=== PATIENT | female | born 1965 | race Caucasian/White ===

== ENCOUNTER 2020-09-22 13:06 | Observation (INO) | payer OTHER, SELFPAY ==
[2020-09-22 13:07] VITALS: BP 122/77; PULSE 88; RESP 14; TEMP 36.8; O2SAT 100; BMI 36.6
[2020-09-22 13:09] VITALS: BP 122/77; PULSE 88; RESP 14; TEMP 36.8; O2SAT 100
--- NOTE | 2020-09-22 13:23 | EX.ED.DYSGE1 ---
HPI History of Present Illness Chief Complaint: Cellulitis Informant: patient and spouse/S.O. Onset/Context/Timing Onset: Days Context: Gradual Onset Current Severity: Mild Maximum Severity: Mild Narrative Narrative: 55-year-old female no segment past medical history currently on no medications other than vitamins. States that 2 days ago she started getting mild redness to her right lower extremity and it is gotten worse. Says she feels nauseated and dizzy. Denies fever. Denies any vomiting or diarrhea. She is never had this before. She denies any known trauma to her right lower extremity. Prior similar symptoms: No Recent Illness/Hospitalization: No PFSH PFSH no medical history Home Medications multivitamin 1 cap PO DAILY 09/22/20 [History Last Taken Unknown] Allergy/AdvReac Type Severity Reaction Status Date / Time codeine AdvReac Nausea Verified 09/22/20 13:09 Surgical History H/O hernia repair Tubal ligation status Social History Smoking Status: Never smoker ROS ROS ED ROS Narrative Nausea and dizziness. Review of Systems ROS Unobtainable: Denies due to encephalopathy Constitutional Constitutional ED: Denies chills or fever(s) Eyes Eyes: Denies blurry vision or change in vision ENT ENT ED: Denies ear pain or sore throat Cardiovascular Cardiovascular: Denies chest pain Respiratory/Chest Respiratory/Chest: Denies dyspnea Gastrointestinal Gastrointestinal: Reports nausea; Denies abdominal pain, diarrhea or vomiting Genitourinary Genitourinary ED: Denies dysuria or hematuria Musculoskeletal Musculoskeletal: Denies myalgias Integumentary Reports rash Neurologic Neurologic: Denies headache(s) Psychiatric Psychiatric: Denies depression Endocrine Endocrinology: Denies polyuria Allergic/Immunologic Allergic/Immunologic ED: Denies urticaria EXAM Physical Exam Narrative Exam Narrative: White female no acute distress. Initial blood pressure 122/77. Heart rate 88. She does not look septic or toxic. She has an obvious cellulitis on her right lower extremity between the knee and the ankle. Not involving the joints. Right foot is neurovascularly intact. Skin is intact. There is red and warm to the touch. Mildly tender. There is no inguinal lymphadenopathy. Lungs are clear. Heart regular rhythm. No murmur. Abdomen nontender. Const Vital Signs: 09/22/20 13:07 09/22/20 13:09 Temperature 98.2 F 98.2 F Temperature Source Oral Oral Pulse Rate 88 88 Respiratory Rate 14 14 Blood Pressure 122/77 H 122/77 H Blood Pressure Mean 92 92 Pulse Ox 100 100 Oxygen Delivery Method Room Air Room Air Positive well nourished and well developed; Negative for unkempt General Appearance ED: well developed and NAD; Negative for unkempt HEENT Reports moist mucous membranes Negative for trauma or tenderness Eyes PERRL and EOMs intact bilaterally Neck no lymphadenopathy, supple and no JVD General: Negative for tenderness Chest Wall inspection of chest normal Resp normal respiratory effort and clear to auscultation bilaterally Cardio regular rate, regular rhythm, S1 normal heart sound, S2 normal heart sound and no murmurs GI normal to inspection, nondistended, normoactive bowel sounds, non-tender and non-distended Palpation: soft Back/Spine no CVA tenderness Extremity Extremity Narrative: Right lower extremity cellulitis. General Extremety ED: Yes edema and tenderness General Extremity: edema Neuro oriented x3 and CN's II-XII intact bilaterally Sensorium / Orientation: alert; Negative for lethargic or stuporous Motor Exam: strength 5/5 throughout Psych mental status grossly normal Appearance: Negative for unkempt Skin no wounds Rashes: rashes noted MDM MDM MDM Narrative Medical decision making narrative: Middle-aged female with a cellulitis of right lower extremity. Will be started on IV Zosyn and vancomycin. Labs being obtained. She will be admitted to the hospital. Repeat exam unchanged at 2:10 PM. I discussed test results with patient. Awaiting hospitalist for admission. Lab Data Attestation: I reviewed the patient's lab results. Lab results narrative: CBC shows white count 10. Hemoglobin 13. No bands. Electrolytes show sodium 129. Gap at 9. Creatinine 0.8. Glucose elevated 358. Lactic acid normal at 1.9. The elevated glucose will need further evaluation because the patient tells me she is not diabetic. Labs: Laboratory Results - last 24 hr 09/22/20 09/22/20 09/22/20 13:25 13:25 13:25 WBC 10.3 RBC 4.54 Hgb 13.1 Hct 39.2 MCV 86.3 MCH 28.9 MCHC 33.4 RDW Std Deviation 39.8 RDW Coeff of Giuliano 12.5 Plt Count 331 MPV 9.3 Immature Gran % (Auto) 0.600 Neut % (Auto) 84.8 H Lymph % (Auto) 8.9 L [place] % (Auto) 5.4 Eos % (Auto) 0.1 Baso % (Auto) 0.2 Absolute Neuts (auto) 8.7 H Absolute Lymphs (auto) 0.92 Nucleated RBC % 0 Sodium 129 L Potassium 3.7 Chloride 93 L Carbon Dioxide 27.0 Anion Gap 9 BUN 23 H Creatinine 0.81 Estim Creat Clear Calc 76.31 Est GFR (MDRD) Af Amer 94 Est GFR (MDRD) Non-Af 78 BUN/Creatinine Ratio 28.4 H Glucose 358 H Lactic Acid 1.9 Calcium 9.2 Discharge Plan Dx/Rx/DC Orders Clinical Impression: Cellulitis of leg, right, Acute hyperglycemia, Diabetes mellitus, new onset, Acute hyponatremia Disposition Disposition: Acute Care [facility]
[2020-09-22 13:37] LABS: Absolute Lymphocyte Count 0.92 X10^3/uL (0.83-4.51); Absolute Neutrophil Count 8.7 X10^3/uL (2.0-7.7); Basophil# 0.02 X10^3/uL; Basophil% 0.2 % (0-1); Eosinophil# 0.01 X10^3/uL; Eosinophils% 0.1 % (0-5); Hematocrit 39.2 % (37-47); Hemoglobin 13.1 g/dL (12.0-15.0); Lymphocyte # 0.92 X10^3/ul (0.83-4.51); Lymphocyte % 8.9 % (19-41); Mean Corp Hgb Conc 33.4 g/dL (32-36); Mean Corpuscular Hgb 28.9 pg (27.0-32.0); Mean Corpuscular Volume 86.3 fL (81-99); Mean Platelet Vol. 9.3 fl (6.2-12.0); Monocyte# 0.55 X10^3/uL; Monocyte% 5.4 % (0-10); NRBC Flagged by Analyzer 0 % (0-5); Neutrophil # 8.72 X10^3/uL (2.7-7.7); Neutrophil % 84.8 % (47-70); Platelet Count 331 K/mm3 (150-450); RBC Distribution Width CV 12.5 % (11.6-14.6); RBC Distribution Width SD 39.8 fl (35.1-43.9); Red Blood Count 4.54 M/mm3 (4.2-5.4); White Blood Count 10.3 K/mm3 (4.4-11.0)
[2020-09-22] MEDS: 0.9% Normal Saline 1,000 ML 999 ML IV (13:38)
[2020-09-22] MEDS: Ondansetron 4 MG/2 ML Vial IV ×2 (13:38→22:46)
[2020-09-22 13:52] LABS: Anion Gap 9 (5-15); BUN 23 mg/dL (7-18); BUN/Creat Ratio 28.4 RATIO (10-20); Calcium,Total 9.2 mg/dL (8.5-10.1); Chloride 93 mmol/L (98-107); Creatinine, Serum 0.81 mg/dL (0.55-1.02); EST Glomerular Filtration Rate 78 mL/min (>60); Est Glom Filt Rate - Afr Amer 94 mL/min (>60); Estimated Creatinine Clearance 76.31 ml/min; Glucose 358 mg/dL (74-106); Potassium 3.7 mmol/L (3.5-5.1); Sodium Level 129 mmol/L (136-145)
[2020-09-22 13:59] LABS: Lactic Acid 1.9 mmol/L (0.4-1.9)
[2020-09-22 14:27] VITALS: BP 135/76; PULSE 88; RESP 16; TEMP 36.9; O2SAT 98
--- NOTE | 2020-09-22 15:03 | HP.PCM_ITS ---
Documented by User: JOVITA Lerma 09/22/20 15:17 HPI - General General Date of Admission: 09/22/20 Date of Service: 09/22/20 Chief Complaint: Right lower extremity cellulitis, new onset diabetes mellitus type 2 HPI Narrative SARAI MURILLO, is a 55 F who presents with complaints of right lower extremity redness and swelling. Patient states that started approximately 2 days ago and she is unsure if she has scratched herself. Patient also reports nausea and occasional lightheadedness. Patient reports that she does not currently have a PCP as she has been otherwise healthy in the past and does not currently have health insurance. Patient denies fever, chills, shortness of breath, chest pain, vomiting, diarrhea, constipation. [facility] Medical History (Updated 09/22/20 @ 15:05 by Shayna Tam NP-C) Diabetes mellitus, new onset Home Medications multivitamin 1 tab PO DAILY 09/22/20 [History Last Taken 09/22/20] Allergy/AdvReac Type Severity Reaction Status Date / Time codeine AdvReac Nausea Verified 09/22/20 13:09 Family History (Updated 09/22/20 @ 15:05 by JOVITA Lerma) Father Diabetes Surgical History H/O hernia repair Tubal ligation status Social History Smoking Status: Never smoker ROS Constitutional Constitutional: Denies anorexia, chills, fatigue or weakness Cardiovascular Cardiovascular: Reports edema; Denies chest pain or palpitations Respiratory/Chest Respiratory/Chest: Denies cough, shortness of breath at rest or shortness of breath with exertion Gastrointestinal Gastrointestinal: Reports nausea; Denies abdominal pain, constipation, diarrhea or vomiting Genitourinary Genitourinary: Denies dysuria or polyuria Musculoskeletal Musculoskeletal: Denies back pain, extremity pain, joint pain or joint stiffness Integumentary Integumentary: Reports rash; Denies dry skin Neurologic Neurologic: Denies abnormal gait, abnormal speech, confusion, dizziness or focal weakness Psychiatric Psychiatric: Denies anxiety or depression Endocrine Endocrinology: Denies change in body appearance Hematologic/Lymphatic Hematologic/Lymphatic: Denies easy bleeding or easy bruising Vital Signs Vital Signs Vital Signs: 09/22/20 13:07 09/22/20 13:09 09/22/20 14:27 Temperature 98.2 F 98.2 F 98.5 F Temperature Source Oral Oral Oral Pulse Rate 88 88 88 Respiratory Rate 14 14 16 Blood Pressure 122/77 H 122/77 H 135/76 H Blood Pressure Mean 92 92 95 Pulse Ox 100 100 98 Oxygen Delivery Method Room Air Room Air Room Air Weight Weight: 234 lb Body Mass Index (BMI) 36.6 Physical Exam Const alert and oriented x3 General Appearance: cooperative HEENT normocephalic and head/scalp atraumatic Eyes conjunctivae normal and no scleral icterus Neck supple and no JVD General: trachea midline Resp normal respiratory effort, normal air movement and clear to auscultation bilaterally Cardio regular rate, regular rhythm, S1 normal heart sound and S2 normal heart sound GI normal to inspection, nondistended, normoactive bowel sounds, soft to palpation and non-tender Extremity normal capillary refill General Extremity: edema right lower extremity moderate and no tenderness to palpation of joints or extremities Skin General Skin Exam: turgor normal Rashes: rashes noted Right lower extremity patch symmetrical erythematous dry, shiny and warm nontender cellulitis Neuro no focal motor deficits and no sensory deficits noted Speech: speech normal Motor Exam: strength 5/5 throughout; Negative for general weakness Psych thought process normal, cooperative and affect normal Appearance: appropriate Results Lab / Micro Data Result Diagrams: 09/22/20 13:25 09/22/20 13:25 Labs: Laboratory Results - last 24 hr 09/22/20 13:25: WBC 10.3, RBC 4.54, Hgb 13.1, Hct 39.2, MCV 86.3, MCH 28.9, MCHC 33.4, RDW Std Deviation 39.8, RDW Coeff of Giuliano 12.5, Plt Count 331, MPV 9.3, Immature Gran % (Auto) 0.600, Neut % (Auto) 84.8 H, Lymph % (Auto) 8.9 L, [place] % (Auto) 5.4, Eos % (Auto) 0.1, Baso % (Auto) 0.2, Absolute Neuts (auto) 8.7 H, Absolute Lymphs (auto) 0.92, Nucleated RBC % 0 09/22/20 13:25: Sodium 129 L, Potassium 3.7, Chloride 93 L, Carbon Dioxide 27.0, Anion Gap 9, BUN 23 H, Creatinine 0.81, Estim Creat Clear Calc 76.31, Est GFR (MDRD) Af Amer 94, Est GFR (MDRD) Non-Af 78, BUN/Creatinine Ratio 28.4 H, Glucose 358 H, Calcium 9.2 09/22/20 13:25: Lactic Acid 1.9 Assessment & Plan Assessment/Plan (1) Cellulitis of leg, right: (2) Diabetes mellitus, new onset: (3) Acute hyponatremia: PLAN: 1. Cellulitis of right lower leg -admit to [facility] for observation -Will DC Vanco and Zosyn, initiate Ancef -Errol wrap to right lower leg -CBC and BMP ordered daily -Elevate extremity when in bed or in chair -Cover blistered area to posterior right lower extremity with gauze prior to applying Errol wrap 2. New onset diabetes mellitus type 2 -Will initiate patient on Amaryl 4 mg p.o. daily and Metformin 500 mg p.o. twice daily -AC at bedtime blood sugars with sliding scale insulin ordered -Would recommend follow-up with Dr. Kendall Knapp after discharge -Patient currently has no PCP, discussed with patient and will finish list of available providers in area as patient will need extensive follow-up to monitor progress of cellulitis. 3. Acute hyponatremia -Likely secondary to dehydration as patient states she has not ate or drink anything in the past 2 to 3 days if she has felt unwell -Will obtain daily BMP, kidney function currently stable -Patient received 1 L normal saline bolus in ER, will hold off on IV fluids at this time however encourage patient to increase p.o. intake and utilize antiemetics as needed. DVT prophylaxis-not indicated, encourage ambulation This patient was seen by Shayna Tam, JAZMYN-C under the supervision of Dr. Morales. Documented by User: Dr. Nicanor Morales DO 09/22/20 17:32 HPI - General General Date of Admission: 09/22/20 [facility] Medical History (Updated 09/22/20 @ 15:05 by YESICA LermaC) Diabetes mellitus, new onset Home Medications multivitamin 1 tab PO DAILY 09/22/20 [History Last Taken 09/22/20] Allergy/AdvReac Type Severity Reaction Status Date / Time codeine AdvReac Nausea Verified 09/22/20 13:09 Family History (Updated 09/22/20 @ 15:05 by YESICA LermaC) Father Diabetes Surgical History H/O hernia repair Tubal ligation status Social History Smoking Status: Never smoker Results Lab / Micro Data Result Diagrams: 09/22/20 13:25 09/22/20 13:25 Charges/Coding Addendum Addendum: Patient was seen and examined in the emergency room today independently of Mindi Tam, she came to the ER today for evaluation of extreme right lower leg redness and swelling over the last 2 days. Patient denies any trauma to the leg. She does not take any medications at home and has no history of any medical problems according to the patient. On examination she appeared in good health and spirits, she does not appear to be in any distress. Vital signs as documented. Skin warm and dry and without overt rashes. Neck without JVD, thyroid appears normal, trachea is midline, neck is supple. Lungs clear, normal air movement was noted. Heart exam notable for regular rhythm, normal sounds and absence of murmurs, rubs or gallops. Abdomen unremarkable and without evidence of organomegaly, masses, or abdominal aortic enlargement, bowel sounds are present in all 4 quadrants, no abdominal tenderness was noted. Extremities-severe edema of the right lower leg was noted to be present, there was a reddened rash over the majority of the right lower leg along with bullous skin areas behind the right lower leg, no cyanosis was noted, no clubbing was noted. Neuro: Cranial nerves II through XII are grossly intact, no focal motor deficits were noted, sensation to light touch and pinprick is intact, motor exam 5/5 throughout. Psych: Patient is alert and oriented x3, she does not appear anxious or depressed, she does not appear agitated.\ Patient's labs revealed normal white blood cell count, patient's blood sugar was elevated at 358. Patient will be placed in observation status for right lower leg cellulitis, she was given Zosyn and vancomycin in the emergency room, I will maintain her on IV Ancef and wrap her right lower leg. Patient will be placed on oral diabetic medications and blood sugars will be monitored and she will be given sliding scale insulin. Patient will need follow-up with a PCP at the time of discharge from the hospital, she does not have a primary care doctor at this time. I have reviewed Mindi Anel's history and physical including her medical assessment and plan of care and endorse it. Visit Charges OBSV E&M: 90221 Initial observation care L3
[2020-09-22 15:23] VITALS: BP 135/76; PULSE 88; RESP 16; TEMP 36.9; O2SAT 100
[2020-09-22 16:00] VITALS: BMI 36.6
--- NOTE | 2020-09-22 16:14 | NURSING ---
wound photo: right great toe
--- NOTE | 2020-09-22 16:14 | NURSING ---
skin photo: right lower leg
[2020-09-22 16:50] LABS: Bedside Glucose 282 mg/dL (70-110)
[2020-09-22] MEDS: Insulin Lispro 100 UNIT/ML INSULN.PEN SC ×2 (16:58→23:02)
[2020-09-22] MEDS: metFORMIN HCl 500 MG Tablet PO (16:59)
[2020-09-22 18:27] LABS: M R Staph aureus DNA By PCR Negative (Negative); Probe Check PASS; Specimen Processing Control PASS; Staph aureus DNA By PCR NEGATIVE (Negative)
--- NOTE | 2020-09-22 20:18 | RAD_ITS ---
STUDY: X-RAY - RIGHT FOOT CLINICAL: Female, 55 years old. Right great toe ulcer TECHNIQUE: 3 view(s) of the foot. COMPARISON: None. FINDINGS: Normal talus, calcaneus, and tarsal bones. Plantar calcaneal spurring. Normal visualized subtalar, talonavicular, calcaneocuboid, tarsal and tarsometatarsal articulations. Normal metatarsi. Normal metatarsophalangeal joint of the great toe. Normal tibial and fibular sesamoid bones. Normal interphalangeal joint of the great toe. Normal phalanges of the great toe. Normal second through fifth metatarsophalangeal joints. Normal interphalangeal joints and phalanges of the lesser toes. Soft tissue swelling of the foot and the first toe. RAD/Foot min 3 Views IMPRESSION: Soft tissue swelling of the foot and first toe. No definite radiographic evidence of osteomyelitis. Electronically Signed: Clint Hanson DO at 22:57 EDT Tel [phone], Service support ,
--- NOTE | 2020-09-22 20:18 | RAD_ITS ---
STUDY: X-RAY - RIGHT TIBIA AND FIBULA REASON FOR EXAM: Female, 55 years old. Cellulitis right leg TECHNIQUE: 2 view(s) of the tibia and fibula were obtained. COMPARISON: None. FINDINGS: Normal visualized tibia. Normal visualized fibula. There is soft tissue edema. RAD/Tibia & Fibula 2 Views IMPRESSION: No acute pathology of the tibia and fibula. Soft tissue edema of the lower leg. Electronically Signed: Clint Hanson DO at 22:54 EDT Tel [phone], Service support ,
[2020-09-22 20:25] VITALS: O2SAT 95
--- NOTE | 2020-09-22 22:20 | PCM.CONS.GEN ---
Assessment & Plan Assessment/Plan (1) Cellulitis of leg, right: PLAN: Evaluation performed. Right foot and tib/fib xrays here obtained, no evidence of gas or acute osteomyelitis, radiology read pending. clinically there is no cellulitis or evidence of infection directly to the ulceration on the right 1st toe or foot, however ulceration could have been portal of entry for bacteria to cause right leg cellulitis. A culture of the right 1st toe ulcer has been obtained and results pending. The right leg has a blister which is superficial - after consent was obtained and blister was gently drained and cultured - this was sent to microbiology. Patient has normal WBC and is afebrile. She was diagnosed with diabetes today. After consent was obtained right 1st toe ulceration was debrided in excisional fashion using a 15 blade. Excised all nonviable tissue down to healthy viable base and margins - there is no probe to bone. It was debrided down to subcutaneous tissue layer. No anesthesia was needed due to patient's neuropathy. Hemostasis was achieved with pressure and gauze. Post debridement the ulcer measured 2.5cm x 1.3cm and 0.2cm in depth down to the subcutaneous tissue. A dressing was applied which consisted of betadine soln and gauze, kerlix and nirav dressing. Change daily using Aquacel Ag and gauze, kerlix and nirav. No weightbearing on right forefoot ulceration site- reviewed importance of this with patient. Reviewed proper wound care, and the importance of proper blood sugar control to help optimize wound healing. Patient with chronic wound - noninvasive vascular studies will be ordered. Podiatry will continue to follow - thank you from consult. (2) Diabetes mellitus with diabetic polyneuropathy: (3) Non-pressure chronic ulcer of other part of right foot with fat layer exposed: (4) Type 2 diabetes mellitus with foot ulcer: (5) Diabetes mellitus, new onset: HPI Consult Data Date of Consult: 09/22/20 HPI Narrative HPI Narrative: SARAI MURILLO, is a 55 F who presents with right leg cellulitis and right 1st toe ulceration. Patient was found to have hyperglycemia today, she did not know she had diabetes. She relates she had had a wound to the right 1st toe for about 1 year, she has not gone to a physician for many years. She has been trying to maintain the wound herself but it has not healed. She presented to the ER today due to right leg redness - diagnosed with cellulitis and was admitted for further evaluation and management. Patient denies any pain to the wound right 1st toe. She has no fever, vomiting, or chills but relates to some nausea. No other complaints. [facility] Medical History (Updated 09/22/20 @ 22:[address] Chaz Chance, DPM) Diabetes mellitus, new onset Home Medications multivitamin 1 tab PO DAILY 09/22/20 [History Last Taken 09/22/20] Allergy/AdvReac Type Severity Reaction Status Date / Time codeine AdvReac Nausea Verified 09/22/20 13:09 Family History (Updated 09/22/20 @ 15:05 by Shayna Tam, JAZMYN-C) Father Diabetes Surgical History H/O hernia repair Tubal ligation status Social History Smoking Status: Never smoker Physical Exam Const alert, oriented x3 and no apparent distress Extremity Extremity Narrative: There is erythema to the right leg with edema, there is a blister to the posterior medial aspect of the right leg - it was drained and there is yellow serous fluid drainage, there is ulceration to th eplantar 1st toe down to subcutaneous tissue - it measured 1.0cm x 2.2cm and 0.2cm in depth prior to debridement - there is noted to be nonviable tissue to the margins and parts of the base, there is no probe to bone or deep tissue, there are no other open lesions, there is no evidence of infection to the right 1st toe or foot, there is no maloder, no visible abscess, no crepitus, no fluctuance, no streaking noted. Hammer toes noted, pes planus noted, limited 1st MTPJ dorsiflexion noted right foot - all chronic in nature. There is decreased sensation to the foot consistent with peripheral neuropathy. No POP or pain on ROM to the foot or ankle. Lab / Micro Data Result Diagrams: 09/22/20 13:25 09/22/20 13:25 Labs: Laboratory Results - last 24 hr 09/22/20 13:25: WBC 10.3, RBC 4.54, Hgb 13.1, Hct 39.2, MCV 86.3, MCH 28.9, MCHC 33.4, RDW Std Deviation 39.8, RDW Coeff of Giuliano 12.5, Plt Count 331, MPV 9.3, Immature Gran % (Auto) 0.600, Neut % (Auto) 84.8 H, Lymph % (Auto) 8.9 L, [place] % (Auto) 5.4, Eos % (Auto) 0.1, Baso % (Auto) 0.2, Absolute Neuts (auto) 8.7 H, Absolute Lymphs (auto) 0.92, Nucleated RBC % 0 09/22/20 13:25: Sodium 129 L, Potassium 3.7, Chloride 93 L, Carbon Dioxide 27.0, Anion Gap 9, BUN 23 H, Creatinine 0.81, Estim Creat Clear Calc 76.31, Est GFR (MDRD) Af Amer 94, Est GFR (MDRD) Non-Af 78, BUN/Creatinine Ratio 28.4 H, Glucose 358 H, Calcium 9.2 09/22/20 13:25: Lactic Acid 1.9 09/22/20 15:50: S.aureus Protein A PCR NEGATIVE, MRSA (PCR) Negative 09/22/20 16:46: POC Glucose 282 H
--- NOTE | 2020-09-22 22:33 | VDLE_ITS ---
Reason For Study: Swelling RIGHT GSV is normal. CFV is compressible, spontaneous, phasic, competent and demonstrates normal augmentation. FV is compressible, spontaneous, phasic, competent and demonstrates normal augmentation. POP V is compressible, spontaneous, phasic, competent and demonstrates normal augmentation. T/P Trunk is compressible. PTV is compressible. RT PerV is compressible. Relied on color doppler in Rt CFV and junction, patient unable to tolerate compressions Difficult to visualize Rt PeroV. Procedure This is a venous duplex using B-mode, color flow and spectral Doppler. Exam performed portable in patient room. A preliminary report was called and/or faxed to Patients RN. VL/Venous Duplex US, Unilateral Interpretation Summary Deep veins of the right lower extremity are patent and compressible segmentally . There is no evidence of right lower extremity deep vein thrombosis. Valvular competence vern ears intact within the proximal deep venous system on the right . The right great saphenous vein a ppears patent and compressible segmentally. The right peroneal vein was not well visualized. Ordering Physician: Chaz Chance Performed By: Opal Whittington, LORI, RVT
--- NOTE | 2020-09-22 22:33 | ART_ITS ---
Reason For Study: Ulcer Procedure A bilateral lower extremity continuous wave Doppler with analog waveform analysis,segmental pressures,and ankle brachial indexes without exercise. Left Segmental Pressures Left brachial= 162mmHg. Left posterior tibial artery = 207mmHg. Left dorsalis pedis artery = 178mmHg. Left digit = 162 mmHg. The left dorsalis pedis waveforms are triphasic. The left posterior tibial artery waveforms are triphasic. Right Segmental Pressures Right brachial= 161mmHg. Right posterior tibial artery = 183mmHg. Right dorsalis pedis artery = 173mmHg. The right dorsalis pedis waveforms are triphasic. The right posterior tibial artery waveforms are triphasic. Indices The right ankle brachial index by the dorsalis pedis is 1.07. The right ankle brachial index by the posterior tibial artery is 1.13. The left ankle brachial index by the dorsalis pedis is 1.10. The left ankle brachial index by the posterior tibial artery is 1.28. The left digital-brachial index is 1.00. VL/Lower Ext Art Exam w/o Exercis Interpretation Summary Triphasic Doppler waveforms are noted at ankle level bilaterally. Pulse-volume recordings appear satisfactory at all levels bilaterally. Resting ankle-brachial indices are norm al bilaerally. The right digital-brachial index was not determined due to bandaging. The left digi jeremiah-brachial index is normal. There is no evidence of significant arterial occlusive disease in the lower ext remities bilaterally. Ordering Physician: Chaz Chance Performed By: Terrie Perez RVT
[2020-09-22 22:43] VITALS: BP 128/72; PULSE 85; RESP 18; TEMP 37; O2SAT 100
[2020-09-22] MEDS: Cefazolin 2 GM in 0.9% Normal Saline 100 ML IV (22:46)
[2020-09-22] MEDS: MELATONIN 3 MG TABLET PO (22:46)
[2020-09-22] MEDS: Acetaminophen 325 MG Tablet 650 MG PO (22:46)
[2020-09-23 04:44] VITALS: BP 145/84; PULSE 86; RESP 18; TEMP 37.1; O2SAT 98
[2020-09-23 06:11] LABS: Absolute Lymphocyte Count 1.22 X10^3/uL (0.83-4.51); Absolute Neutrophil Count 3.9 X10^3/uL (2.0-7.7); Basophil# 0.02 X10^3/uL; Basophil% 0.4 % (0-1); Eosinophil# 0.03 X10^3/uL; Eosinophils% 0.5 % (0-5); Hemoglobin 11.1 g/dL (12.0-15.0); Lymphocyte # 1.22 X10^3/ul (0.83-4.51); Lymphocyte % 21.8 % (19-41); Mean Corp Hgb Conc 32.6 g/dL (32-36); Mean Corpuscular Hgb 28.7 pg (27.0-32.0); Mean Corpuscular Volume 87.9 fL (81-99); Mean Platelet Vol. 9.2 fl (6.2-12.0); Monocyte# 0.43 X10^3/uL; Monocyte% 7.7 % (0-10); NRBC Flagged by Analyzer 0 % (0-5); Neutrophil # 3.86 X10^3/uL (2.7-7.7); Neutrophil % 68.9 % (47-70); Platelet Count 279 K/mm3 (150-450); RBC Distribution Width CV 12.8 % (11.6-14.6); RBC Distribution Width SD 41.5 fl (35.1-43.9); Red Blood Count 3.87 M/mm3 (4.2-5.4); White Blood Count 5.6 K/mm3 (4.4-11.0)
[2020-09-23] MEDS: Cefazolin 2 GM in 0.9% Normal Saline 100 ML IV (06:25)
[2020-09-23] MEDS: Insulin Lispro 100 UNIT/ML INSULN.PEN SC ×2 (06:31→12:40)
[2020-09-23 06:35] LABS: Bedside Glucose 275 mg/dL (70-110)
[2020-09-23 06:38] LABS: Anion Gap 5 (5-15); BUN 18 mg/dL (7-18); BUN/Creat Ratio 34.3 RATIO (10-20); Calcium,Total 8.5 mg/dL (8.5-10.1); Chloride 102 mmol/L (98-107); Creatinine, Serum 0.52 mg/dL (0.55-1.02); EST Glomerular Filtration Rate 129 mL/min (>60); Est Glom Filt Rate - Afr Amer 156 mL/min (>60); Estimated Creatinine Clearance 118.87 ml/min; Glucose 256 mg/dL (74-106); Potassium 3.8 mmol/L (3.5-5.1); Sodium Level 135 mmol/L (136-145)
[2020-09-23 07:26] LABS: Bedside Glucose 263 mg/dL (70-110)
[2020-09-23 07:59] LABS: M R Staph aureus DNA By PCR Negative (Negative); Probe Check PASS; Specimen Processing Control PASS; Staph aureus DNA By PCR NEGATIVE (Negative)
[2020-09-23] MEDS: metFORMIN HCl 500 MG Tablet PO (09:07)
--- NOTE | 2020-09-23 09:07 | NURSING ---
wound photo: right great toe
[2020-09-23] MEDS: Glimepiride 4 MG Tablet PO (09:08)
--- NOTE | 2020-09-23 09:08 | NURSING ---
skin photo: right lower leg
--- NOTE | 2020-09-23 09:08 | NURSING ---
wound photo: right posterior lower leg
[2020-09-23 09:16] VITALS: BP 139/56; PULSE 86; RESP 18; TEMP 36.7; O2SAT 100
--- NOTE | 2020-09-23 11:08 | CASEMGMT ---
Addendum entered by Maddy Guerra 09/23/20 12:52: SW assisted pt in completing Medicaid application and faxed it into [facility] for pt. SW also offered pt support as she lost her mother recently. SW offered resources for bereavement counseling, pt declined. No further needs anticipated at this time. FARRAH Ham Original Note: SW met w/pt in regard to self pay status. SW inquired if pt has ever applied for Medicaid, she states she has not but would like to do so. SW gave pt Medicaid application, and resources including information on [employer], [place], [facility] assist, prescription assistance programs, Dental clinics, and food chua. Pt would like to fill out the Medicaid application, SW explained can fax it to [facility] for her if she would like. Pt would like SW to do this. SW will go back shortly to get the completed application and fax it in for pt. FARRAH Ham
[2020-09-23 11:40] LABS: Bedside Glucose 251 mg/dL (70-110)
--- NOTE | 2020-09-23 11:45 | CASEMGMT ---
SIDDHARTH KRUEGER Assessment: Face to Face with pt for initial transition planning/care coordination assessment. RN EVANS introduced self and role at [facility], pt voices understanding and consents to assessment. Pt is A/O x4 and answers all questions appropriately at this time. Care providers, pharmacy, and demographics verified/updated. Admitting Dx: cellulitis, new onset DM PCP:Pt does not have PCP. Provided pamphlet of local PCP's. Specialists:Pt denies having any specialists. [facility]erred [facility]: [facility] Insurance: Self pay Prescription Benefit: No LW/HPOA: Pt states she does have LW/DPOA but states she is unsure who she designated as DPOA. Pt is aware that she can bring in to have scanned in to her chart at any time. LNOK: [facility], sig other Living Arrangements: Pt lives with dtr and sig other in a single story house with 3 steps to enter. Pt reports being I in ADL's and denies concerns at home. Transportation: Pt drives self and denies issues with transportation. DME/HHC: Pt has a walker at home but does not use. Denies hx of previous HHC. Discussed HHC options but due to patient not having insurance she denies the need for. She states she has had a wound vac in the past and her sig other was taught how to change it. He is planning on providing the wound care to pt. Discussed the CCN for pt and services provided and it is no charge. Pt is overwhelmed and states she has done blood sugar testing before and denies the need for nursing to check on her. Pt is aware how often to check her blood sugar and to keep a log. Discussed with pt that [facility] has a glucometer named Reli-On with lancets, strips and the meter for approx $20. Pt states she is getting her meds at [facility] so she will get her meter there as well. Pt states no concerns with going home at time of dc. Pt states no further concerns/needs. CM to follow. Advised pt to ask CM if any further question/concerns/needs arise, voices understanding. Pt Goal: Home Plan: Home with sig other support
[2020-09-23 13:49] VITALS: O2SAT 95
--- NOTE | 2020-09-23 14:18 | PN_ITS ---
Subjective Subjective Patient was seen today for follow up on right 1st toe and leg - sites improving. She has no new complaints. No fevers, no new complaints at this time. Objective Data Objective Data Vital Signs: Vital Signs Temp Pulse Resp BP Pulse Ox 98.0 F 86 18 139/56 H 95 09/23/20 09:16 09/23/20 09:16 09/23/20 09:16 09/23/20 09:16 09/23/20 13:49 Oxygen Delivery Method Room Air Weight: 106.277 kg Body Mass Index (BMI) 36.6 Intake & Output: Intake and Output for Last 24 Hours 09/21/20 09/22/20 09/23/20 23:59 23:59 23:59 Intake Total 1741.25 / 2041.25 671.00 / 671.00 Balance 1741.25 / 2041.25 671.00 / 671.00 Lab / Micro Data Result Diagrams: 09/23/20 05:40 09/23/20 05:40 Labs: Laboratory Results - last 24 hr 09/22/20 15:50: S.aureus Protein A PCR NEGATIVE, MRSA (PCR) Negative 09/22/20 16:46: POC Glucose 282 H 09/22/20 22:00: S.aureus Protein A PCR NEGATIVE, MRSA (PCR) Negative 09/22/20 23:01: POC Glucose 263 H 09/23/20 05:40: WBC 5.6, RBC 3.87 L, Hgb 11.1 L, Hct 34.0 L, MCV 87.9, MCH 28.7, MCHC 32.6, RDW Std Deviation 41.5, RDW Coeff of Giuliano 12.8, Plt Count 279, MPV 9.2, Immature Gran % (Auto) 0.700, Neut % (Auto) 68.9, Lymph % (Auto) 21.8, [place] % (Auto) 7.7, Eos % (Auto) 0.5, Baso % (Auto) 0.4, Absolute Neuts (auto) 3.9, Absolute Lymphs (auto) 1.22, Nucleated RBC % 0 09/23/20 05:40: Sodium 135 L, Potassium 3.8, Chloride 102, Carbon Dioxide 28.0, Anion Gap 5, BUN 18, Creatinine 0.52 L, Estim Creat Clear Calc 118.87, Est GFR (MDRD) Af Amer 156, Est GFR (MDRD) Non-Af 129, BUN/Creatinine Ratio 34.3 H, Glu cose 256 H, Calcium 8.5 09/23/20 06:30: POC Glucose 275 H 09/23/20 11:29: POC Glucose 251 H Micro: Microbiology 09/22/20 22:00 Wound - Leg, Right Gram Stain - Final 09/22/20 22:00 Wound - Leg, Right Wound Culture - Preliminary No growth-Final to follow 09/22/20 15:50 Wound - Toe Gram Stain - Final 09/22/20 15:50 Wound - Toe Wound Culture - Preliminary Proteus sp. Radiography Diagnostic Testing: Radiology Impression Foot X-Ray 09/22/20 20:18 IMPRESSION: Soft tissue swelling of the foot and first toe. No definite radiographic evidence of osteomyelitis. Electronically Signed: Clint Hanson DO at 22:57 EDT Tel [phone], Service support , Tibia/Fibula X-Ray 09/22/20 20:18 IMPRESSION: No acute pathology of the tibia and fibula. Soft tissue edema of the lower leg. Electronically Signed: Clint Hanson DO at 22:54 EDT Tel [phone], Service support , Physical Exam Const alert, oriented x3 and no apparent distress Extremity Extremity Narrative: There is resolving erythema to the right leg with edema, there is a healing blister to the posterior medial aspect of the right leg - there is no evidence of infection to the right 1st toe or foot, there is no maloder, no visible abscess, no crepitus, no fluctuance, no streaking noted. Hammer toes noted, pes planus noted, limited 1st MTPJ dorsiflexion noted right foot - all chronic in nature. There is decreased sensation to the foot consistent with peripheral neuropathy. No POP or pain on ROM to the foot or ankle. Assessment & Plan Assessment/Plan (1) Cellulitis of leg, right: PLAN: Evaluation performed. Right foot and tib/fib xrays here obtained, no evidence of gas or acute osteomyelitis, clinically there is no cellulitis or evidence of infection directly to the ulceration on the right 1st toe or foot, however ulceration could have been portal of entry for bacteria to cause right leg cellulitis. The ulcer has been debrided and stable at this time. A culture of the right 1st toe ulcer and right leg blister has been obtained. Patient has normal WBC and is afebrile. She was diagnosed with diabetes yesterday. No weightbearing on right forefoot ulceration site- reviewed importance of this with patient. Reviewed proper wound care, and the importance of proper blood sugar control to help optimize wound healing. Wound care right 1st toe and right leg blister - cleanse both sites with normal saline solution - apply aquacel Ag with overlying gauze to the right 1st toe, apply dry gauze to blister site - after applying gauze dressing apply overlying nirav bandage - change daily. Patient with chronic wound - noninvasive vascular studies have been ordered. Podiatry will continue to follow - discussed with Dr. Morales and patient to be discharged home today - patient to follow up at our office next week - Saturday or Saturday, sooner if needed. (2) Diabetes mellitus with diabetic polyneuropathy: (3) Non-pressure chronic ulcer of other part of right foot with fat layer exposed: (4) Type 2 diabetes mellitus with foot ulcer: (5) Diabetes mellitus, new onset:
--- NOTE | 2020-09-23 14:23 | PCM.DC ---
Discharge Instructions Activity Weight Bearing Status: No weight bearing (No weightbearing on right 1st toe) Keep extremity elevated above heart level: Right Leg (Keep right foot elevated as much as possible.) Dressing / Incision Call your doctor if your incision/area has: Continuous Slow Oozing, Increased Pain/ Swelling, Increased Redness and Foul Smelling Discharge Additional Dressing/Incision Instructions:: Wound care right 1st toe and blister right leg: Cleanse both sites daily with normal saline solution. Apply Aquacel Ag or providone-iodine solution, cover both sites with dry gauze and apply overlying nirav bandage - change daily. Follow Up Care Please Follow Up With: Chaz Chance DPM When: [facility] early next week on Saturday or Saturday - we will call you will appointment. Our office number is [phone]. Our office address is [address] [place] [address], [facility], [place], [place] Page us over weekend if needed by calling the [facility] at [phone] Test Results: Test results from this visit will be discussed in further detail at your follow-up appointment, if applicable. Discharge Plan Admission Admit Date/Time: 09/22/20 15:03 Attending Provider: Nicanor Morales Primary Care Provider: Care Physician,No Primary Consulting Providers: Chaz Chance Discharge Orders/Prescriptions Prescriptions: No Action multivitamin Tablet 1 tab PO DAILY RF: 0
--- NOTE | 2020-09-23 14:23 | PCM.DC ---
Discharge Instructions Diet Discharge Diet: 1800 Calorie Control Diet Activity Discharge Activity: Return to Normal Activity Follow Up Care Test Results: Test results from this visit will be discussed in further detail at your follow-up appointment, if applicable. Discharge Plan Admission Admit Date/Time: 09/22/20 15:03 Attending Provider: Nicanor Morales Primary Care Provider: Care Physician,No Primary Consulting Providers: Chaz Chance Discharge Orders/Prescriptions Prescriptions: No Action multivitamin Tablet 1 tab PO DAILY RF: 0
--- NOTE | 2020-09-23 14:43 | PCM.DC ---
Discharge Instructions Diet Discharge Diet: Carb Control Diet Activity Discharge Activity: Return to Normal Activity Weight Bearing Status: No weight bearing (No weightbearing on right 1st toe) Keep extremity elevated above heart level: Right Leg (Keep right foot elevated as much as possible.) Dressing / Incision Call your doctor if your incision/area has: Continuous Slow Oozing, Increased Pain/ Swelling, Increased Redness and Foul Smelling Discharge Call your doctor if you observe: Fever of 101 or Higher and Calf discomfort Additional Dressing/Incision Instructions:: Wound care right 1st toe and blister right leg: Cleanse both sites daily with normal saline solution. Apply Aquacel Ag or providone-iodine solution, cover both sites with dry gauze and apply overlying nirav bandage - change daily. Follow Up Care Please Follow Up With: Chaz Chance DPM When: as scheduled with office Test Results: Test results from this visit will be discussed in further detail at your follow-up appointment, if applicable. Discharge Plan Admission Admit Date/Time: 09/22/20 15:03 Primary Reason for Your Visit: cellulitis Attending Provider: Nicanor Morales Primary Care Provider: Care Physician,No Primary Consulting Providers: Chaz Chance Instructions Patient Instructions: Diabetes: Inspecting Your Feet, Diabetes Learn Serve Portion Size, Diabetes Carbs Fats Protein, Getting Support When You Have ..., Glucose Check Steps Discharge Orders/Prescriptions Prescriptions: New metformin 500 mg Tablet 500 mg PO BIDCM 30 Days Qty: 120 RF: 0 glimepiride 4 mg Tablet 4 mg PO BREAKFAST 30 Days Qty: 30 RF: 2 cephalexin 500 mg capsule 500 mg PO .QID Qty: 40 RF: 0 fluconazole 150 mg tablet 150 mg PO Q3D Qty: 2 RF: 0 Continued multivitamin Tablet 1 tab PO DAILY RF: 0 Referrals / Follow Up: Care Physician,No Primary [Primary Care Provider] - Disposition Disposition (needs filled in before D/C Order can be placed): Home, Self Care
--- NOTE | 2020-09-23 14:55 | PCM.DC.SUM ---
Documented by User: JOVITA Lerma 09/23/20 15:03 Providers Date of Admission: 09/22/20 Primary Care Physician: No Primary Care Phys Consultations 09/22/20 16:23 Consult: Onc/Wound/expense clerk Routine Comment: Reason for Consult:: right great toe wound 09/22/20 19:42 Consult: Podiatry Routine Consulting Provider: Chaz Chance Reason for Consult: right great toe wound EMERGENT Consult: No MD Notified: Yes Date Notified: 09/22/20 Time Notified: 19:43 Method of Notification: Verbal Reason For Visit: CELLULITIS, NEW ONSET DM Diagnosis Discharge Diagnosis (1) Cellulitis of leg, right: Status: Acute Code(s): L03.115 - Cellulitis of right lower limb (2) Diabetes mellitus with diabetic polyneuropathy: Status: Acute Code(s): E11.42 - Type 2 diabetes mellitus with diabetic polyneuropathy (3) Non-pressure chronic ulcer of other part of right foot with fat layer exposed: Status: Chronic Code(s): L97.512 - Non-pressure chronic ulcer of other part of right foot with fat layer exposed (4) Type 2 diabetes mellitus with foot ulcer: Status: Acute Code(s): E11.621 - Type 2 diabetes mellitus with foot ulcer; L97.509 - Non-pressure chronic ulcer of other part of unspecified foot with unspecified severity (5) Diabetes mellitus, new onset: Status: Acute Code(s): E11.9 - Type 2 diabetes mellitus without complications Plan: 1. Cellulitis of right lower leg with first toe wound -Will DC on keflex for 10 days -Errol wrap to right lower leg with kerlix underneath. Wound care instructions per Dr. Chance. -Elevate extremity when in bed or in chair 2. New onset diabetes mellitus type 2 -Continue Amaryl 4 mg p.o. daily and Metformin 500 mg p.o. twice daily -Would recommend follow-up with Dr. Kendall Knapp after discharge -Patient currently has no PCP, discussed with patient and will finish list of available providers in area as patient will need extensive follow-up to monitor progress of cellulitis and diabetes -Blood sugars are improved currently sustaining within 200's blood sugar 358 upon admission 3. Acute hyponatremia -Improved, sodium 135 DVT prophylaxis-not indicated, encourage ambulation This patient was seen by JOVITA Lerma under the supervision of Dr. Morales. Medications at Discharge Home Medications multivitamin 1 tab PO DAILY 09/22/20 cephalexin 500 mg PO .QID #40 cap 09/23/20 fluconazole 150 mg PO Q3D #2 tab 09/23/20 glimepiride 4 mg PO BREAKFAST 30 Days #30 tab 09/23/20 metformin 500 mg PO BIDCM 30 Days #120 tab 09/23/20 Hospital Course Operations None Procedures None Summary of Care Provided Minutes Spent on Discharge: 35 Physical Exam Const alert and oriented x3 General Appearance: cooperative HEENT normocephalic and head/scalp atraumatic Eyes conjunctivae normal and no scleral icterus Neck supple and no JVD General: trachea midline Resp normal respiratory effort, normal air movement and clear to auscultation bilaterally Cardio regular rate, regular rhythm, S1 normal heart sound and S2 normal heart sound GI normal to inspection, nondistended, normoactive bowel sounds, soft to palpation and non-tender Extremity normal capillary refill General Extremity: edema right lower extremity moderate and no tenderness to palpation of joints or extremities Skin General Skin Exam: turgor normal Rashes: rashes noted Right lower extremity patch symmetrical erythematous dry, shiny and warm nontender cellulitis Neuro no focal motor deficits and no sensory deficits noted Speech: speech normal Motor Exam: strength 5/5 throughout; Negative for general weakness Psych thought process normal, cooperative and affect normal Appearance: appropriate Weight / BMI Weight Weight: 234 lb 4.811 oz Body Mass Index (BMI) 36.6 ABG / Lab / Microbiology Data Result Diagrams: 09/23/20 05:40 09/23/20 05:40 Laboratory: Laboratory Results - last 24 hr 09/22/20 15:50: S.aureus Protein A PCR NEGATIVE, MRSA (PCR) Negative 09/22/20 16:46: POC Glucose 282 H 09/22/20 22:00: S.aureus Protein A PCR NEGATIVE, MRSA (PCR) Negative 09/22/20 23:01: POC Glucose 263 H 09/23/20 05:40: WBC 5.6, RBC 3.87 L, Hgb 11.1 L, Hct 34.0 L, MCV 87.9, MCH 28.7, MCHC 32.6, RDW Std Deviation 41.5, RDW Coeff of Giuliano 12.8, Plt Count 279, MPV 9.2, Immature Gran % (Auto) 0.700, Neut % (Auto) 68.9, Lymph % (Auto) 21.8, [place] % (Auto) 7.7, Eos % (Auto) 0.5, Baso % (Auto) 0.4, Absolute Neuts (auto) 3.9, Absolute Lymphs (auto) 1.22, Nucleated RBC % 0 09/23/20 05:40: Sodium 135 L, Potassium 3.8, Chloride 102, Carbon Dioxide 28.0, Anion Gap 5, BUN 18, Creatinine 0.52 L, Estim Creat Clear Calc 118.87, Est GFR (MDRD) Af Amer 156, Est GFR (MDRD) Non-Af 129, BUN/Creatinine Ratio 34.3 H, Glucose 256 H, Calcium 8.5 09/23/20 06:30: POC Glucose 275 H 09/23/20 11:29: POC Glucose 251 H Microbiology: Microbiology 09/22/20 22:00 Wound - Leg, Right Gram Stain - Final 09/22/20 22:00 Wound - Leg, Right Wound Culture - Preliminary No growth-Final to follow 09/22/20 15:50 Wound - Toe Gram Stain - Final 09/22/20 15:50 Wound - Toe Wound Culture - Preliminary Proteus sp. Radiography Diagnostic Testing: Radiology Impression Foot X-Ray 09/22/20 20:18 IMPRESSION: Soft tissue swelling of the foot and first toe. No definite radiographic evidence of osteomyelitis. Electronically Signed: Clint Hanson DO at 22:57 EDT Tel [phone], Service support , Tibia/Fibula X-Ray 09/22/20 20:18 IMPRESSION: No acute pathology of the tibia and fibula. Soft tissue edema of the lower leg. Electronically Signed: Clint Hanson DO at 22:54 EDT Tel [phone], Service support , D/C Instructions Discharge Diet: Carb Control Diet Weight Bearing Status: No weight bearing (No weightbearing on right 1st toe) Keep extremity elevated above heart level: Right Leg (Keep right foot elevated as much as possible.) Call your doctor if your incision/area has: Continuous Slow Oozing, Increased Pain/ Swelling, Increased Redness and Foul Smelling Discharge Call your doctor if you observe: Fever of 101 or Higher and Calf discomfort Additional Dressing/Incision Instructions: Wound care right 1st toe and blister right leg: Cleanse both sites daily with normal saline solution. Apply Aquacel Ag or providone-iodine solution, cover both sites with dry gauze and apply overlying errol bandage - change daily. Please Follow Up With: Chaz Chance DPM When: as scheduled with office Meaningful Use Info Meaningful Use Diagnoses (Choose all that apply): None applicable Discharge Plan Admission Admit Date/Time: 09/22/20 15:03 Primary Reason for Your Visit: cellulitis Attending Provider: Nicanor Morales Primary Care Provider: Care Physician,No Primary Consulting Providers: Chaz Chance Instructions Patient Instructions: Diabetes: Inspecting Your Feet, Diabetes Learn Serve Portion Size, Diabetes Carbs Fats Protein, Getting Support When You Have ..., Glucose Check Steps Discharge Orders/Prescriptions Prescriptions: New metformin 500 mg Tablet 500 mg PO BIDCM 30 Days Qty: 120 RF: 0 glimepiride 4 mg Tablet 4 mg PO BREAKFAST 30 Days Qty: 30 RF: 2 cephalexin 500 mg capsule 500 mg PO .QID Qty: 40 RF: 0 fluconazole 150 mg tablet 150 mg PO Q3D Qty: 2 RF: 0 Continued multivitamin Tablet 1 tab PO DAILY RF: 0 Referrals / Follow Up: Chaz Chance DPM [STAFF PHYSICIAN] - See Referral Note (Per his office electrostatic powder coating technician) Kendall Knapp MD [STAFF PHYSICIAN] - Within 1 Week (Patient arranging appointment ) Care Physician,No Primary [Primary Care Provider] - Disposition Disposition (needs filled in before D/C Order can be placed): Home, Self Care Documented by User: Dr. Nicanor Morales DO 09/23/20 16:03 Providers Date of Admission: 09/22/20 Reason For Visit: CELLULITIS, NEW ONSET DM Medications at Discharge Home Medications multivitamin 1 tab PO DAILY 09/22/20 cephalexin 500 mg PO .QID #40 cap 09/23/20 fluconazole 150 mg PO Q3D #2 tab 09/23/20 glimepiride 4 mg PO BREAKFAST 30 Days #30 tab 09/23/20 metformin 500 mg PO BIDCM 30 Days #120 tab 09/23/20 ABG / Lab / Microbiology Data Result Diagrams: 09/23/20 05:40 09/23/20 05:40 Discharge Plan Admission Admit Date/Time: 09/22/20 15:03 Primary Reason for Your Visit: cellulitis Attending Provider: Nicanor Morales Primary Care Provider: Care Physician,No Primary Consulting Providers: Chaz Chance Instructions Patient Instructions: Diabetes: Inspecting Your Feet, Diabetes Learn Serve Portion Size, Diabetes Carbs Fats Protein, Getting Support When You Have ..., Glucose Check Steps Discharge Orders/Prescriptions Prescriptions: New metformin 500 mg Tablet 500 mg PO BIDCM 30 Days Qty: 120 RF: 0 glimepiride 4 mg Tablet 4 mg PO BREAKFAST 30 Days Qty: 30 RF: 2 cephalexin 500 mg capsule 500 mg PO .QID Qty: 40 RF: 0 fluconazole 150 mg tablet 150 mg PO Q3D Qty: 2 RF: 0 Continued multivitamin Tablet 1 tab PO DAILY RF: 0 Referrals / Follow Up: Chaz Chance DPM [STAFF PHYSICIAN] - See Referral Note (Per his office electrostatic powder coating technician) Kendall Knapp MD [STAFF PHYSICIAN] - Within 1 Week (Patient arranging appointment ) Care Physician,No Primary [Primary Care Provider] - Disposition Disposition (needs filled in before D/C Order can be placed): Home, Self Care Charges/Coding Addendum Addendum: Patient was seen and examined today independently of Shayna Tam, the redness over her right lower leg appear to be improved today and I talked with podiatry about her right great toe wound, podiatry stated that she could follow-up with them in the office concerning this. I feel the patient stable for discharge at this time, she will need follow-up due to her type 2 diabetes also. On examination she appeared in good health and spirits, she does not appear to be in any distress. Vital signs as documented. Skin warm and dry and without overt rashes. Neck without JVD, thyroid appears normal, trachea is midline, neck is supple. Lungs clear, normal air movement was noted. Heart exam notable for regular rhythm, normal sounds and absence of murmurs, rubs or gallops. Abdomen unremarkable and without evidence of organomegaly, masses, or abdominal aortic enlargement, bowel sounds are present in all 4 quadrants, no abdominal tenderness was noted. Extremities-severe edema of the right lower leg was noted to be present, there was a reddened rash over the majority of the right lower leg, no cyanosis was noted, no clubbing was noted. Patient's right great toe was wrapped with surgical dressing this was not removed for examination of the area Neuro: Cranial nerves II through XII are grossly intact, no focal motor deficits were noted, sensation to light touch and pinprick is intact, motor exam 5/5 throughout. Psych: Patient is alert and oriented x3, she does not appear anxious or depressed, she does not appear agitated. Patient appears stable for discharge at this time, I have reviewed Mindi Tam's discharge summary including her medical assessment and plan of care and endorse it. Visit Charges OBSV E&M: [id number] Observation care discharge
[2020-09-23 15:45] LABS: Bedside Glucose 140 mg/dL (70-110)
[2020-09-23 16:41] VITALS: BP 146/70; PULSE 86; RESP 18; TEMP 37.2; O2SAT 100
== END 2020-09-23 16:48 | disposition home or self-care (01) ==
LOC: ED 14:30 → MS3 15:22
PROVIDERS: Nurse Practitioner Family; Podiatrist; Admitting Provider Internal Medicine; Emergency Provider Emergency Medicine; Visit Provider Internal Medicine
DX: L03.115 Cellulitis of right lower limb (principal); E11.42 Type 2 diabetes mellitus with diabetic polyneuropathy; E11.621 Type 2 diabetes mellitus with foot ulcer; L97.512 Non-pressure chronic ulcer of other part of right foot with fat layer exposed; E11.65 Type 2 diabetes mellitus with hyperglycemia; E87.1 Hypo-osmolality and hyponatremia
CPT/HCPCS: 36415; 73590; 73630; 80048; 82962; 83605; 85025; 87070; 87075; 87077; 87186; 87205; 87640; 93923; 93971; 96365; 96366; 96367; 96375; 96376; 97802; 99218; 99282; J7030; J7040; J7050; A4216; G0378; J2405

== ENCOUNTER → 2020-10-06 12:20 | Outpatient (CLI) | payer MEDICAID, SELFPAY ==
[2020-10-06 15:25] LABS: Absolute Lymphocyte Count 2.21 X10^3/uL (0.83-4.51); Absolute Neutrophil Count 2.8 X10^3/uL (2.0-7.7); Basophil# 0.02 X10^3/uL; Basophil% 0.4 % (0-1); Eosinophil# 0.04 X10^3/uL; Eosinophils% 0.7 % (0-5); Hematocrit 38.2 % (37-47); Hemoglobin 11.8 g/dL (12.0-15.0); Lymphocyte # 2.21 X10^3/ul (0.83-4.51); Lymphocyte % 40.3 % (19-41); Mean Corp Hgb Conc 30.9 g/dL (32-36); Mean Corpuscular Hgb 28.3 pg (27.0-32.0); Mean Corpuscular Volume 91.6 fL (81-99); Mean Platelet Vol. 8.7 fl (6.2-12.0); Monocyte# 0.42 X10^3/uL; Monocyte% 7.7 % (0-10); NRBC Flagged by Analyzer 0 % (0-5); Neutrophil # 2.79 X10^3/uL (2.7-7.7); Neutrophil % 50.7 % (47-70); Platelet Count 487 K/mm3 (150-450); RBC Distribution Width CV 13.4 % (11.6-14.6); RBC Distribution Width SD 45.5 fl (35.1-43.9); Red Blood Count 4.17 M/mm3 (4.2-5.4); White Blood Count 5.5 K/mm3 (4.4-11.0)
[2020-10-06 15:52] LABS: ALB/GLOB Ratio 0.8 RATIO (0.9-2.4); AST(SGOT) 12 U/L (15-37); Alanine Aminotransfer ALT/SGPT 20 U/L (13-56); Albumin, Serum 3.3 g/dL (3.2-5.0); Alkaline Phosphatase 72 U/L (45-117); Anion Gap 3 (5-15); BUN 19 mg/dL (7-18); BUN/Creat Ratio 38.2 RATIO (10-20); Calcium,Total 9.3 mg/dL (8.5-10.1); Chloride 105 mmol/L (98-107); EST Glomerular Filtration Rate 137 mL/min (>60); Est Glom Filt Rate - Afr Amer 166 mL/min (>60); Globulin 4.4 g/dL (2.2-4.2); Glucose 83 mg/dL (74-106); Protein, Total 7.7 g/dL (6.4-8.2); Sodium Level 137 mmol/L (136-145)
== END ==
LOC: LAB 12:22 → MTLAB 12:23
PROVIDERS: Referring Provider Podiatrist; Visit Provider Podiatrist
DX: L03.115 Cellulitis of right lower limb (principal)
CPT/HCPCS: 36415; 80053; 85025

== ENCOUNTER → 2020-12-19 10:52 | Outpatient (CLI) | payer MEDICAID, SELFPAY ==
[2020-12-19 12:11] LABS: Vitamin D,25 Hydroxy 27.8 ng/mL
[2020-12-19 12:12] LABS: Cholesterol 159 mg/dL (200); High Density Lipoprotein 58 mg/dL; Triglycerides 59 mg/dL; Very Low Density Lipoprotein 12 mg/dL (5-40)
[2020-12-19 12:34] LABS: Microalbumin,Random Urine 19.8 mg/L (NO RANGE EST.); Microalbumin:Creatinine Ratio 10.6 mg/g CRE (<30 mg/g CRE)
== END ==
PROVIDERS: Referring Provider Nurse Practitioner Family; Visit Provider Nurse Practitioner Family
DX: E11.9 Type 2 diabetes mellitus without complications (principal)
CPT/HCPCS: 36415; 80061; 82043; 82306; 82570

== ENCOUNTER 2021-04-12 14:45 | Outpatient (RCR) | payer MEDICAID, SELFPAY ==
[2021-04-05 10:34] VITALS: BP 149/70; PULSE 100; RESP 18; TEMP 36.6; BMI 36.8
--- NOTE | 2021-04-05 13:46 | PN.PCM_ITS ---
History of Present Illness Date of Service: 04/05/21 Chief Complaint: Ulcer right great toe History of Wound: This 55-year-old female that has diabetes presents for evaluation of right great toe ulcer that has an onset about 1 year ago. She was previously admitted to the hospital for cellulitis and the ulcer was identified which she was not particularly aware of at that time. Her hemoglobin A1c level was over 10 and is now 5.1%. 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 She is also trying to lose weight and focuses on protein intake in her diet. [facility] and was giving thought to application of total contact cast or surgical intervention. He change the dressing with Natacha. She denies current redness, swelling or odor. She wears a surgical shoe with offloading felt liners to take pressure off of the ulcer site. She is with her spouse. Progress of Wound: Stable Objective Data Objective Data Vital Signs: Vital Signs Temp Pulse Resp BP 97.9 F 100 18 149/70 H 04/05/21 10:34 04/05/21 10:34 04/05/21 10:34 04/05/21 10:34 Weight: 106.594 kg Body Mass Index (BMI) 36.8 Physical Exam Const alert and oriented x3 General Appearance: cooperative HEENT normocephalic Extremity Extremity Narrative: No calf tenderness Diminished pulses Muscle wasting noted Flatfoot structure noted. Reduced loaded first metatarsophalangeal joint range of motion No bogginess or fluctuance on palpation General Extremity: edema and no tenderness to palpation of joints or extremities; Negative for cyanosis Skin Skin Narrative: no purulence, no streaking, no odor, no infection Skin discontinuity to plantar hallux with granular base and no deep tissue exposure noted. There is peripheral callus. General Skin Exam: Negative for erythema Neuro Neuro Narrative: lack of normal epicritic sensation via light touch is consistent with neuropathy status Psych cooperative and affect normal Debridement Note Debridement Note Wound debrided: Plantar right hallux Wound Grade/Stage: 1 Type of Debridement: Excisional debridement Anesthesia Used: 4% Lidocaine Solution Depth: in the subcutaneous layer Percentage of wound debrided: 100 Instrument Used: #15 blade Tissue Removed: fibrous, devitalized subcutaneous, biofilm, slough Severity: Fat Layer Exposed Amount of bleeding with debridement: Mild Bleeding Controlled with: Pressure Patient tolerated procedure: Patient tolerated procedure well Post-Debridement Measurements and Additional Note: Post-Debridement Measurements/Treatment WC - Nurse 1 - General Ulcer Assessment Start: 04/05/21 10:28 Freq: Status: Active Protocol: MANN Activity Type Activity Date Activity User E-Sign Co-Sign Detail Recorded Client Recorded Date Recorded By Document 04/05/21 10:34 ROSA [id number] 04/05/21 10:43 RB 04/05/21 10:34 HARRISON - Today's Visit Information Type of service Initial Visit Arrival Mode Ambulatory Transfer Assistance None Patient Identification Verified (Name & Yes ) Patient Requires Transmission-Based No Precautions Finger Stick Blood Sugar(mg/dl) (if 95 indicated): Blood Sugar Stated by Patient Height and Weight Height 5 ft 7 in Weight 106.594 kg Weight in Pounds 235.0 lbs Body Mass Index (BMI) 36.8 BMI Classification Obese BSA - Anisa 2.17 Vital Signs Temperature (97.8 F-99.1 F) 97.9 F Temperature Source Temporal Pulse Rate (60-100) 100 Pulse Location Monitor Respiratory Rate (12-18) 18 Respiratory rate source Observation Blood Pressure (90/60-120/80) 149/70 H Blood Pressure Mean (mm Hg) 96 Source Monitor Position Semi-Fowlers Blood Pressure Location Left Arm History Since Last Visit- (Skip if this is Patient's initial visit) Have you changed medications since your No last visit? Any new allergies or adverse reactions No Had a fall/change in ADL's that may No increase risk of falls Signs or symptoms of abuse and/or No neglect since last visit Have you been in the hospital since your No last visit? Has dressing in place as prescribed Yes Has compression in place as prescribed No Has offloadiing in place as prescribed No Experienced any changes in pain level or No management Pain Scale: 0-10 Numeric Is Patient Pain Free? Yes Culture/Mu-Ism/[place] Cultural/Mu-Ism Needs that may affect No Treatment Plan Would you allow our hospital industrial refrigeration mechanic to No meet you for the purpose of spiritual/ emotional support? Filleter to contact place of amish No HARRISON - Nurse 1 - General Ulcer Measurement Start: 04/05/21 10:28 Freq: Status: Active Protocol: Activity Type Activity Date Activity User E-Sign Co-Sign Detail Recorded Client Recorded Date Recorded By Document 04/05/21 10:34 RB [id number] 04/05/21 10:43 RB 04/05/21 10:34 Wound Center Nurse 1 1. R Hallux -Combined with other wound No -Current Size (cm) - Length 0.8 -Current Size (cm) - Width 0.5 -Current Size (cm) - Depth 0.2 -Total Square Cm 0.40 -Photo Taken Yes -Tunneling No -Undermining/Tunneling No -Circular Undermining No -Exudate Amt Medium -Exudate Type Serosanguineous -Wound Margin Thickened -Granulation Amt Medium (34-66%) -Granulation Quality [place],Red -Slough/Fibrin Yes -Necrosis Amt Small (1-33%) -Necrotic Tissue Type Adherent Slough -Structure Exposed N/A -Texture (Isela-wound Skin Appearance) Callus -Moisture (Isela-wound Skin Appearance) Assessed -Color (Isela-wound Skin Appearance) Assessed -Temperature (Isela-wound Skin No Abnormality Appearance) (Pt Warm) -Tenderness on Palpation (Isela-wound No Skin Appearance) -Ulcer Cleansing Wound Cleanser -Foul Odor after Cleansing No -Anesthetic Used 5% Lidocaine Gel Lower Limb Edema Present Yes Right Calf (cm) 44.5 Right Ankle (cm) 28.5 Left Calf (cm) 43 Left Ankle (cm) 28 WC - Nurse 2 - General Ulcer CM Notes Start: 04/05/21 10:28 Freq: Status: Active Protocol: Activity Type Activity Date Activity User E-Sign Co-Sign Detail Recorded Client Recorded Date Recorded By Document 04/05/21 10:55 [id number] 04/05/21 11:11 04/05/21 10:55 Wound Center Nurse 2 1. R Hallux -Time 10:56 -Correct Patient Yes -Correct Side, Site, Position Yes -Correct Procedure Yes -Procedure Performed Yes -Type of Procedure Debridement -Clinical Debridement Subcutaneous -Tissue Removed Subcutaneous -Post Debridement (cm) - Length 0.8 -Post Debridement (cm) - Width 0.6 -Post Debridement (cm) - Depth 0.2 -Total Square (Post) (cm) 0.48 -Area of Debridement (cm) - Length 0.8 -Area of Debridement (cm) - Width 0.6 -Total Square (Area) (cm) 0.48 -Tunneling No -Undermining/Tunneling No -Circular Undermining No -Wound/Ulcer Outcome Not Healed -Ulcer Cleansing Rinsed/ Irrigated with Saline -Foul Odor after Cleansing No -Bioengineered Tissue No -Bleeding Controlled with Pressure -Offloading Yes -Type of Offloading Surgical Shoe -Treatment Response Procedure Tolerated Well -Debridement - Subq, 1st 20sq cm Yes Pain Scale: 0-10 Numeric Is Patient Pain Free? Yes Assessment/Plan Assessment/Plan (1) Diabetes mellitus with diabetic polyneuropathy: CODE(S): E11.42 - Type 2 diabetes mellitus with diabetic polyneuropathy (2) Non-pressure chronic ulcer of other part of right foot with fat layer exposed: CODE(S): L97.512 - Non-pressure chronic ulcer of other part of right foot with fat layer exposed (3) Hallux limitus of right foot: CODE(S): M20.5X1 - Other deformities of toe(s) (acquired), right foot PLAN: I reviewed and discussed her case today. Debridement was performed today as noted in the clinical panel to the ulcer site. The following work up and care recommendations were made: Dressing: Change daily with Natacha Wash: Antibacterial soap and water Offload: Recommend application of a total contact cast. She would like to proceed forward with this next week. Additional offloading Plastizote liner was added to her surgical shoe. To walk on her heel. Vascular: Recent noninvasive vascular studies were reviewed with triphasic waveforms and adequate perfusion Edema: Venous Doppler was reviewed and she does not have incompetent veins. To wear Tubigrip. To perform hourly muscular contraction and elevation to help reduce edema. Infection: She is reassured no local signs of infection are noted. Pain: She is not in pain at this time. Host factors: She has diabetes and this may be contributing to some of the delayed healing. To continue to work with fashion artist and primary care physician to continue control hemoglobin A1c which is now reduced to 5.1%. I recommend nutritional supplementation. Ke samples were provided. I advised her on adequate protein intake and she will complete a food log to see if she is within the recommended range. We also discussed other offloading options such as surgical offloading with curative procedure Miles arthroplasty. She would like to try other conservative treatment options prior to proceeding forward with this. I answered all the patient's questions. To return to the wound healing center in 1 week or call sooner if the patient has any questions or concerns. Note: Caravan speech recognition hardwood floor installer software was used to create portions of this document. Sound-alike and misspelled words, as well as other hardwood floor installer errors may be contained in the documentation. The medical decision making level is moderate. There is noted moderate risk of morbidity after considering this treatment plan and diagnostic data. Considerations were given to prescription management, decisions regarding surgical options, or social determinants of health. The problems addressed require a moderate decision making level which includes one or more chronic illnesses (w/ exacerbation, progression, or side effects), two or more stable chronic illnesses, one undiagnosed new problem w/ uncertain prognosis, one acute illness with systemic symptoms, or one acute complicated injury.
[2021-04-12 14:51] VITALS: BP 163/58; PULSE 98; RESP 16; TEMP 36.2; BMI 36.8
--- NOTE | 2021-04-12 15:48 | PCM.WC.PN ---
History of Present Illness Date of Service: 04/12/21 Chief Complaint: Ulcer right great toe History of Wound: This 55-year-old female that has diabetes presents for evaluation of right great toe ulcer that has an onset about 1 year ago. Her hemoglobin A1c level was over 10 and is now 5.1%. She is working with an human services case manager and her primary care physician and no longer requires insulin for diabetes management. She changed the dressing with Natacha. She denies current redness, swelling or odor. She is with her spouse. She is ready for total contact cast application today. Progress of Wound: Stable Objective Data Objective Data Vital Signs: Vital Signs Temp Pulse Resp BP 97.2 F L 98 16 163/58 H 04/12/21 14:51 04/12/21 14:51 04/12/21 14:51 04/12/21 14:51 Weight: 106.594 kg Body Mass Index (BMI) 36.8 Physical Exam Const alert and oriented x3 General Appearance: cooperative HEENT normocephalic Extremity Extremity Narrative: No calf tenderness Diminished pulses Muscle wasting noted Flatfoot structure noted. Reduced loaded first metatarsophalangeal joint range of motion No bogginess or fluctuance on palpation General Extremity: edema and no tenderness to palpation of joints or extremities; Negative for cyanosis Skin Skin Narrative: no purulence, no streaking, no odor, no infection Skin discontinuity to plantar hallux with granular base and no deep tissue exposure noted. There is peripheral callus. General Skin Exam: Negative for erythema Neuro Neuro Narrative: lack of normal epicritic sensation via light touch is consistent with neuropathy status Psych cooperative and affect normal Debridement Note Debridement Note Wound debrided: plantar right hallux Wound Grade/Stage: 1 Type of Debridement: Excisional debridement Anesthesia Used: 4% Lidocaine Solution Depth: in the subcutaneous layer Percentage of wound debrided: 100 Instrument Used: #15 blade Tissue Removed: fibrous, devitalized subcutaneous, biofilm, slough Severity: Fat Layer Exposed Amount of bleeding with debridement: Mild Bleeding Controlled with: Pressure Patient tolerated procedure: Patient tolerated procedure well Post-Debridement Measurements and Additional Note: Post-Debridement Measurements/Treatment WC - Nurse 1 - General Ulcer Assessment Start: 04/05/21 10:28 Freq: Status: Active Protocol: MANN Activity Type Activity Date Activity User E-Sign Co-Sign Detail Recorded Client Recorded Date Recorded By Document 04/05/21 10:34 RB [id number] 04/05/21 10:43 RB Document 04/12/21 14:51 [id number] 04/12/21 14:56 JF 04/05/21 04/12/21 10:34 14:51 WC - Today's Visit Information Type of service Initial Visit Follow-up Visit (Physician/WAX [employer]ALL MOLDER ) Arrival Mode Ambulatory Ambulatory Transfer Assistance None Patient Identification Verified (Name & Yes Yes ) Patient Requires Transmission-Based No No Precautions Finger Stick Blood Sugar(mg/dl) (if 95 109 indicated): Blood Sugar Stated by Stated by Patient Patient Height and Weight Height 5 ft 7 in Weight 106.594 kg Weight in Pounds 235.0 lbs Body Mass Index (BMI) 36.8 36.8 BMI Classification Obese Obese BSA - Anisa 2.17 Vital Signs Temperature (97.8 F-99.1 F) 97.9 F 97.2 F L Temperature Source Temporal Temporal Pulse Rate (60-100) 100 98 Pulse Location Monitor Monitor Respiratory Rate (12-18) 18 16 Respiratory rate source Observation Observation Blood Pressure (90/60-120/80) 149/70 H 163/58 H Blood Pressure Mean (mm Hg) 96 93 Source Monitor Monitor Position Semi-Fowlers Sitting Blood Pressure Location Left Arm Left Forearm History Since Last Visit- (Skip if this is Patient's initial visit) Have you changed medications since your No No last visit? Any new allergies or adverse reactions No No Had a fall/change in ADL's that may No No increase risk of falls Signs or symptoms of abuse and/or No No neglect since last visit Have you been in the hospital since your No No last visit? Has dressing in place as prescribed Yes Yes Has compression in place as prescribed No Yes Has offloadiing in place as prescribed No Yes Experienced any changes in pain level or No No management Left Footwear Regular Shoe Right Footwear Surgical Shoe with pressure relief insole Pain Scale: 0-10 Numeric Is Patient Pain Free? Yes Yes Culture/Mormon/University Relations Recruiter Cultural/Mormon Needs that may affect No Treatment Plan Would you allow our hospital wire basket maker to No meet you for the purpose of spiritual/ emotional support? University Relations Recruiter to contact place of lutheran No WC - Nurse 1 - General Ulcer Measurement Start: 04/05/21 10:28 Freq: Status: Active Protocol: Activity Type Activity Date Activity User E-Sign Co-Sign Detail Recorded Client Recorded Date Recorded By Document 04/05/21 10:34 RB [id number] 04/05/21 10:43 RB Document 04/12/21 14:51 [id number] 04/12/21 14:56 04/05/21 04/12/21 10:34 14:51 Wound Center Nurse 1 1. R Hallux -Combined with other wound No No -Current Size (cm) - Length 0.8 0.9 -Current Size (cm) - Width 0.5 0.5 -Current Size (cm) - Depth 0.2 0.3 -Total Square Cm 0.40 0.45 -Photo Taken Yes No -Epithelialization Small 1-33% -Tunneling No No -Undermining/Tunneling No No -Circular Undermining No No -Exudate Amt Medium Small -Exudate Type Serosanguineous Serosanguineous -Wound Margin Thickened Flat & Intact -Granulation Amt Medium (34-66%) Medium (34-66%) -Granulation Quality [place],Red Red -Slough/Fibrin Yes Yes -Necrosis Amt Small (1-33%) Small (1-33%) -Necrotic Tissue Type Adherent Slough Adherent Slough -Structure Exposed N/A N/A -Texture (Isela-wound Skin Appearance) Callus Assessed -Moisture (Isela-wound Skin Appearance) Assessed No Abnormality, Assessed -Color (Isela-wound Skin Appearance) Assessed Assessed -Temperature (Isela-wound Skin No Abnormality No Abnormality Appearance) (Pt Warm) (Pt Warm) -Tenderness on Palpation (Isela-wound No Yes Skin Appearance) -Ulcer Cleansing Wound Cleanser Rinsed/ Irrigated with Saline -Foul Odor after Cleansing No No -Anesthetic Used 5% Lidocaine 5% Lidocaine Gel Gel Lower Limb Edema Present Yes NA Right Calf (cm) 44.5 Right Ankle (cm) 28.5 Left Calf (cm) 43 Left Ankle (cm) 28 WC - Nurse 2 - General Ulcer CM Notes Start: 04/05/21 10:28 Freq: Status: Active Protocol: Activity Type Activity Date Activity User E-Sign Co-Sign Detail Recorded Client Recorded Date Recorded By Document 04/05/21 10:55 [id number] 04/05/21 11:11 Document 04/12/21 15:12 [id number] 04/12/21 15:13 04/05/21 04/12/21 10:55 15:12 Wound Center Nurse 2 1. R Hallux -Time 10:56 15:13 -Correct Patient Yes Yes -Correct Side, Site, Position Yes Yes -Correct Procedure Yes Yes -Procedure Performed Yes Yes -Type of Procedure Debridement Debridement -Clinical Debridement Subcutaneous Subcutaneous -Tissue Removed Subcutaneous Subcutaneous -Post Debridement (cm) - Length 0.8 1.0 -Post Debridement (cm) - Width 0.6 0.5 -Post Debridement (cm) - Depth 0.2 0.3 -Total Square (Post) (cm) 0.48 0.50 -Area of Debridement (cm) - Length 0.8 1.0 -Area of Debridement (cm) - Width 0.6 0.5 -Total Square (Area) (cm) 0.48 0.50 -Tunneling No No -Undermining/Tunneling No No -Circular Undermining No No -Wound/Ulcer Outcome Not Healed Not Healed -Ulcer Cleansing Rinsed/ Rinsed/ Irrigated with Irrigated with Saline Saline -Foul Odor after Cleansing No No -Bioengineered Tissue No No -Bleeding Controlled with Pressure Pressure -Offloading Yes Yes -Type of Offloading Surgical Shoe Total Contact Cast (TCC) - Right ($) -Treatment Response Procedure Procedure Tolerated Well Tolerated Well -Debridement - Subq, 1st 20sq cm Yes Yes Pain Scale: 0-10 Numeric Is Patient Pain Free? Yes Yes - Nurse 3 - General Ulcer D/C NN Start: 04/05/21 10:28 Freq: Status: Active Protocol: Activity Type Activity Date Activity User E-Sign Co-Sign Detail Recorded Client Recorded Date Recorded By Document 04/12/21 15:15 [id number] 04/12/21 15:16 04/12/21 15:15 Wound Care Nurse 3 1. R Hallux -Ulcer Cleansing Rinsed/ Irrigated with Saline -Foul Odor after Cleansing No -Primary Dressing Applied Promogran Natacha Matter -Promogran Natacha Matter 1 Pain Scale: 0-10 Numeric Is Patient Pain Free? Yes - Visit Discharge Discharge Condition Stable Ambulatory Status Ambulatory Transportation Private Auto Medication Reconcilliation completed & Yes provided to patient/care provider Clinical Summary of Care Provided Yes Assessment/Plan Assessment/Plan (1) Diabetes mellitus with diabetic polyneuropathy: CODE(S): E11.42 - Type 2 diabetes mellitus with diabetic polyneuropathy (2) Non-pressure chronic ulcer of other part of right foot with fat layer exposed: CODE(S): L97.512 - Non-pressure chronic ulcer of other part of right foot with fat layer exposed (3) Hallux limitus of right foot: CODE(S): M20.5X1 - Other deformities of toe(s) (acquired), right foot PLAN: I reviewed and discussed her case today. Debridement was performed today as noted in the clinical panel to the ulcer site. The following work up and care recommendations were made: Dressing: Natacha was applied prior to application of total contact cast Wash: Antibacterial soap and water Offload: Recommend application of a total contact cast. Verbal consent was obtained and this was applied according standard protocol in a well-padded rectus manner. She was advised to keep this clean, dry, and intact until follow-up next week. She tolerated this well. Vascular: Recent noninvasive vascular studies were reviewed with triphasic waveforms and adequate perfusion Edema: Venous Doppler was reviewed and she does not have incompetent veins. To wear Tubigrip. To perform hourly muscular contraction and elevation to help reduce edema. Infection: She is reassured no local signs of infection are noted. Pain: She is not in pain at this time. Host factors: She has diabetes and this may be contributing to some of the delayed healing. To continue to work with human services case manager and primary care physician to continue control hemoglobin A1c which is now reduced to 5.1%. I recommend nutritional supplementation. Ke samples were provided. I advised her on adequate protein intake and she will complete a food log to see if she is within the recommended range. We also discussed other offloading options such as surgical offloading with curative procedure Miles arthroplasty. She would like to try other conservative treatment options prior to proceeding forward with this. I answered all the patient's questions. To return to the wound healing center in 1 week or call sooner if the patient has any questions or concerns.
== END 2021-04-17 23:59 ==
LOC: WC 14:45
PROVIDERS: Visit Provider Podiatrist
DX: E11.621 Type 2 diabetes mellitus with foot ulcer (principal); L97.512 Non-pressure chronic ulcer of other part of right foot with fat layer exposed; E11.42 Type 2 diabetes mellitus with diabetic polyneuropathy; M20.5X1 Other deformities of toe(s) (acquired), right foot
CPT/HCPCS: 11042; 29445; 99213; G0463

== ENCOUNTER 2021-05-03 15:30 | Outpatient (RCR) | payer MEDICAID, SELFPAY ==
[2021-04-18 00:40] VITALS: BP 163/58; PULSE 98; RESP 16; TEMP 36.2; BMI 36.8
[2021-04-19 15:05] VITALS: BP 158/88; PULSE 97; RESP 16; TEMP 36.2; BMI 36.8
--- NOTE | 2021-04-19 16:05 | PCM.WC.PN ---
History of Present Illness Date of Service: 04/19/21 Chief Complaint: Ulcer right great toe History of Wound: This 55-year-old female that has diabetes presents for evaluation of right great toe ulcer that has an onset about 1 year ago. Her hemoglobin A1c level was over 10 and is now 5.1%. She is working with an cvicu rn and her primary care physician and no longer requires insulin for diabetes management. She denies current redness, swelling or odor. She is with her spouse. She kept her total contact cast clean, dry, and intact this past week. Progress of Wound: Improving Objective Data Objective Data Vital Signs: Vital Signs Temp Pulse Resp BP 97.1 F L 97 16 158/88 H 04/19/21 15:05 04/19/21 15:05 04/19/21 15:05 04/19/21 15:05 Weight: 106.594 kg Body Mass Index (BMI) 36.8 Physical Exam Const alert and oriented x3 General Appearance: cooperative HEENT normocephalic Extremity Extremity Narrative: No calf tenderness Diminished pulses Muscle wasting noted Flatfoot structure noted. Reduced loaded first metatarsophalangeal joint range of motion No bogginess or fluctuance on palpation General Extremity: edema and no tenderness to palpation of joints or extremities; Negative for cyanosis Skin Skin Narrative: no purulence, no streaking, no odor, no infection Skin discontinuity to plantar hallux with granular base and no deep tissue exposure noted. There is peripheral callus. General Skin Exam: Negative for erythema Neuro Neuro Narrative: lack of normal epicritic sensation via light touch is consistent with neuropathy status Psych cooperative and affect normal Debridement Note Debridement Note Wound debrided: Plantar right hallux Wound Grade/Stage: 1 Type of Debridement: Excisional debridement Anesthesia Used: 4% Lidocaine Solution Depth: in the subcutaneous layer Percentage of wound debrided: 100 Instrument Used: #15 blade Tissue Removed: fibrous, devitalized subcutaneous, biofilm, slough Severity: Fat Layer Exposed Amount of bleeding with debridement: Mild Bleeding Controlled with: Pressure Patient tolerated procedure: Patient tolerated procedure well Post-Debridement Measurements and Additional Note: Post-Debridement Measurements/Treatment HARRISON - Nurse 1 - General Ulcer Assessment Start: 04/19/21 15:04 Freq: Status: Active Protocol: MANN Activity Type Activity Date Activity User E-Sign Co-Sign Detail Recorded Client Recorded Date Recorded By Document 04/19/21 15:05 NONA [id number] 04/19/21 15:07 04/19/21 15:05 - Today's Visit Information Type of service Follow-up Visit (Physician/[employer] OPERATOR ) Arrival Mode Ambulatory, Wheelchair Patient Identification Verified (Name & Yes ) Patient Requires Transmission-Based No Precautions Finger Stick Blood Sugar(mg/dl) (if 124 indicated): Blood Sugar Stated by Patient Height and Weight Body Mass Index (BMI) 36.8 BMI Classification Obese Vital Signs Temperature (97.8 F-99.1 F) 97.1 F L Temperature Source Temporal Pulse Rate (60-100) 97 Pulse Location Monitor Respiratory Rate (12-18) 16 Respiratory rate source Observation Blood Pressure (90/60-120/80) 158/88 H Blood Pressure Mean (mm Hg) 111 Source Monitor Position Semi-Fowlers Blood Pressure Location Right Arm History Since Last Visit- (Skip if this is Patient's initial visit) Have you changed medications since your No last visit? Any new allergies or adverse reactions No Had a fall/change in ADL's that may No increase risk of falls Signs or symptoms of abuse and/or No neglect since last visit Have you been in the hospital since your No last visit? Has dressing in place as prescribed Yes Has compression in place as prescribed Yes Has offloadiing in place as prescribed Yes Experienced any changes in pain level or No management Left Footwear Regular Shoe Right Footwear Total Contact Cast Pain Scale: 0-10 Numeric Is Patient Pain Free? Yes - Nurse 1 - General Ulcer Measurement Start: 04/19/21 15:04 Freq: Status: Active Protocol: Activity Type Activity Date Activity User E-Sign Co-Sign Detail Recorded Client Recorded Date Recorded By Document 04/19/21 15:05 [id number] 04/19/21 15:07 NONA 04/19/21 15:05 Wound Center Nurse 1 1. R Hallux -Combined with other wound No -Current Size (cm) - Length 0.6 -Current Size (cm) - Width 0.4 -Current Size (cm) - Depth 0.1 -Total Square Cm 0.24 -Photo Taken No -Epithelialization Medium 34-66% -Tunneling No -Undermining/Tunneling No -Circular Undermining No -Exudate Amt Small -Exudate Type Serosanguineous -Wound Margin Flat & Intact -Granulation Amt Large (67-100%) -Granulation Quality Red -Slough/Fibrin Yes -Necrosis Amt Small (1-33%) -Necrotic Tissue Type Adherent Slough -Structure Exposed N/A -Texture (Isela-wound Skin Appearance) Assessed,Callus -Moisture (Isela-wound Skin Appearance) Assessed,Dry/ Scaly -Color (Isela-wound Skin Appearance) Assessed -Temperature (Isela-wound Skin No Abnormality Appearance) (Pt Warm) -Tenderness on Palpation (Isela-wound No Skin Appearance) -Ulcer Cleansing Wound Cleanser -Foul Odor after Cleansing No -Anesthetic Used 5% Lidocaine Gel Lower Limb Edema Present Yes Right Calf (cm) 44.9 Right Ankle (cm) 27 WC - Nurse 2 - General Ulcer CM Notes Start: 04/19/21 15:04 Freq: Status: Active Protocol: Activity Type Activity Date Activity User E-Sign Co-Sign Detail Recorded Client Recorded Date Recorded By Document 04/19/21 15:12 NONA [id number] 04/19/21 15:13 NONA 04/19/21 15:12 Wound Center Nurse 2 1. R Hallux -Time 15:12 -Correct Patient Yes -Correct Side, Site, Position Yes -Correct Procedure Yes -Procedure Performed Yes -Type of Procedure Debridement -Clinical Debridement Subcutaneous -Tissue Removed Subcutaneous -Post Debridement (cm) - Length 0.6 -Post Debridement (cm) - Width 0.5 -Post Debridement (cm) - Depth 0.1 -Total Square (Post) (cm) 0.30 -Area of Debridement (cm) - Length 0.6 -Area of Debridement (cm) - Width 0.5 -Total Square (Area) (cm) 0.30 -Tunneling No -Undermining/Tunneling No -Circular Undermining No -Wound/Ulcer Outcome Not Healed -Ulcer Cleansing Rinsed/ Irrigated with Saline -Foul Odor after Cleansing No -Bioengineered Tissue No -Bleeding Controlled with Pressure -Offloading Yes -Type of Offloading Total Contact Cast (TCC) - Right ($) -Treatment Response Procedure Tolerated Well -Debridement - Subq, 1st 20sq cm Yes Pain Scale: 0-10 Numeric Is Patient Pain Free? Yes - Nurse 3 - General Ulcer D/C NN Start: 04/19/21 15:04 Freq: Status: Active Protocol: Activity Type Activity Date Activity User E-Sign Co-Sign Detail Recorded Client Recorded Date Recorded By Document 04/19/21 15:18 [id number] 04/19/21 15:20 RB 04/19/21 15:18 Wound Care Nurse 3 1. R Hallux -Primary Dressing Applied Mepilex Border, Promogran Natacha Matter -Other Dressing primary layer of TCC applied -Mepilex Border 1 -Promogran Natacha Matter 1 Treatment Response Procedure Tolerated Well Pain Scale: 0-10 Numeric Is Patient Pain Free? Yes WC - Visit Discharge Discharge Condition Stable Ambulatory Status Wheelchair Transportation Private Auto Medication Reconcilliation completed & No provided to patient/care provider Clinical Summary of Care Provided Yes Assessment/Plan Assessment/Plan (1) Diabetes mellitus with diabetic polyneuropathy: CODE(S): E11.42 - Type 2 diabetes mellitus with diabetic polyneuropathy (2) Non-pressure chronic ulcer of other part of right foot with fat layer exposed: CODE(S): L97.512 - Non-pressure chronic ulcer of other part of right foot with fat layer exposed (3) Hallux limitus of right foot: CODE(S): M20.5X1 - Other deformities of toe(s) (acquired), right foot PLAN: I reviewed and discussed her case today. Debridement was performed today as noted in the clinical panel to the ulcer site. The following work up and care recommendations were made: Dressing: Natacha was applied prior to application of total contact cast Wash: Antibacterial soap and water Offload: Recommend application of a total contact cast. Verbal consent was obtained and this was applied according standard protocol in a well-padded rectus manner. She was advised to keep this clean, dry, and intact until follow-up next week. She tolerated this well. Vascular: Recent noninvasive vascular studies were reviewed with triphasic waveforms and adequate perfusion Edema: Venous Doppler was reviewed and she does not have incompetent veins. To wear Tubigrip. To perform hourly muscular contraction and elevation to help reduce edema. Infection: She is reassured no local signs of infection are noted. Pain: She is not in pain at this time. Host factors: She has diabetes and this may be contributing to some of the delayed healing. To continue to work with cvicu rn and primary care physician to continue control hemoglobin A1c which is now reduced to 5.1%. I recommend nutritional supplementation. Ke samples were provided. I advised her on adequate protein intake and she will complete a food log to see if she is within the recommended range. We also discussed other offloading options such as surgical offloading with curative procedure Miles arthroplasty. She would like to try other conservative treatment options prior to proceeding forward with this. I answered all the patient's questions. To return to the wound healing center in 1 week or call sooner if the patient has any questions or concerns. Note: [employer] speech recognition tag machine operator software was used to create portions of this document. Sound-alike and misspelled words, as well as other tag machine operator errors may be contained in the documentation.
[2021-04-26 13:47] VITALS: BP 162/59; PULSE 72; TEMP 36.4; BMI 36.8
--- NOTE | 2021-04-26 16:02 | PN.PCM_ITS ---
History of Present Illness Date of Service: 04/26/21 Chief Complaint: Ulcer right great toe History of Wound: This 55-year-old female that has diabetes presents for evaluation of right great toe ulcer that has an onset about 1 year ago. Her hemoglobin A1c level was over 10 and is now 4.9 %. 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 She denies current redness, swelling or odor. She is with her spouse. She kept her total contact cast clean, dry, and intact this past week. Progress of Wound: Improving Objective Data Objective Data Vital Signs: Vital Signs Temp Pulse Resp BP 97.6 F L 72 16 162/59 H 04/26/21 13:47 04/26/21 13:47 04/19/21 15:05 04/26/21 13:47 Oxygen Delivery Method Room Air Weight: 106.594 kg Body Mass Index (BMI) 36.8 Physical Exam Const alert and oriented x3 General Appearance: cooperative HEENT normocephalic Extremity Extremity Narrative: No calf tenderness Diminished pulses Muscle wasting noted Flatfoot structure noted. Reduced loaded first metatarsophalangeal joint range of motion No bogginess or fluctuance on palpation General Extremity: edema and no tenderness to palpation of joints or extremities; Negative for cyanosis Skin Skin Narrative: no purulence, no streaking, no odor, no infection Skin discontinuity to plantar hallux is no longer noted and there is full epithelialization; the site is atrophic and thin General Skin Exam: Negative for erythema Neuro Neuro Narrative: lack of normal epicritic sensation via light touch is consistent with neuropathy status Psych cooperative and affect normal Debridement Note Debridement Note Post-Debridement Measurements and Additional Note: Post-Debridement Measurements/Treatment - Nurse 1 - General Ulcer Assessment Start: 04/19/21 15:04 Freq: Status: Active Protocol: [email or web address].LOWNAHUM Activity Type Activity Date Activity User E-Sign Co-Sign Detail Recorded Client Recorded Date Recorded By Document 04/19/21 15:05 [id number] 04/19/21 15:07 Document 04/26/21 13:47 [facility] [id number] 04/26/21 14:04 BMF 04/19/21 04/26/21 15:05 13:47 - Today's Visit Information Type of service Follow-up Visit Follow-up Visit (Physician/[employer] SEWING MACHINE OPERATOR (Physician/[employer] SEWING MACHINE OPERATOR ) ) Arrival Mode Ambulatory, Wheelchair Wheelchair Transfer Assistance None Accompanied by Patient Identification Verified (Name & Yes Yes ) Patient Requires Transmission-Based No Precautions Finger Stick Blood Sugar(mg/dl) (if 124 117 indicated): Blood Sugar Stated by Stated by Patient Patient Height and Weight Body Mass Index (BMI) 36.8 36.8 BMI Classification Obese Obese Vital Signs Temperature (97.8 F-99.1 F) 97.1 F L 97.6 F L Temperature Source Temporal Temporal Pulse Rate (60-100) 97 72 Pulse Location Monitor Monitor Respiratory Rate (12-18) 16 Respiratory rate source Observation Observation Oxygen Delivery Method Room Air Blood Pressure (90/60-120/80) 158/88 H 162/59 H Blood Pressure Mean (mm Hg) 111 93 Source Monitor Monitor Position Semi-Fowlers Sitting Blood Pressure Location Right Arm Left Arm History Since Last Visit- (Skip if this is Patient's initial visit) Have you changed medications since your No No last visit? Any new allergies or adverse reactions No No Had a fall/change in ADL's that may No No increase risk of falls Signs or symptoms of abuse and/or No No neglect since last visit Have you been in the hospital since your No No last visit? Has dressing in place as prescribed Yes Yes Has compression in place as prescribed Yes N/A Has offloadiing in place as prescribed Yes Yes Experienced any changes in pain level or No No management Left Footwear Regular Shoe Regular Shoe Right Footwear Total Contact Total Contact Cast Cast Pain Scale: 0-10 Numeric Is Patient Pain Free? Yes Yes - Nurse 1 - General Ulcer Measurement Start: 04/19/21 15:04 Freq: Status: Active Protocol: Activity Type Activity Date Activity User E-Sign Co-Sign Detail Recorded Client Recorded Date Recorded By Document 04/19/21 15:05 [id number] 04/19/21 15:07 Document 04/26/21 13:47 [facility] [id number] 04/26/21 14:04 [facility] 04/19/21 04/26/21 15:05 13:47 Wound Center Nurse 1 1. R Hallux -Combined with other wound No No -Current Size (cm) - Length 0.6 0.1 -Current Size (cm) - Width 0.4 0.1 -Current Size (cm) - Depth 0.1 0.1 -Total Square Cm 0.24 0.01 -Photo Taken No -Epithelialization Medium 34-66% Large 67-100% -Tunneling No No -Undermining/Tunneling No No -Circular Undermining No No -Exudate Amt Small Small -Exudate Type Serosanguineous Serous -Wound Margin Flat & Intact Distinct, Outline Attached -Granulation Amt Large (67-100%) -Granulation Quality Red -Slough/Fibrin Yes -Necrosis Amt Small (1-33%) -Necrotic Tissue Type Adherent Slough -Structure Exposed N/A -Texture (Isela-wound Skin Appearance) Assessed,Callus Assessed,Callus ,Scarring -Moisture (Isela-wound Skin Appearance) Assessed,Dry/ Assessed,Dry/ Scaly Scaly -Color (Isela-wound Skin Appearance) Assessed Assessed -Temperature (Isela-wound Skin No Abnormality No Abnormality Appearance) (Pt Warm) (Pt Warm) -Tenderness on Palpation (Isela-wound No No Skin Appearance) -Ulcer Cleansing Wound Cleanser Soap and Water -Foul Odor after Cleansing No No -Anesthetic Used 5% Lidocaine 5% Lidocaine Gel Gel Lower Limb Edema Present Yes Right Calf (cm) 44.9 Right Ankle (cm) 27 - Nurse 2 - General Ulcer CM Notes Start: 04/19/21 15:04 Freq: Status: Active Protocol: Activity Type Activity Date Activity User E-Sign Co-Sign Detail Recorded Client Recorded Date Recorded By Document 04/19/21 15:12 [id number] 04/19/21 15:13 Document 04/26/21 14:25 [id number] 04/26/21 14:59 04/19/21 04/26/21 15:12 14:25 Wound Center Nurse 2 1. R Hallux -Time 15:12 -Correct Patient Yes No -Correct Side, Site, Position Yes No -Correct Procedure Yes No -Procedure Performed Yes No -Type of Procedure Debridement -Clinical Debridement Subcutaneous -Tissue Removed Subcutaneous -Post Debridement (cm) - Length 0.6 0 -Post Debridement (cm) - Width 0.5 0 -Post Debridement (cm) - Depth 0.1 0 -Total Square (Post) (cm) 0.30 0 -Area of Debridement (cm) - Length 0.6 0 -Area of Debridement (cm) - Width 0.5 0 -Total Square (Area) (cm) 0.30 0 -Tunneling No -Undermining/Tunneling No -Circular Undermining No -Wound/Ulcer Outcome Not Healed Healed- Epithelialized -Ulcer Cleansing Rinsed/ Irrigated with Saline -Foul Odor after Cleansing No -Bioengineered Tissue No -Bleeding Controlled with Pressure -Offloading Yes -Type of Offloading Total Contact Total Contact Cast (TCC) - Cast (TCC) - Right ($) Right ($) -Treatment Response Procedure Procedure Tolerated Well Tolerated Well -Debridement - Subq, 1st 20sq cm Yes No Pain Scale: 0-10 Numeric Is Patient Pain Free? Yes Yes - Nurse 3 - General Ulcer D/C NN Start: 04/19/21 15:04 Freq: Status: Active Protocol: Activity Type Activity Date Activity User E-Sign Co-Sign Detail Recorded Client Recorded Date Recorded By Document 04/19/21 15:18 [id number] 04/19/21 15:20 RB Document 04/26/21 14:59 [id number] 04/26/21 15:00 04/19/21 04/26/21 15:18 14:59 Wound Care Nurse 3 1. R Hallux -Primary Dressing Applied Mepilex Border, Promogran Natacha Matter -Other Dressing primary layer of TCC applied -Mepilex Border 1 -Promogran Natacha Matter 1 Treatment Response Procedure Tolerated Well Pain Scale: 0-10 Numeric Is Patient Pain Free? Yes Yes - Visit Discharge Discharge Condition Stable Stable Ambulatory Status Wheelchair Ambulatory Transportation Private Auto Private Auto Medication Reconcilliation completed & No Yes provided to patient/care provider Clinical Summary of Care Provided Yes Yes Assessment/Plan Assessment/Plan (1) Diabetes mellitus with diabetic polyneuropathy: CODE(S): E11.42 - Type 2 diabetes mellitus with diabetic polyneuropathy QUALIFIERS: Diabetes mellitus fdc insulin use: without fdc use Diabetes mellitus type: type 2 Qualified Code(s): E11.42 - Type 2 diabetes mellitus with diabetic polyneuropathy (2) Non-pressure chronic ulcer of other part of right foot with fat layer exposed: CODE(S): L97.512 - Non-pressure chronic ulcer of other part of right foot with fat layer exposed (3) Hallux limitus of right foot: CODE(S): M20.5X1 - Other deformities of toe(s) (acquired), right foot (4) Localized edema: CODE(S): R60.0 - Localized edema PLAN: I reviewed and discussed her case today. The ulcer is healed and therefore debridement was not performed. Dressing: Not applied Offload: Recommend application of a total contact cast for an additional week to allow continued skin remodeling even though the ulcer site is recently healed. Verbal consent was obtained and this was applied according standard protocol in a well-padded rectus manner. She was advised to keep this clean, dry, and intact until follow-up next week. She tolerated this well. Vascular: Recent noninvasive vascular studies were reviewed with triphasic waveforms and adequate perfusion Edema: Venous Doppler was reviewed and she does not have incompetent veins. To wear Tubigrip. To perform hourly muscular contraction and elevation to help reduce edema. Infection: She is reassured no local signs of infection are noted. Pain: She is not in pain at this time. Host factors: She has diabetes and this may be contributing to some of the delayed healing. To continue to work with electrician substation and primary care physician to continue control hemoglobin A1c which is now reduced to 5.1%. I recommend nutritional supplementation. Ke samples were provided. I advised her on adequate protein intake and she will complete a food log to see if she is within the recommended range. We also discussed other offloading options such as surgical offloading with curative procedure Miles arthroplasty. She would like to try other conservative treatment options prior to proceeding forward with this. I answered all the patient's questions. To return to the wound healing center in 1 week or call sooner if the patient has any questions or concerns. Note: [employer] speech recognition snuff blender software was used to create portions of this document. Sound-alike and misspelled words, as well as other snuff blender errors may be contained in the documentation. The medical decision making level is limited based on data including the review of prior external notes, review of a prior test, or ordering a test. The medical decision making level is low. There is noted low risk of morbidity after considering this treatment plan and diagnostic data.
[2021-05-03 15:46] VITALS: BP 134/78; PULSE 98; RESP 18; TEMP 36.1; BMI 36.8
--- NOTE | 2021-05-03 16:11 | PCM.WC.PN ---
History of Present Illness Date of Service: 05/03/21 Chief Complaint: Ulcer right great toe History of Wound: This 55-year-old female that has diabetes presents for evaluation of right great toe ulcer that has an onset about 1 year ago. Her hemoglobin A1c level was over 10 and is now 4.9 %. She is working with an information security consultant and her primary care physician and no longer requires insulin for diabetes management. She denies current redness, swelling or odor. She is with her spouse. She kept her total contact cast clean, dry, and intact this past week. Progress of Wound: Healed Objective Data Objective Data Vital Signs: Vital Signs Temp Pulse Resp BP 97 F L 98 18 134/78 H 05/03/21 15:46 05/03/21 15:46 05/03/21 15:46 05/03/21 15:46 Oxygen Delivery Method Room Air Weight: 106.594 kg Body Mass Index (BMI) 36.8 Physical Exam Extremity Extremity Narrative: No calf tenderness Diminished pulses Muscle wasting noted Flatfoot structure noted. Reduced loaded first metatarsophalangeal joint range of motion No bogginess or fluctuance on palpation Skin Skin Narrative: no purulence, no streaking, no odor, no infection Skin discontinuity to plantar hallux is no longer noted and there is full epithelialization; the site is atrophic and thin Neuro Neuro Narrative: lack of normal epicritic sensation via light touch is consistent with neuropathy status Debridement Note Debridement Note Post-Debridement Measurements and Additional Note: Post-Debridement Measurements/Treatment - Nurse 1 - General Ulcer Assessment Start: 04/19/21 15:04 Freq: Status: Active Protocol: MANN Activity Type Activity Date Activity User E-Sign Co-Sign Detail Recorded Client Recorded Date Recorded By Document 04/19/21 15:05 [id number] 04/19/21 15:07 Document 04/26/21 13:47 [facility] [id number] 04/26/21 14:04 BM Document 05/03/21 15:46 ID [id number] 05/03/21 15:56 MT 04/19/21 04/26/21 05/03/21 15:05 13:47 15:46 - Today's Visit Information Type of service Follow-up Visit Follow-up Visit Follow-up Visit (Physician/QUANTITATIVE MANAGER (Physician/QUANTITATIVE MANAGER (Physician/QUANTITATIVE MANAGER ) ) ) Arrival Mode Ambulatory, Wheelchair Wheelchair Wheelchair Transfer Assistance None Accompanied by Patient Identification Verified (Name & Yes Yes Yes ) Patient Requires Transmission-Based No Precautions Finger Stick Blood Sugar(mg/dl) (if 124 117 indicated): Blood Sugar Stated by Stated by Patient Patient Height and Weight Body Mass Index (BMI) 36.8 36.8 36.8 BMI Classification Obese Obese Obese Vital Signs Temperature (97.8 F-99.1 F) 97.1 F L 97.6 F L 97 F L Temperature Source Temporal Temporal Temporal Pulse Rate (60-100) 97 72 98 Pulse Location Monitor Monitor Monitor Respiratory Rate (12-18) 16 18 Respiratory rate source Observation Observation Observation Oxygen Delivery Method Room Air Room Air Blood Pressure (90/60-120/80) 158/88 H 162/59 H 134/78 H Blood Pressure Mean (mm Hg) 111 93 96 Source Monitor Monitor Monitor Position Semi-Fowlers Sitting Sitting Blood Pressure Location Right Arm Left Arm Left Arm History Since Last Visit- (Skip if this is Patient's initial visit) Have you changed medications since your No No last visit? Any new allergies or adverse reactions No No Had a fall/change in ADL's that may No No increase risk of falls Signs or symptoms of abuse and/or No No neglect since last visit Have you been in the hospital since your No No last visit? Has dressing in place as prescribed Yes Yes Yes Has compression in place as prescribed Yes N/A Yes Has offloadiing in place as prescribed Yes Yes Yes Experienced any changes in pain level or No No Yes management Left Footwear Regular Shoe Regular Shoe Regular Shoe Right Footwear Total Contact Total Contact Regular Shoe Cast Cast Pain Scale: 0-10 Numeric Is Patient Pain Free? Yes Yes Yes - Nurse 1 - General Ulcer Measurement Start: 04/19/21 15:04 Freq: Status: Active Protocol: Activity Type Activity Date Activity User E-Sign Co-Sign Detail Recorded Client Recorded Date Recorded By Document 04/19/21 15:05 [id number] 04/19/21 15:07 Document 04/26/21 13:47 [facility] [id number] 04/26/21 14:04 BMF 04/19/21 04/26/21 15:05 13:47 Wound Center Nurse 1 1. R Hallux -Combined with other wound No No -Current Size (cm) - Length 0.6 0.1 -Current Size (cm) - Width 0.4 0.1 -Current Size (cm) - Depth 0.1 0.1 -Total Square Cm 0.24 0.01 -Photo Taken No -Epithelialization Medium 34-66% Large 67-100% -Tunneling No No -Undermining/Tunneling No No -Circular Undermining No No -Exudate Amt Small Small -Exudate Type Serosanguineous Serous -Wound Margin Flat & Intact Distinct, Outline Attached -Granulation Amt Large (67-100%) -Granulation Quality Red -Slough/Fibrin Yes -Necrosis Amt Small (1-33%) -Necrotic Tissue Type Adherent Slough -Structure Exposed N/A -Texture (Isela-wound Skin Appearance) Assessed,Callus Assessed,Callus ,Scarring -Moisture (Isela-wound Skin Appearance) Assessed,Dry/ Assessed,Dry/ Scaly Scaly -Color (Isela-wound Skin Appearance) Assessed Assessed -Temperature (Isela-wound Skin No Abnormality No Abnormality Appearance) (Pt Warm) (Pt Warm) -Tenderness on Palpation (Isela-wound No No Skin Appearance) -Ulcer Cleansing Wound Cleanser Soap and Water -Foul Odor after Cleansing No No -Anesthetic Used 5% Lidocaine 5% Lidocaine Gel Gel Lower Limb Edema Present Yes Right Calf (cm) 44.9 Right Ankle (cm) 27 - Nurse 2 - General Ulcer CM Notes Start: 04/19/21 15:04 Freq: Status: Active Protocol: Activity Type Activity Date Activity User E-Sign Co-Sign Detail Recorded Client Recorded Date Recorded By Document 04/19/21 15:12 [id number] 04/19/21 15:13 Document 04/26/21 14:25 [id number] 04/26/21 14:59 Document 05/03/21 16:06 [id number] 05/03/21 16:06 04/19/21 04/26/21 05/03/21 15:12 14:25 16:06 Wound Center Nurse 2 1. R Hallux -Time 15:12 -Correct Patient Yes No -Correct Side, Site, Position Yes No -Correct Procedure Yes No -Procedure Performed Yes No -Type of Procedure Debridement -Clinical Debridement Subcutaneous -Tissue Removed Subcutaneous -Post Debridement (cm) - Length 0.6 0 -Post Debridement (cm) - Width 0.5 0 -Post Debridement (cm) - Depth 0.1 0 -Total Square (Post) (cm) 0.30 0 -Area of Debridement (cm) - Length 0.6 0 -Area of Debridement (cm) - Width 0.5 0 -Total Square (Area) (cm) 0.30 0 -Tunneling No -Undermining/Tunneling No -Circular Undermining No -Wound/Ulcer Outcome Not Healed Healed- Epithelialized -Ulcer Cleansing Rinsed/ Irrigated with Saline -Foul Odor after Cleansing No -Bioengineered Tissue No -Bleeding Controlled with Pressure -Offloading Yes -Type of Offloading Total Contact Total Contact Cast (TCC) - Cast (TCC) - Right ($) Right ($) -Treatment Response Procedure Procedure Tolerated Well Tolerated Well -Debridement - Subq, 1st 20sq cm Yes No Pain Scale: 0-10 Numeric Is Patient Pain Free? Yes Yes Yes - Nurse 3 - General Ulcer D/C NN Start: 04/19/21 15:04 Freq: Status: Active Protocol: Activity Type Activity Date Activity User E-Sign Co-Sign Detail Recorded Client Recorded Date Recorded By Document 04/19/21 15:18 [id number] 04/19/21 15:20 RB Document 04/26/21 14:59 [id number] 04/26/21 15:00 Document 05/03/21 16:06 [id number] 05/03/21 16:07 04/19/21 04/26/21 05/03/21 15:18 14:59 16:06 Wound Care Nurse 3 1. R Hallux -Primary Dressing Applied Mepilex Border, Promogran Natacha Matter -Other Dressing primary layer of TCC applied -Mepilex Border 1 -Promogran Natacha Matter 1 Treatment Response Procedure Tolerated Well Pain Scale: 0-10 Numeric Is Patient Pain Free? Yes Yes Yes - Visit Discharge Discharge Condition Stable Stable Stable Ambulatory Status Wheelchair Ambulatory Ambulatory Transportation Private Auto Private Auto Private Auto Medication Reconcilliation completed & No Yes Yes provided to patient/care provider Clinical Summary of Care Provided Yes Yes Yes Assessment/Plan Assessment/Plan (1) Diabetes mellitus with diabetic polyneuropathy: CODE(S): E11.42 - Type 2 diabetes mellitus with diabetic polyneuropathy QUALIFIERS: Diabetes mellitus type: type 2 Diabetes mellitus shelter insulin use: without director long term care use Qualified Code(s): E11.42 - Type 2 diabetes mellitus with diabetic polyneuropathy (2) Non-pressure chronic ulcer of other part of right foot with fat layer exposed: CODE(S): L97.512 - Non-pressure chronic ulcer of other part of right foot with fat layer exposed (3) Hallux limitus of right foot: CODE(S): M20.5X1 - Other deformities of toe(s) (acquired), right foot (4) Localized edema: CODE(S): R60.0 - Localized edema PLAN: I reviewed and discussed her case today. The ulcer is healed and therefore debridement was not performed. Dressing: Not applied Offload: She completed a course of total contact cast and has done well. The ulcer is healed. I advised her on how to progress back into an athletic sneaker. She checked foot multiple times daily for new skin breakdown. I recommend she return to the foot and ankle Center to order extra-depth diabetic shoes with offloading Plastizote liners. She will call to schedule. Vascular: Recent noninvasive vascular studies were reviewed with triphasic waveforms and adequate perfusion Edema: Venous Doppler was reviewed and she does not have incompetent veins. To wear Tubigrip. To perform hourly muscular contraction and elevation to help reduce edema. Infection: She is reassured no local signs of infection are noted. Pain: She is not in pain at this time. Host factors: She has diabetes and this may be contributing to some of the delayed healing. To continue to work with information security consultant and primary care physician to continue control hemoglobin A1c which is now reduced to 5.1%. We also discussed other offloading options such as surgical offloading with curative procedure Miles arthroplasty. She would like to try other conservative treatment options prior to proceeding forward with this. This will be considered if the ulcer returns. I answered all the patient's questions. To return to the wound healing center in 1 week or call sooner if the patient has any questions or concerns. Note: [employer] speech recognition control cabinet assembler software was used to create portions of this document. Sound-alike and misspelled words, as well as other control cabinet assembler errors may be contained in the documentation. The medical decision making level is low. There is noted low risk of morbidity after considering this treatment plan and diagnostic data. The problems addressed require a low medical decision making level which includes two or more minor problems, a stable chronic illness, or an acute uncomplicated illness or injury.
== END 2021-05-03 16:28 | disposition home or self-care (01) ==
LOC: WC 15:30
PROVIDERS: Visit Provider Podiatrist
DX: E11.621 Type 2 diabetes mellitus with foot ulcer (principal); L97.512 Non-pressure chronic ulcer of other part of right foot with fat layer exposed; E11.42 Type 2 diabetes mellitus with diabetic polyneuropathy; R60.0 Localized edema; M20.5X1 Other deformities of toe(s) (acquired), right foot
CPT/HCPCS: 11042; 29445; 99212; G0463

== ENCOUNTER → 2022-02-07 | Outpatient (CLI) | payer MEDICAID, SELFPAY ==
[2022-02-07 17:22] LABS: ALB/GLOB Ratio 0.9 RATIO (0.9-2.4); AST(SGOT) 13 U/L (15-37); Alanine Aminotransfer ALT/SGPT 20 U/L (13-56); Albumin, Serum 3.6 g/dL (3.2-5.0); Alkaline Phosphatase 69 U/L (45-117); Anion Gap 8 (5-15); BUN 17 mg/dL (7-18); BUN/Creat Ratio 26.1 RATIO (10-20); Calcium,Total 9.2 mg/dL (8.5-10.1); Chloride 104 mmol/L (98-107); Cholesterol 170 mg/dL (200); Creatinine, Serum 0.65 mg/dL (0.55-1.02); EST Glomerular Filtration Rate 100 mL/min (>60); Est Glom Filt Rate - Afr Amer 121 mL/min (>60); Globulin 4.1 g/dL (2.2-4.2); Glucose 112 mg/dL (74-106); High Density Lipoprotein 59 mg/dL; Potassium 4.5 mmol/L (3.5-5.1); Protein, Total 7.7 g/dL (6.4-8.2); Sodium Level 137 mmol/L (136-145); Thyroid Stim Hormone (TSH) 1.21 uIU/mL (0.358-3.74); Triglycerides 103 mg/dL; Very Low Density Lipoprotein 21 mg/dL (5-40)
[2022-02-07 18:27] LABS: Vitamin D,25 Hydroxy 43.1 ng/mL
== END | disposition home or self-care (01) ==
LOC: BIMLAB 14:51
PROVIDERS: Referring Provider Nurse Practitioner Family; Visit Provider Nurse Practitioner Family
DX: E11.42 Type 2 diabetes mellitus with diabetic polyneuropathy (principal)
CPT/HCPCS: 36415; 80053; 80061; 82306; 84443

== ENCOUNTER → 2022-02-08 | Outpatient (CLI) | payer MEDICAID, SELFPAY ==
[2022-02-08 15:31] LABS: Microalbumin,Random Urine 73.2 mg/L (NO RANGE EST.); Microalbumin:Creatinine Ratio 42.3 mg/g CRE (<30 mg/g CRE)
== END | disposition home or self-care (01) ==
LOC: LABSPEC 13:31
PROVIDERS: Referring Provider Nurse Practitioner Family; Visit Provider Nurse Practitioner Family
DX: E11.42 Type 2 diabetes mellitus with diabetic polyneuropathy (principal)
CPT/HCPCS: 82043; 82570

== ENCOUNTER 2022-11-17 18:41 | Inpatient (IN) | payer MEDICAID, SELFPAY ==
[2022-11-17 18:42] VITALS: BP 160/81; PULSE 67; RESP 14; TEMP 36.9; O2SAT 99; BMI 45.4
--- NOTE | 2022-11-17 19:12 | RAD_ITS ---
STUDY: X-RAY - RIGHT ANKLE REASON FOR EXAM: Female, 57 years old. pain TECHNIQUE: 3 view(s) of the ankle. COMPARISON: None. FINDINGS: There is diffuse osteopenia. Comminuted fractures the distal fibular shaft with at least 9.7 mm displacement of the major distal fragment. Comminuted fracture involving the distal tibial metaphysis with intra-articular component along with associated displacement and angulation. Possible subtle fracture of the medial malleolus, area partially obscured. Suboptimally seen ankle mortise due to superimposition artifact. Question deformity of the talus, cannot exclude a fracture. Degenerative arthrosis of the visualized subtalar, talonavicular, calcaneocuboid and tarsal articulations . Soft tissue swelling of the distal calf and ankle. Plantar calcaneal spur. RAD/Ankle min 3 Views IMPRESSION: Distal tibial and fibular fractures as described with comminution and associated displacement. Deformity of the talus which may be due to prior trauma, severe degenerative disease, cannot exclude a fracture. Underlying degenerative arthrosis of the foot bones. Electronically Signed: Dana Desai MD at 19:42 EDT ,
--- NOTE | 2022-11-17 19:12 | RAD_ITS ---
STUDY: X-RAY - RIGHT FOOT CLINICAL: Female, 57 years old. injury TECHNIQUE: 3 view(s) of the foot. COMPARISON: None. FINDINGS: There is diffuse osteopenia. Comminuted fractures the distal fibular shaft with at least 9.7 mm displacement of the major distal fragment. Comminuted fracture involving the distal tibial metaphysis with intra-articular component along with associated displacement and angulation. Possible subtle fracture of the medial malleolus, area partially obscured. Suboptimally seen ankle mortise due to superimposition artifact. Question deformity of the talus, cannot exclude a fracture. Degenerative arthrosis of the visualized subtalar, talonavicular, calcaneocuboid and tarsal articulations . Soft tissue swelling of the distal calf and ankle. Plantar calcaneal spur. Mild enthesophyte at the Achilles tendon insertion site. There is degenerative arthrosis of the metatarsophalangeal joint of the hallux . Normal tibial and fibular sesamoid bones. Degenerative arthrosis of the interphalangeal joint of the great toe. Normal phalanges of the great toe. Normal second through fifth metatarsophalangeal joints. Normal interphalangeal joints and phalanges of the lesser toes. Focal severe soft tissue swelling through the first toe. Significant soft tissue swelling of the dorsum of the foot. Nonspecific soft tissue swelling at the ankle. Questionable pes planus. RAD/Foot min 3 Views IMPRESSION: Fractures involving the distal tibia and fibula as described. Deformity at the level of the talus with superimposition artifact, otherwise talus suboptimally seen, difficult to exclude a fracture although findings are likely related to severe degenerative disease. Plantar calcaneal spur with mild enthesophyte at the Achilles tendon insertion site. Otherwise unremarkable calcaneus. Possible pes planus. Electronically Signed: Dana Desai MD at 19:45 EDT ,
--- NOTE | 2022-11-17 19:23 | EDS_ITS ---
HPI <ARIN Hamilton - Last Filed: 11/17/22 20:39> History of Present Illness Chief Complaint: Lower Extremity Injury Narrative Narrative: Patient presenting today with pain to her right foot and ankle after an injury that occurred this afternoon. She reports that she was in a walking boot due to a wound that is on her first big toe that she has had chronically that is being followed by the wound care center when she got up from a chair and her foot slipped inside of the boot causing her to turn sideways and causing her to fall. She did not hit her head and denies any other injury. She reports she does have history of neuropathy in her feet bilaterally and has very little sensation but is worried that there could be a fracture. PFSH <ARIN Hamilton - Last Filed: 11/17/22 20:39> [facility] Medical History Cataract Diabetes mellitus, new onset Hypertension Home Medications multivitamin 1 tab PO DAILY SUPPLEMENT 09/22/20 [History Last Taken 09/22/20] apple cider vinegar 600 mg capsule mg PO 09/27/20 [History Last Taken Unknown] ibuprofen 125 mg-acetaminophen 250 mg tablet (Advil Dual Action) 1 tab PO Q8H PRN Pain 09/27/20 [History Last Taken Unknown] vitamin B complex (B Complex-Vitamin B12 tablet) 1 tab PO DAILY 09/27/20 [History Last Taken Unknown] cholecalciferol (vitamin D3) 1,250 mcg (50,000 unit) capsule 1,250 mcg PO QWEEK #12 caps 12/19/20 [Rx Last Taken Unknown] melatonin 3 mg tablet 3 mg PO HS PRN 04/24/21 [History Last Taken Unknown] metoprolol succinate 50 mg tablet,extended release 24 hr 50 mg PO DAILY #30 tabs 07/30/22 [Rx Last Taken Unknown] glimepiride 4 mg tablet 6 mg (1.5 x 4 mg) PO DAILY #135 tabs 08/14/22 [Rx Last Taken Unknown] metformin 500 mg tablet 1,000 mg (2 x 500 mg) PO BIDCM #120 tabs 10/08/22 [Rx Last Taken Unknown] dapagliflozin propanediol 10 mg tablet (Farxiga) 10 mg PO DAILY #30 tabs 10/29/22 [Rx Last Taken Unknown] cranberry 400 mg capsule 400 mg PO DAILY 11/15/22 [History Last Taken Unknown] doxycycline hyclate 100 mg tablet 100 mg PO BID #20 tabs 11/15/22 [Rx Last Taken Unknown] Allergy/AdvReac Type Severity Reaction Status Date / Time codeine AdvReac Nausea Verified 11/17/22 18:42 Family History Father Diabetes Surgical History H/O hernia repair Tubal ligation status Social History Smoking Status: Never smoker ROS <ARIN Hamilton - Last Filed: 11/17/22 20:39> ROS ED Constitutional Constitutional ED: Denies chills or fever(s) Cardiovascular Cardiovascular: Denies chest pain Respiratory/Chest Respiratory/Chest: Denies cough or dyspnea Musculoskeletal Musculoskeletal: Reports arthralgias Integumentary Denies Abrasions Neurologic Neurologic: Denies weakness EXAM <ARIN aHmilton - Last Filed: 11/17/22 20:39> Physical Exam Const Vital Signs: 11/17/22 18:42 11/17/22 19:33 Temperature 98.4 F Temperature Source Temporal Pulse Rate 67 Respiratory Rate 14 Respiratory Effort Normal Respiratory Pattern Normal Blood Pressure 160/81 H Blood Pressure Mean 107 Pulse Ox 99 Oxygen Delivery Method Room Air Positive well nourished, well developed and no apparent distress General Appearance ED: well developed HEENT Reports normocephalic and head/scalp atraumatic Mouth ED: Yes moist mucous membranes normal Eyes PERRL and EOMs intact bilaterally Neck full ROM and supple Chest Wall inspection of chest normal Resp normal respiratory effort and clear to auscultation bilaterally Cardio regular rate and regular rhythm GI soft to palpation, non-tender, non-distended and no masses Back/Spine normal ROM and normal to inspection Extremity normal to inspection and full ROM Extremity Narrative: 1+ pitting edema to the bilateral lower extremities, no pain to palpation to the right foot or ankle, DP pulse 2+ on the right side, good capillary refill, chronic wound to the plantar aspect of the right first toe. Neuro oriented x3, CN's II-XII intact bilaterally, moves all extremities, no focal motor deficits and no sensory deficits noted Sensorium / Orientation: awake and alert Psych mental status grossly normal and thought process normal Skin no rashes or lesions noted and no wounds <Dr. Nii Bowie MD - Last Filed: 11/17/22 21:25> Physical Exam Const Vital Signs: 11/17/22 18:42 11/17/22 19:33 Temperature 98.4 F Temperature Source Temporal Pulse Rate 67 Respiratory Rate 14 Respiratory Effort Normal Respiratory Pattern Normal Blood Pressure 160/81 H Blood Pressure Mean 107 Pulse Ox 99 Oxygen Delivery Method Room Air MDM <ARIN Hamitlon - Last Filed: 11/17/22 20:39> [facility] MDM Narrative Medical decision making narrative: Patient presenting today with pain to her right foot and ankle after injuring herself when she fell out of a chair while wearing a walking boot, her foot went sideways inside of the walking boot causing her to fall. She does have chronic diabetic neuropathy in her feet bilaterally and has very little sensation at baseline but feels that she could possibly have a fracture and wanted to have x- rays of her foot and ankle obtained. These will be obtained, she denied analgesia here. She does have a distal tibia and fibular fracture with comminution and associated displacement. Attending did speak with Dr. Kingston who will be performing surgery on her in the morning. Preop labs will be obtained as well as an EKG and chest x-ray. Lab Data Labs: Laboratory Results - last 24 hr 11/17/22 20:43 WBC 9.7 RBC 4.37 Hgb 13.2 Hct 41.0 MCV 93.8 MCH 30.2 MCHC 32.2 RDW Std Deviation 46.2 H RDW Coeff of Giuliano 13.4 Plt Count 387 MPV 8.6 Immature Gran % (Auto) 0.300 Neut % (Auto) 79.9 H Lymph % (Auto) 11.9 L Callahan % (Auto) 6.5 Eos % (Auto) 1.1 Baso % (Auto) 0.3 Absolute Neuts (auto) 7.7 Absolute Lymphs (auto) 1.15 Nucleated RBC % 0 Radiography Diagnostic Testing: Clinical Impression(s) from Imaging Studies Ankle X-Ray 11/17/22 19:12 IMPRESSION: Distal tibial and fibular fractures as described with comminution and associated displacement. Deformity of the talus which may be due to prior trauma, severe degenerative disease, cannot exclude a fracture. Underlying degenerative arthrosis of the foot bones. Electronically Signed: Dana Desai MD at 19:42 EDT Reading Location ID and State: [facility] / [place] , Service support , Foot X-Ray 11/17/22 19:12 IMPRESSION: Fractures involving the distal tibia and fibula as described. Deformity at the level of the talus with superimposition artifact, otherwise talus suboptimally seen, difficult to exclude a fracture although findings are likely related to severe degenerative disease. Plantar calcaneal spur with mild enthesophyte at the Achilles tendon insertion site. Otherwise unremarkable calcaneus. Possible pes planus. Electronically Signed: Dana Desai MD at 19:45 EDT Reading Location ID and State: [facility] / [place] , Service support , <Dr. Nii Bowie MD - Last Filed: 11/17/22 21:25> [facility] Lab Data Attestation: I reviewed the patient's lab results. Labs: Laboratory Results - last 24 hr 11/17/22 20:43 WBC 9.7 RBC 4.37 Hgb 13.2 Hct 41.0 MCV 93.8 MCH 30.2 MCHC 32.2 RDW Std Deviation 46.2 H RDW Coeff of Giuliano 13.4 Plt Count 387 MPV 8.6 Immature Gran % (Auto) 0.300 Neut % (Auto) 79.9 H Lymph % (Auto) 11.9 L Callahan % (Auto) 6.5 Eos % (Auto) 1.1 Baso % (Auto) 0.3 Absolute Neuts (auto) 7.7 Absolute Lymphs (auto) 1.15 Nucleated RBC % 0 Radiography Chest X-Ray - ED: 1 View, Read by ED Physician, No Acute Disease and No Infiltrates Diagnostic Testing: Clinical Impression(s) from Imaging Studies Ankle X-Ray 11/17/22 19:12 IMPRESSION: Distal tibial and fibular fractures as described with comminution and associated displacement. Deformity of the talus which may be due to prior trauma, severe degenerative disease, cannot exclude a fracture. Underlying degenerative arthrosis of the foot bones. Electronically Signed: Dana Desai MD at 19:42 EDT , Foot X-Ray 11/17/22 19:12 IMPRESSION: Fractures involving the distal tibia and fibula as described. Deformity at the level of the talus with superimposition artifact, otherwise talus suboptimally seen, difficult to exclude a fracture although findings are likely related to severe degenerative disease. Plantar calcaneal spur with mild enthesophyte at the Achilles tendon insertion site. Otherwise unremarkable calcaneus. Possible pes planus. Electronically Signed: Dana Desai MD at 19:45 EDT , Rhythm Strip Rhythm Strip: Sinus Rhythm Rate: 90 Ectopy: None EKG Initial EKG: Attestation: I personally reviewed and interpreted this EKG as follows: Interpretation: Sinus Rhythm, No Acute Injury Pattern and Non-Specific ST Changes (LVH/strain) Management Discussion w/another healthcare provider: Hospitalist and Maintenance Shop Welder (Thee, podiatry) Treatment and Re-Evaluation Narrative: I have personally performed a face to face assessment of the patient and have reviewed the KENDAL Note. I performed a substantive portion of the visit including all aspects of the following. My crouch findings include: History is patient was getting out of car and her ankle turned/twisted, with acute pain that is mild because she has neuropathy, but unable to put weight on her right lower extremity because of discomfort at the ankle/foot. Exam is morbid obesity, erythema lower leg, swelling at the right ankle with crepitance with movement. Limited range of motion. Neurovascularly intact distally except for sensation which is out at the toes. Medical Decison Making x-rays 3 views of my interpretation right ankle show displaced fractures of the medial and lateral malleolus, the fibula fracture is higher, three-view x-ray series of the right foot shows degenerative changes no definitive fractures, radiology interpretations reviewed discussed with podiatry with whom the patient is already established, they advised admitting the patient to medicine and prepping with n.p.o. status after midnight for likely operating room management in the morning. Other additions or changes: [None] Discharge Plan Dx/Rx/DC Orders Clinical Impression: Closed displaced bimalleolar fracture of right ankle Disposition Disposition: Acute Care Hospital [facility]
--- NOTE | 2022-11-17 20:37 | RAD_ITS ---
STUDY: X-RAY CHEST REASON FOR EXAM: Female, 57 years old. preop clearance TECHNIQUE: Single AP portable view of the chest. COMPARISON: None. FINDINGS: The lungs are clear and expanded. There is no demonstrated pleural abnormality. Normal size heart. Normal mediastinum and danni. Normal visualized pulmonary arteries. Normal visualized aortic arch and descending thoracic aorta. There are diffuse degenerative changes of the visualized thoracic spine. There is degenerative osteoarthritis of the bilateral shoulders. There is no demonstrated abnormality of the visualized soft tissue structures of the upper abdomen. RAD/Chest 1 View (Portable) IMPRESSION: No acute cardiopulmonary disease. Electronically Signed: Dana Desai MD at 21:22 EDT ,
--- NOTE | 2022-11-17 20:46 | HP.PCM.HOS_ITS ---
HPI - General General Date of Admission: 11/17/22 Date of Service: 11/17/22 Chief Complaint: Right ankle instability HPI Narrative SARAI MURILLO, is a 57 F with a significant history of hypertension; diabetes mellitus with polyneuropathy; chronic wound of the plantar side of her right great toe and chronic foot boot who presents to the emergency department with instability of her right ankle. Reportedly outpatient patient twisted her right ankle while in the boot after which her right ankle became unstable. She was about to fall but she caught herself and did not fall. Patient complains of heaviness in her right foot. She denies any mehul pain in her foot because at baseline has neuropathy in both feet. [facility] Medical History Cataract Diabetes mellitus, new onset Hypertension Home Medications multivitamin 1 tab PO DAILY SUPPLEMENT 09/22/20 [History Last Taken 11/17/22] apple cider vinegar 600 mg capsule mg PO DAILY VITAMIN 09/27/20 [History Last Taken 11/17/22] ibuprofen 125 mg-acetaminophen 250 mg tablet (Advil Dual Action) 1 tab PO Q8H PRN Pain 09/27/20 [History Last Taken Unknown] vitamin B complex (B Complex-Vitamin B12 tablet) 1 tab PO DAILY VITAMIN 09/27/20 [History Last Taken 11/17/22] cholecalciferol (vitamin D3) 1,250 mcg (50,000 unit) capsule 1,250 mcg PO QWEEK VITAMIN #12 caps 12/19/20 [Rx Last Taken 11/17/22] melatonin 3 mg tablet 10 mg PO HS PRN sleep 04/24/21 [History Last Taken 11/16/22] metoprolol succinate 50 mg tablet,extended release 24 hr 50 mg PO DAILY BP #30 tabs 07/30/22 [Rx Last Taken 11/17/22] metformin 500 mg tablet 1,000 mg (2 x 500 mg) PO BIDCM DM #120 tabs 10/08/22 [Rx Last Taken 11/17/22] dapagliflozin propanediol 10 mg tablet (Farxiga) 10 mg PO DAILY DM #30 tabs 10/29/22 [Rx Last Taken 11/17/22] cranberry 400 mg capsule 400 mg PO DAILY VITAMIN 11/15/22 [History Last Taken 11/17/22] doxycycline hyclate 100 mg tablet 100 mg PO BID INFECTION #20 tabs 11/15/22 [Rx Last Taken 11/17/22] Lactobacillus rhamnosus GG 10 billion cell capsule (Culturelle) 1 cap PO DAILY PROBIOTIC 11/17/22 [History Last Taken 11/16/22] glimepiride 4 mg tablet 4 mg PO DAILY DM 11/17/22 [History Last Taken 11/17/22] Allergy/AdvReac Type Severity Reaction Status Date / Time codeine AdvReac Nausea Verified 11/17/22 18:42 Family History Father Diabetes Surgical History H/O hernia repair Tubal ligation status Social History Smoking Status: Never smoker ROS ROS Narrative Pertinent positives and pertinent negatives as noted in HPI. All other systems were reviewed and are negative Vital Signs Vital Signs Vital Signs: 11/17/22 18:42 11/17/22 19:33 Temperature 98.4 F Temperature Source Temporal Pulse Rate 67 Respiratory Rate 14 Respiratory Effort Normal Respiratory Pattern Normal Blood Pressure 160/81 H Blood Pressure Mean 107 Pulse Ox 99 Oxygen Delivery Method Room Air Weight Weight: 131.678 kg Body Mass Index (BMI) 45.4 Physical Exam Narrative Physical exam: General: Morbidly obese middle aged female. Head: Normocephalic, atraumatic, no tenderness Eyes: Vision is grossly intact. EOMI ENT, no trauma, moist mucous membranes, no rhinorrhea Neck: Nontender, No thyromegaly. CVS: Regular rate and rhythm. S1-S2 present. No murmur, gallop or rub. Respiratory : clear to auscultation bilaterally, chest wall nontender Abdomen: Soft, nontender, nondistended, normal bowel sounds, no masses : Deferred Back: Nontender, no CVA tenderness, no midline spinal tenderness, deformities, step-offs Extremities: Erythema and increased tenderness of right hernández. Left hernández known erythematous. Ulcer with some drainage at the plantar side of right big toe. Left big toe with no ulcer Skin: Normal color, no trauma, abrasions Neuro: Alert, oriented, cranial nerves II through XII grossly intact. Psychiatry: Normal mood. Normal affect. Not depressed. Not anxious. Results Lab / Micro Data 11/17/22 20:43 11/17/22 20:43 Radiology Impression Ankle X-Ray 11/17/22 19:12 IMPRESSION: Distal tibial and fibular fractures as described with comminution and associated displacement. Deformity of the talus which may be due to prior trauma, severe degenerative disease, cannot exclude a fracture. Underlying degenerative arthrosis of the foot bones. Electronically Signed: Dana Desai MD at 19:42 EDT Reading Location ID and State: [employer] / [employer] , Service support , Foot X-Ray 11/17/22 19:12 IMPRESSION: Fractures involving the distal tibia and fibula as described. Deformity at the level of the talus with superimposition artifact, otherwise talus suboptimally seen, difficult to exclude a fracture although findings are likely related to severe degenerative disease. Plantar calcaneal spur with mild enthesophyte at the Achilles tendon insertion site. Otherwise unremarkable calcaneus. Possible pes planus. Electronically Signed: Dana Desai MD at 19:45 EDT Reading Location ID and State: [employer] / [employer] , Service support , Assessment & Plan Assessment/Plan (1) Closed displaced bimalleolar fracture of right ankle: QUALIFIERS: Encounter type: initial encounter Qualified Code(s): S82.841A - Displaced bimalleolar fracture of right lower leg, initial encounter for closed fracture (2) Hypertension: QUALIFIERS: Hypertension type: unspecified Qualified Code(s): I10 - Essential (primary) hypertension (3) Cellulitis: QUALIFIERS: Laterality: right Site of cellulitis: extremity Site of cellulitis of extremity: lower extremity Qualified Code(s): L03.115 - Cellulitis of right lower limb (4) Type 2 diabetes mellitus with foot ulcer: QUALIFIERS: Diabetes mellitus custodial insulin use: without custodial use Qualified Code(s): E11.621 - Type 2 diabetes mellitus with foot ulcer; L97.509 - Non-pressure chronic ulcer of other part of unspecified foot with unspecified severity PLAN: Plan Comminuted displaced fractures of tibia and fibula of the right. Radiologist impression of ankle x-ray with tibial and fibula comminuted fractures with displacement. Deformity of the talus, cannot exclude a fracture. Underlying degenerative arthrosis of the foot bone. Ankle x-ray was independently interpreted, agrees to radiology interpretation Emergent department doctor discussed the case with podiatry, Dr. Kingston. Plan is for possible surgery on November 18, 2022. Inpatient consult to podiatry. Foot x-ray: Is consistent with ankle x-ray. Chest x-ray reviewed showed no acute cardiopulmonary process and I agree with radiology interpretation. Morphine IV and oxycodone as needed ordered. Tylenol as needed ordered. Bowel protocol and antiemetics IV ordered. Keep n.p.o. While n.p.o. normal saline infusion ordered. Check vitamin D level. Preoperative EKG with evidence of left ventricular hypertrophy ACS NSQIP surgical risk calculator with above surgical risk for serious complications, any complications, average risk for cardiac complications. Above average risk for surgical site infection, UTI, renal failure, readmission, and sepsis. Also above average risk of .. High surgical risk secondary to a history of diabetes, hypertension and morbid Obesity. [facility] admit to [facility] on telemetry. IMAN Return of labs showed that her creatinine was 1.18. Labs showed that her creatinine on 02/07/2022 was 0.65 and on 10/06/2020 it was 0.50. Gentle IV hydration ordered. Avoid nephrotoxins. Hypertension Blood pressure is not within goal. Home blood pressure medication continued. As needed hydralazine ordered. Trend blood pressure and adjust blood pressure medications. Type II diabetes mellitus foot ulcer, and a polyneuropathy Focus on presentation stable. A1c on 11/15/2022 was 5.7. Of note her A1c on 09/27/2020 was 10.5. Hold metformin. Home dapagliflozin continued Monitor Accu-Cheks Correction scale insulin ordered. Right leg Cellulitis Home doxycycline continued DVT prophylaxis SCDs ordered. Time spent in the patient's overall evaluation,decision-making process, review of diagnostic data, adjustment of management, discussion with other providers, nursing nursing and ancillary staff involved in patient's care documentation, 75 minutes. Charges/Coding Visit Charges Inpatient E&M: 76052 Init Hosp L3
[2022-11-17 20:58] LABS: Absolute Lymphocyte Count 1.15 X10^3/uL (0.83-4.51); Absolute Neutrophil Count 7.7 X10^3/uL (2.0-7.7); Basophil# 0.03 X10^3/uL; Basophil% 0.3 % (0-1); Eosinophil# 0.11 X10^3/uL; Eosinophils% 1.1 % (0-5); Hemoglobin 13.2 g/dL (12.0-15.0); Lymphocyte # 1.15 X10^3/ul (0.83-4.51); Lymphocyte % 11.9 % (19-41); Mean Corp Hgb Conc 32.2 g/dL (32-36); Mean Corpuscular Hgb 30.2 pg (27.0-32.0); Mean Corpuscular Volume 93.8 fL (81-99); Mean Platelet Vol. 8.6 fl (6.2-12.0); Monocyte# 0.63 X10^3/uL; Monocyte% 6.5 % (0-10); NRBC Flagged by Analyzer 0 % (0-5); Neutrophil # 7.73 X10^3/uL (2.7-7.7); Neutrophil % 79.9 % (47-70); Platelet Count 387 K/mm3 (150-450); RBC Distribution Width CV 13.4 % (11.6-14.6); RBC Distribution Width SD 46.2 fl (35.1-43.9); Red Blood Count 4.37 M/mm3 (4.2-5.4); White Blood Count 9.7 K/mm3 (4.4-11.0)
[2022-11-17 21:16] LABS: Anion Gap 5 (5-15); BUN 37 mg/dL (7-18); BUN/Creat Ratio 31.4 RATIO (10-20); Calcium,Total 9.7 mg/dL (8.5-10.1); Chloride 104 mmol/L (98-107); Creatinine, Serum 1.18 mg/dL (0.55-1.02); EST Glomerular Filtration Rate 50 mL/min (>60); Est Glom Filt Rate - Afr Amer 61 mL/min (>60); Estimated Creatinine Clearance 51.15 ml/min; Glucose 140 mg/dL (74-106); Potassium 4.8 mmol/L (3.5-5.1); Sodium Level 136 mmol/L (136-145)
[2022-11-17 21:43] VITALS: BP 139/75; PULSE 84; RESP 16; TEMP 36.4; O2SAT 97
[2022-11-17 22:23] VITALS: BMI 46.3
[2022-11-17 22:25] VITALS: BP 162/78; PULSE 95; RESP 18; TEMP 36.6; O2SAT 100
[2022-11-17] MEDS: 0.9% Normal Saline (1000mL) 1,000 ML 75 ML IV (22:59)
[2022-11-17] MEDS: 0.9% Saline Lock 10 ML Syringe IV (23:00)
[2022-11-17] MEDS: oxyCODONE 5 MG Tablet PO (23:01)
[2022-11-17] MEDS: MELATONIN 10 MG TABLET PO (23:02)
[2022-11-17 23:24] LABS: Bedside Glucose 148 mg/dL (74-106)
[2022-11-18] VITALS (11 sets, daily range): BP systolic 124–167; BP diastolic 63–78; PULSE 81–91; RESP 16–18; TEMP 36.6–37.4; O2SAT 96–98; BMI 46.3
[2022-11-18 06:20] LABS: Bedside Glucose 113 mg/dL (74-106)
[2022-11-18 07:05] LABS: Absolute Lymphocyte Count 0.98 X10^3/uL (0.83-4.51); Absolute Neutrophil Count 4.6 X10^3/uL (2.0-7.7); Basophil# 0.03 X10^3/uL; Basophil% 0.5 % (0-1); Eosinophil# 0.12 X10^3/uL; Eosinophils% 1.9 % (0-5); Hematocrit 35.7 % (37-47); Hemoglobin 11.2 g/dL (12.0-15.0); Lymphocyte # 0.98 X10^3/ul (0.83-4.51); Lymphocyte % 15.4 % (19-41); Mean Corp Hgb Conc 31.4 g/dL (32-36); Mean Corpuscular Hgb 29.7 pg (27.0-32.0); Mean Corpuscular Volume 94.7 fL (81-99); Monocyte# 0.69 X10^3/uL; Monocyte% 10.8 % (0-10); NRBC Flagged by Analyzer 0 % (0-5); Neutrophil # 4.55 X10^3/uL (2.7-7.7); Neutrophil % 71.2 % (47-70); Platelet Count 340 K/mm3 (150-450); RBC Distribution Width CV 13.5 % (11.6-14.6); RBC Distribution Width SD 47.4 fl (35.1-43.9); Red Blood Count 3.77 M/mm3 (4.2-5.4); White Blood Count 6.4 K/mm3 (4.4-11.0)
--- NOTE | 2022-11-18 07:19 | PN.HOSP_ITS ---
Reason for Visit Reason for Visit: Diagnoses Type 2 diabetes mellitus with foot ulcer (11/17/22) Essential (primary) hypertension (11/17/22) Cellulitis of right lower limb (11/17/22) Non-pressure chronic ulcer of other part of unspecified foot with unspecified severity (11/17/22) Displaced bimalleolar fracture of right lower leg, initial encounter for closed fracture (11/17/22) Subjective Subjective Seen and after she returned to her room postsurgery, reports she does not feel her legs very well anyway but knows something is on her foot, feels her mouth is little dry but denies any other complaints at this time Objective Data Objective Data Vital Signs: Vital Signs Temp Pulse Resp BP Pulse Ox O2 Del Method 97.8 F 82 16 140/74 H 96 Room Air 11/18/22 03:00 11/18/22 03:00 11/18/22 03:00 11/18/22 03:00 11/18/22 03:00 11/18/22 03:00 Oxygen Delivery Method Room Air Weight: 134 kg Body Mass Index (BMI) 46.3 Intake & Output: Intake and Output for Last 24 Hours 11/16/22 11/17/22 11/18/22 23:59 23:59 23:59 Output Total 400 / 400 Balance -400 / -400 Lab / Micro Data 11/18/22 06:12 11/18/22 06:12 Labs: Laboratory Results - last 24 hr 11/17/22 20:43: WBC 9.7, RBC 4.37, Hgb 13.2, Hct 41.0, MCV 93.8, MCH 30.2, MCHC 32.2, RDW Std Deviation 46.2 H, RDW Coeff of Giuliano 13.4, Plt Count 387, MPV 8.6, Immature Gran % (Auto) 0.300, Neut % (Auto) 79.9 H, Lymph % (Auto) 11.9 L, [place] % (Auto) 6.5, Eos % (Auto) 1.1, Baso % (Auto) 0.3, Absolute Neuts (auto) 7.7, Absolute Lymphs (auto) 1.15, Nucleated RBC % 0, Sodium 136, Potassium 4.8, Chloride 104, Carbon Dioxide 27.0, Anion Gap 5, BUN 37 H, Creatinine 1.18 H, Estim Creat Clear Calc 51.15, Est GFR (MDRD) Af Amer 61, Est GFR (MDRD) Non-Af 50 L, BUN/Creatinine Ratio 31.4 H, Glucose 140 H, Calcium 9.7 11/17/22 22:55: POC Glucose 148 H 11/18/22 06:00: POC Glucose 113 H 11/18/22 06:12: WBC 6.4, RBC 3.77 L, Hgb 11.2 L, Hct 35.7 L, MCV 94.7, MCH 29.7, MCHC 31.4 L, RDW Std Deviation 47.4 H, RDW Coeff of Giuliano 13.5, Plt Count 340, MPV 9.0, Immature Gran % (Auto) 0.200, Neut % (Auto) 71.2 H, Lymph % (Auto) 15.4 L, [place] % (Auto) 10.8 H, Eos % (Auto) 1.9, Baso % (Auto) 0.5, Absolute Neuts (auto) 4.6, Absolute Lymphs (auto) 0.98, Nucleated RBC % 0 Radiography Diagnostic Testing: Radiology Impression Ankle X-Ray 11/17/22 19:12 IMPRESSION: Distal tibial and fibular fractures as described with comminution and associated displacement. Deformity of the talus which may be due to prior trauma, severe degenerative disease, cannot exclude a fracture. Underlying degenerative arthrosis of the foot bones. Electronically Signed: Dana Desai MD at 19:42 EDT Reading Location ID and State: [employer] / [employer] , Service support , Foot X-Ray 11/17/22 19:12 IMPRESSION: Fractures involving the distal tibia and fibula as described. Deformity at the level of the talus with superimposition artifact, otherwise talus suboptimally seen, difficult to exclude a fracture although findings are likely related to severe degenerative disease. Plantar calcaneal spur with mild enthesophyte at the Achilles tendon insertion site. Otherwise unremarkable calcaneus. Possible pes planus. Electronically Signed: Dana Desai MD at 19:45 EDT Reading Location ID and State: [employer] / [employer] , Service support , Chest X-Ray 11/17/22 20:37 IMPRESSION: No acute cardiopulmonary disease. Electronically Signed: Dana Desai MD at 21:22 EDT , Rhythm Strip Rhythm Strip: Sinus Rhythm Rate: 90 Ectopy: None Physical Exam Narrative General: Alert, oriented, no apparent distress HEENT: Atraumatic, normocephalic Eyes: Anicteric, normal conjunctiva, extraocular movements grossly intact Neck: Supple Respiratory: Clear to auscultation bilaterally, normal respiratory effort Cardiovascular: Regular rate and rhythm GI: Soft, nontender, nondistended Extremities: No edema Musculoskeletal: Right ankle postop Neuro: No overt focal neurological deficits Skin: No rashes appreciated Psych: Cooperative Assessment & Plan Assessment/Plan (1) Closed displaced bimalleolar fracture of right ankle: QUALIFIERS: Encounter type: initial encounter Qualified Code(s): S82.841A - Displaced bimalleolar fracture of right lower leg, initial encounter for closed fracture (2) Hypertension: QUALIFIERS: Hypertension type: unspecified Qualified Code(s): I10 - Essential (primary) hypertension (3) Cellulitis: QUALIFIERS: Laterality: right Site of cellulitis: extremity Site of cellulitis of extremity: lower extremity Qualified Code(s): L03.115 - C ellulitis of right lower limb (4) Type 2 diabetes mellitus with foot ulcer: QUALIFIERS: Diabetes mellitus intermediate insulin 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 Radiologist impression of ankle x-ray with tibial and fibula comminuted frac tures with displacement. Deformity of the talus, cannot exclude a fracture. Underlying degenerative arthrosis of the foot bone. Ankle x-ray was independently interpreted, agrees to radiology interpretation Emergent department doctor discussed the case with podiatry, Dr. Kingston. Plan is for possible surgery on November 18, 2022. Inpatient consult to podiatry. Foot x-ray: Is consistent with ankle x-ray. Chest x-ray reviewed showed no acute cardiopulmonary process and I agree with radiology interpretation. Morphine IV and oxycodone as needed ordered. Tylenol as needed ordered. Bowel protocol and antiemetics IV ordered. Keep n.p.o. While n.p.o. normal saline infusion ordered. Check vitamin D level. Preoperative EKG with evidence of left ventricular hypertrophy ACS NSQIP surgical risk calculator with above surgical risk for serious complications, any complications, average risk for cardiac complications. Above average risk for surgical site infection, UTI, renal failure, readmission, and sepsis. Also above average risk of .. High surgical risk secondary to a history of diabetes, hypertension and morbid Obesity. Will admit to [facility] [place] [place] on telemetry. -11/18: Status post surgery with Dr. Kingston today, continue pain control and supportive care #IMAN Return of labs showed that her creatinine was 1.18. Labs showed that her creatinine on 02/07/2022 was 0.65 and on 10/06/2020 it was 0.50. Gentle IV hydration ordered. Avoid nephrotoxins. -11/18: Improved, continue supportive care and avoiding nephrotoxic agents #Hypertension Blood pressure is not within goal. Home blood pressure medication continued. As needed hydralazine ordered. Trend blood pressure and adjust blood pressure medications. -11/18: Monitor BP postop and adjust medicine as indicated #Type II diabetes mellitus foot ulcer, and a polyneuropathy Focus on presentation stable. A1c on 11/15/2022 was 5.7. Of note her A1c on 09/27/2020 was 10.5. Hold metformin. Home dapagliflozin continued Monitor Accu-Cheks Correction scale insulin ordered. -11/18: Glucose 134 this a.m., will monitor as patient increases diet #Right leg Cellulitis Home doxycycline continued DVT prophylaxis SCDs ordered. Time spent in the patient's overall evaluation,decision-making process, review of diagnostic data, adjustment of management, discussion with other providers, nursing nursing and ancillary staff involved in patient's care documentation, 40 minutes. Charges/Coding Visit Charges Inpatient E&M: 35868 Subs Hosp L2
[2022-11-18 07:34] LABS: Anion Gap 6 (5-15); BUN 30 mg/dL (7-18); BUN/Creat Ratio 35.9 RATIO (10-20); Calcium,Total 8.7 mg/dL (8.5-10.1); Chloride 106 mmol/L (98-107); Creatinine, Serum 0.84 mg/dL (0.55-1.02); EST Glomerular Filtration Rate 75 mL/min (>60); Est Glom Filt Rate - Afr Amer 90 mL/min (>60); Estimated Creatinine Clearance 71.86 ml/min; Glucose 118 mg/dL (74-106); Potassium 4.3 mmol/L (3.5-5.1); Sodium Level 138 mmol/L (136-145)
[2022-11-18] MEDS: 0.9% Saline Lock 10 ML Syringe IV (08:08)
[2022-11-18] MEDS: Ondansetron 4 MG/2 ML Vial IV (08:08)
[2022-11-18] MEDS: Metoprolol(XL)Succ 50 MG Tablet PO (08:44)
[2022-11-18] MEDS: Cefazolin 3 GM in 0.9% Normal Saline (100mL Bag) 100 ML IV (09:01)
--- NOTE | 2022-11-18 09:02 | RAD_ITS ---
HISTORY: FX. TECHNIQUE: 5 spot images. COMPARISON: XR prior day. FINDINGS: OSSEOUS STRUCTURES: Complex comminuted fracture of the right ankle with external fixation placed FLUOROSCOPY TIME: 180.3 seconds RADIATION DOSE: 12.55mGy. RAD/Ankle 2 Views IMPRESSION: External fixation of right ankle fracture. Electronically Signed: Otilia Zuniga MD at 11:02 EDT ,
[2022-11-18] MEDS: Lactated Ringers 1,000 ML 15 ML IV (10:15)
[2022-11-18] MEDS: Bupivacaine Mpf 0.5% 30 ML VIAL (10:37)
--- NOTE | 2022-11-18 10:50 | PCM.CONS.GEN ---
Assessment & Plan Assessment/Plan (1) Pilon fracture of right tibia: QUALIFIERS: Encounter type: initial encounter Fracture type: closed Fracture alignment: displaced Qualified Code(s): S82.871A - Displaced pilon fracture of right tibia, initial encounter for closed fracture PLAN: Patient was examined and evaluated. All findings were discussed with the patient. All questions were answered to the patient satisfaction. Patient and her family were educated about her current situation and the need for close reduction and application of external fixator to the right lower extremity to allow the fibula and tibia to get out the length. Patient and her family was understanding of this and would like to move forward with surgical application of the external fixator. Patient currently sits as a Moses C and grade 2 pilon fracture. The goal is to get the patient's tibia as well as fibula out to length and allow the soft tissue to calm down. Definitive procedure will take place approximately 2 weeks from surgery will consist of open reduction internal fixation of the pilon fracture as well as fibula, as well as possible ankle fusion versus TTC fusion if needed. All risk and benefits were discussed with the patient and the family in great detail. Patient is understanding of all these risks. Last JACY, 09/23/2020, JACY to the right is 1.13, JACY to the left is 1.28. We will need to obtain new PVRs as soon as the patient is able. Patient is currently n.p.o. for surgical intervention today. I will continue to follow patient while in house, please reach out to Dr. Kingston with any questions or concerns Thank for the consult! (2) Closed fibular fracture: QUALIFIERS: Encounter type: initial encounter Fibula location: shaft Fracture morphology: comminuted Fracture alignment: displaced Laterality: right Qualified Code(s): S82.451A - Displaced comminuted fracture of shaft of right fibula, initial encounter for closed fracture (3) Localized edema: (4) Type 2 diabetes mellitus with foot ulcer: QUALIFIERS: Diabetes mellitus group home insulin use: without group home use Qualified Code(s): E11.621 - Type 2 diabetes mellitus with foot ulcer; L97.509 - Non-pressure chronic ulcer of other part of unspecified foot with unspecified severity PLAN: The patient's right hallux ulcer is stable with no sign of infection. We will plan on surgical prep for graft site as well as application of skin graft substitute today in the operating room. (5) Diabetes mellitus with diabetic polyneuropathy: QUALIFIERS: Diabetes mellitus type: type 2 Diabetes mellitus group home insulin use: without group home use Qualified Code(s): E11.42 - Type 2 diabetes mellitus with diabetic polyneuropathy PLAN: Patient's A1c is well controlled continue strict glycemic control and low sodium cardiac diet. HPI Consult Data Date of Consult: 11/18/22 HPI Narrative Reason for Consultation: Right lower extremity pilon fracture HPI Narrative: SARAI MURILLO, is a 57 F who presents to [facility] for admission of right lower extremity pilon fracture with fibular fracture. Patient admits she has been managing a chronic ulceration to the right big toe and has been wearing a cam boot for protective weightbearing. Patient states that she was getting up out of her chair while at home slipping while wearing the boot causing her foot to roll in under her body which ultimately led to her right lower extremity pilon fracture. Patient is a diabetic and has a controlled A1c of 5.7%. Patient was ultimately admitted secondary to her injury. Dr. Kingston from podiatry was consulted for next day application of external fixator to the right lower extremity. Patient states her pain at worst is 5 out of 10 on the pain scale and controlled with oral pain medication. Patient denies any other trauma. She denies constitutional symptoms. No other pedal complaints at this time. [facility] Medical History (Updated 11/18/22 @ 11:[address] Michael Kingston, DPDoris) Cataract Diabetes mellitus, new onset Hypertension Type 2 diabetes mellitus with foot ulcer Home Medications multivitamin 1 tab PO DAILY SUPPLEMENT 09/22/20 [History Last Taken 11/17/22] apple cider vinegar 600 mg capsule 600 mg PO DAILY VITAMIN 09/27/20 [History Last Taken 11/17/22] ibuprofen 125 mg-acetaminophen 250 mg tablet (Advil Dual Action) 1 tab PO Q8H PRN Pain 09/27/20 [History Last Taken Unknown] vitamin B complex (B Complex-Vitamin B12 tablet) 1 tab PO DAILY VITAMIN 09/27/20 [History Last Taken 11/17/22] melatonin 3 mg tablet 10 mg PO HS PRN sleep 04/24/21 [History Last Taken 11/16/22] metoprolol succinate 50 mg tablet,extended release 24 hr 50 mg PO DAILY BP #30 tabs 07/30/22 [Rx Last Taken 11/17/22] metformin 500 mg tablet 1,000 mg (2 x 500 mg) PO BIDCM DM #120 tabs 10/08/22 [Rx Last Taken 11/17/22] dapagliflozin propanediol 10 mg tablet (Farxiga) 10 mg PO DAILY DM #30 tabs 10/29/22 [Rx Last Taken 11/17/22] cranberry 400 mg capsule 400 mg PO DAILY VITAMIN 11/15/22 [History Last Taken 11/17/22] doxycycline hyclate 100 mg tablet 100 mg PO BID INFECTION #20 tabs 11/15/22 [Rx Last Taken 11/17/22] Lactobacillus rhamnosus GG 10 billion cell capsule (Culturelle) 1 cap PO DAILY PROBIOTIC 11/17/22 [History Last Taken 11/16/22] cholecalciferol (vitamin D3) 1,250 mcg (50,000 unit) capsule 1,000 unit PO DAILY VITAMIN 11/17/22 [History Last Taken 11/17/22] glimepiride 4 mg tablet 4 mg PO DAILY DM 11/17/22 [History Last Taken 11/17/22] Allergy/AdvReac Type Severity Reaction Status Date / Time codeine AdvReac Nausea Verified 11/17/22 18:42 Family History Father Diabetes Surgical History H/O hernia repair Tubal ligation status Social History Smoking Status: Never smoker Physical Exam Narrative Vascular: DP and PT pulses are faintly palpable to the right lower extremity secondary to edema. Evidence of erythema appreciated to the distal right leg which is blanchable. There is evidence of spotty ecchymosis to the distal leg of the right lower extremity. No evidence of fracture blisters. Skin temperature gradient is warm to warm from proximal ankle to distal digits. Neurological: Light touch is intact. Epicritic sensation is diminished. Patient does not respond to painful stimuli with palpation to the distal right leg. Dermatological: Blanchable erythema to the distal right leg without proximal streaking. No fracture blisters are noted. There is a full-thickness ulceration to the plantar aspect of the right hallux without erythema or sign of infection. Ulceration to the right hallux measures 0.5 x 0.4 x 0.1 cm. No evidence of probe to bone. Musculoskeletal: Muscle strength is deferred secondary to pilon fracture. There is mild palpatory tenderness appreciated to the diaphysis of the right fibula. There is mild pain on palpation to the distal tibia. Active and passive range of motion is present without pain. Evidence of loss of medial longitudinal arch. No pain with calf compression. Const alert, oriented x3 and no apparent distress Lab / Micro Data 11/18/22 06:12 11/18/22 06:12 Labs: Laboratory Results - last 24 hr 11/17/22 20:43: WBC 9.7, RBC 4.37, Hgb 13.2, Hct 41.0, MCV 93.8, MCH 30.2, MCHC 32.2, RDW Std Deviation 46.2 H, RDW Coeff of Giuliano 13.4, Plt Count 387, MPV 8.6, Immature Gran % (Auto) 0.300, Neut % (Auto) 79.9 H, Lymph % (Auto) 11.9 L, Hughes % (Auto) 6.5, Eos % (Auto) 1.1, Baso % (Auto) 0.3, Absolute Neuts (auto) 7.7, Absolute Lymphs (auto) 1.15, Nucleated RBC % 0, Sodium 136, Potassium 4.8, Chloride 104, Carbon Dioxide 27.0, Anion Gap 5, BUN 37 H, Creatinine 1.18 H, Estim Creat Clear Calc 51.15, Est GFR (MDRD) Af Amer 61, Est GFR (MDRD) Non-Af 50 L, BUN/Creatinine Ratio 31.4 H, Glucose 140 H, Calcium 9.7 11/17/22 22:55: POC Glucose 148 H 11/18/22 06:00: POC Glucose 113 H 11/18/22 06:12: WBC 6.4, RBC 3.77 L, Hgb 11.2 L, Hct 35.7 L, MCV 94.7, MCH 29.7, MCHC 31.4 L, RDW Std Deviation 47.4 H, RDW Coeff of Giuliano 13.5, Plt Count 340, MPV 9.0, Immature Gran % (Auto) 0.200, Neut % (Auto) 71.2 H, Lymph % (Auto) 15.4 L, Hughes % (Auto) 10.8 H, Eos % (Auto) 1.9, Baso % (Auto) 0.5, Absolute Neuts (auto) 4.6, Absolute Lymphs (auto) 0.98, Nucleated RBC % 0, Sodium 138, Potassium 4.3, Chloride 106, Carbon Dioxide 26.0, Anion Gap 6, BUN 30 H, Creatinine 0.84, Estim Creat Clear Calc 71.86, Est GFR (MDRD) Af Amer 90, Est GFR (MDRD) Non-Af 75, BUN/Creatinine Ratio 35.9 H, Glucose 118 H, Calcium 8.7 Rhythm Strip Rhythm Strip: Sinus Rhythm Rate: 90 Ectopy: None Radiology Impression Ankle X-Ray 11/17/22 19:12 IMPRESSION: Distal tibial and fibular fractures as described with comminution and associated displacement. Deformity of the talus which may be due to prior trauma, severe degenerative disease, cannot exclude a fracture. Underlying degenerative arthrosis of the foot bones. Electronically Signed: Dana Desai MD at 19:42 EDT Reading Location ID and State: [facility] / [facility] , Service support , Foot X-Ray 11/17/22 19:12 IMPRESSION: Fractures involving the distal tibia and fibula as described. Deformity at the level of the talus with superimposition artifact, otherwise talus suboptimally seen, difficult to exclude a fracture although findings are likely related to severe degenerative disease. Plantar calcaneal spur with mild enthesophyte at the Achilles tendon insertion site. Otherwise unremarkable calcaneus. Possible pes planus. Electronically Signed: Dana Desai MD at 19:45 EDT Reading Location ID and State: [email or web address] / [facility] , Service support , Chest X-Ray 11/17/22 20:37 IMPRESSION: No acute cardiopulmonary disease. Electronically Signed: Dana Desai MD at 21:22 EDT Reading Location ID and State: [email or web address] / [place] , Service support ,
--- NOTE | 2022-11-18 10:50 | PCM.OPRPT ---
Problems Associated Problem List Diagnoses (1) Pilon fracture of right tibia: (2) Closed fibular fracture: (3) Type 2 diabetes mellitus with foot ulcer: Report of Operation Date of Procedure: 11/18/22 Pre-Operative Diagnosis: 1. Fibular shaft fracture, right lower extremity 2. Pilon fracture, grade 2, right lower extremity 3. Full-thickness ulceration with no sign of infection, right hallux Post-Operative Diagnosis: 1. Fibular shaft fracture, right lower extremity 2. Pilon fracture, grade 2, right lower extremity 3. Full-thickness ulceration with no sign of infection, right hallux Surgery/Procedure Performed:: 1. Application of external fixator, right lower extremity 2. Surgical prep of skin graft site, right hallux 3. Application of skin graft substitute, right hallux Description of Surgical Findings:: 1. Complete reduction into anatomical alignment with the ankle of the distal fibular fracture, right lower extremity 2. Evidence of comminuted fibular fracture Moses C with displacement, right lower extremity 3. Healthy granular tissue to the plantar hallux after debridement 4. Application of skin graft substitute, epi cord, 2 x 3 cm. Surgeon: Michael Kingston deli clerk: None Type of Anesthesia: General and Local Anesthesiologist: Juan Coker Special Medications: None Specimen's removed: None Drains: None Estimated Blood Loss (mL): 5 mL Fluids Replaced: Per anesthesia Description of Procedure: Indications For Operation: Mrs. Godoy is a 57-year-old diabetic female who was admitted to [facility] for right lower extremity pilon fracture as well as fibular fracture. Date of incident was 11/17/2022. The patient was sitting in her chair while at home. Patient was currently using a Cam fracture boot for offloading her right hallux ulcer secondary to diabetes neuropathy. The patient states that she got up while wearing the Cam fracture boot slipped and her right lower extremity went under her body thus breaking her ankle. She presented to the emergency department for evaluation and was diagnosed with a pilon fracture as well as fibular fracture to the right lower extremity. Dr. Kingston was consulted for surgical evaluation, and due to to the nature of the distal tibia and fibular fracture it had deemed necessary at this time to take the patient to the operating room and apply a delta frame to get the grade 2 pilon fracture out to length as well as diastases to the right ankle. The patient also has history of chronic full-thickness ulceration to the plantar aspect of the right hallux and we will also perform surgical prep of skin graft site as well as application of skin graft substitute. The nature of the problem, anticipated procedures, postop recovery/convalences and risk/complications include but not limited to infection, wound healing complications, hypertrophic scarring, numbness, tingling, chronic pain, CRPS, over and under correction, recurrence of deformity, DVT and or PE and the need for further surgery have been discussed in great detail with the patient. All questions have been answered to the patient's satisfaction. There are no guarantees given as to the outcome of the procedure. Description of Procedure: Under mild sedation, the patient was brought into the operating room and placed on the operating table in supine position. Once the patient was under general anesthesia with endotracheal tube, the right lower extremity was blocked using approximately 10 cc 0.5% Marcaine plain to the saphenous nerve and posterior tibial nerve of the right lower extremity. Next, a well-padded thigh tourniquet was applied to the right lower extremity. Next, a timeout was then undertaken verifying the correct patient, extremity, visibility of preoperative markings, availability of the equipment. Next, the right lower extremity was prepped and draped in normal aseptic fashion. At this point, intraoperative fluoroscopy was used to identify the fracture site as well as the ankle and the appropriate starting point in the tibia. Following identification, x2 4.0 mm Schanz pins were placed in the tibia bi-cortically, which were checked under fluoroscopy. Next, using fluoroscopy the appropriate starting point on calcaneus was used for the transcalcaneal crossing pin. Once identified, a single central threaded calcaneal pin was placed across the calcaneus parallel to the joint surface. A second transfixion pin was placed across the distal pilon fracture after an adequate reduction with half Schanz pin had failed failed. After placement of all the pins, external fixator/frame was then applied and traction with attempts to get and hold the fibular shaft fracture out to length as well as the distal pilon fracture of the tibia out to length. It was noted and checked with fluoroscopy that the fracture fragment tibia/fibula was in adequate position in the sagittal and coronal planes, external fixator apparatus was then locked in place with the manufactures T-handle and per the operating system designer's recommendations. X-ray images were taken to verify correct placement of the hardware and adequate alignment of the fracture again. The Schanz pin, calcaneal and tibial crossing pin sits were dressed with jumpstart, pads and clips the proximal Schanz pins were covered with jumpstart and drain sponge, followed by application of 2 points Errol bandage for edema control. Next, attention was directed to the full-thickness ulceration which showed no sign of infection to the plantar aspect of the left hallux. The wound base was 100 and granular in nature and again no infection was noted. Surgical debridement down to and including subcutaneous tissue was done with #15 blade without incident. Sanguinous drainage was noted after debridement. Predebridement measurements were 0.5 x 0.4 x 0.1 cm, postdebridement measurements were 0.7 x 0.6 x 0.2 cm. Next, EpiCord 2.0 x 3.0 cm graft was applied to the right hallux full-thickness ulceration with 100% use. First application. The graft site was free and clear of any infection. The wound/skin graft substitute was dressed with nonadherent bandage secured in place with Steri-Strips followed by bolster dressing as well as a single layer of 2 inch Coban for compression of right hallux. The patient tolerated the procedure and spinal anesthesia well and parent satisfied condition and was transported to the PACU for the morning prior to discharge back to the floor. Vital signs stable and vascular status intact all digits bilateral. Post Operative Plan: Weightbearing: Nonweightbearing operative extremity, right lower extremity, continue to elevate with towels and or pillows with no pressure on the right heel. Antibiotics: 3 g Ancef x 1 dose given preoperatively DVT Prophylaxis: SCDs Guardado: None Dressing: External fixator, jumpstart with pads and clips, two 4 inch Errol bandages X-Rays: Post-operative films taken on the operating room. Plan for CT evaluation after reduction and application of external fixator for surgical planning. Pain Medication: Percocet 5/325, morphine 1 mg Follow-up: Once discharged from the hospital the patient will follow-up in approximately 1 week for evaluation of the external fixator as well as pin sites. Grafts/Implants Used: Epi cord, 2 x 3 cm Complications None
[2022-11-18 11:22] LABS: Bedside Glucose 134 mg/dL (74-106)
--- NOTE | 2022-11-18 11:50 | CT_ITS ---
HISTORY: Right pilon fracture. TECHNIQUE: Helically acquired images were obtained of the right ankle without contrast. 2-D reformats were performed by the technologist. A radiation dose optimization technique was used for this scan. 624 images. COMPARISON: XR prior day. FINDINGS: BONES: Interval placement of external fixation device. Displaced and comminuted distal fibula and tibia again noted. Small ventricular fracture fragments. JOINT SPACES: Mild asymmetric widening at the lateral aspect of the ankle mortise without dislocation unchanged from prior. Degenerative changes of the ankle and foot. SOFT TISSUES: Moderate surrounding soft tissue swelling. CT/Extremity Lower without Contra IMPRESSION: External fixation of comminuted right ankle fractures as above. Electronically Signed: Otilia Zuniga MD at 15:01 EDT ,
[2022-11-18] MEDS: 0.9% Normal Saline (1000mL) 1,000 ML 75 ML IV (12:13)
[2022-11-18] MEDS: Acetaminophen 325 MG Tablet 650 MG PO (15:55)
[2022-11-18 16:34] LABS: Bedside Glucose 137 mg/dL (74-106)
[2022-11-18] MEDS: Oxycodone/Apap 5/325 Tablet PO (21:21)
[2022-11-18] MEDS: MELATONIN 10 MG TABLET PO (21:21)
[2022-11-18] MEDS: Doxycycline 100 MG CAPSULE PO (21:21)
[2022-11-18 21:45] LABS: Bedside Glucose 112 mg/dL (74-106)
[2022-11-19] VITALS (8 sets, daily range): BP systolic 130–186; BP diastolic 60–92; PULSE 78–88; RESP 16–18; TEMP 36.7–37.3; O2SAT 86–97
[2022-11-19] MEDS: 0.9% Normal Saline (1000mL) 1,000 ML 75 ML IV (04:17)
[2022-11-19 05:09] LABS: Absolute Lymphocyte Count 1.17 X10^3/uL (0.83-4.51); Absolute Neutrophil Count 4.3 X10^3/uL (2.0-7.7); Basophil# 0.04 X10^3/uL; Basophil% 0.6 % (0-1); Eosinophil# 0.16 X10^3/uL; Eosinophils% 2.5 % (0-5); Hematocrit 33.4 % (37-47); Hemoglobin 10.3 g/dL (12.0-15.0); Lymphocyte # 1.17 X10^3/ul (0.83-4.51); Lymphocyte % 18.4 % (19-41); Mean Corp Hgb Conc 30.8 g/dL (32-36); Mean Corpuscular Hgb 29.4 pg (27.0-32.0); Mean Corpuscular Volume 95.4 fL (81-99); Mean Platelet Vol. 8.9 fl (6.2-12.0); Monocyte# 0.67 X10^3/uL; Monocyte% 10.5 % (0-10); NRBC Flagged by Analyzer 0 % (0-5); Neutrophil % 67.5 % (47-70); Platelet Count 303 K/mm3 (150-450); RBC Distribution Width CV 13.4 % (11.6-14.6); RBC Distribution Width SD 46.9 fl (35.1-43.9); White Blood Count 6.4 K/mm3 (4.4-11.0)
[2022-11-19 06:00] LABS: Anion Gap 4 (5-15); BUN 19 mg/dL (7-18); BUN/Creat Ratio 31.7 RATIO (10-20); Calcium,Total 8.6 mg/dL (8.5-10.1); Chloride 109 mmol/L (98-107); EST Glomerular Filtration Rate 109 mL/min (>60); Est Glom Filt Rate - Afr Amer 132 mL/min (>60); Glucose 121 mg/dL (74-106); Potassium 4.3 mmol/L (3.5-5.1); Sodium Level 140 mmol/L (136-145)
[2022-11-19] MEDS: Acetaminophen 325 MG Tablet 650 MG PO ×2 (06:51→15:49)
[2022-11-19 07:12] LABS: Bedside Glucose 105 mg/dL (74-106)
--- NOTE | 2022-11-19 09:04 | CASEMGMT ---
Social Work SW performed chart review; LW and HCPOA documents on file as of 2007. Patient's HCPOA is Otilia Jordan and alternates are Maisha Estrella and Ray Estrella. Slime IRVING, KIMANI
[2022-11-19] MEDS: Metoprolol(XL)Succ 50 MG Tablet PO (09:20)
[2022-11-19] MEDS: Multivitamins,Therapeutic Tablet 1 TABLET PO (09:20)
[2022-11-19] MEDS: Doxycycline 100 MG CAPSULE PO (09:20)
[2022-11-19] MEDS: Empagliflozin 25 MG Tablet PO (09:21)
[2022-11-19] MEDS: Cholecalciferol (VIT D3) 25 MCG TABLET (1,000 UNITS) PO (09:21)
[2022-11-19 09:49] LABS: Vitamin D,25 Hydroxy 41.7 ng/mL
--- NOTE | 2022-11-19 10:08 | CASEMGMT ---
SIDDHARTH KRUEGER Assessment: Face to Face with pt for initial transition planning/care coordination assessment. SIDDHARTH KRUEGER introduced self and role at [facility], pt voices understanding and consents to assessment. Pt is A&O x4 and answers all questions appropriately at this time. Care providers, pharmacy, and demographics verified/updated. Admitting Dx: fractures involving the distal tibia and fibula PCP:None, provided pt with a local healthcare directory pamphlet. Pt denies needs for assistance in setting up PCP. Specialists:hanna Knapp Pharmacy: [facility] Insurance: Sj JESSICA Prescription Benefit: yes LNOK: [employer], sig other Living Arrangements: Pt lives with sig other and dtr who works from home in a single story home with 3 steps to enter with a rail on both sides. Pt reports being I in ADL's prior to hospitalization and states she bathed herself this morning. Pt states sig other and dtr are able to assist at home. Transportation: Pt family provides transportation to medical appts. Pt denies concerns with transportation. DME: 3 [employer] with sufficient supplies, grab bars in the shower and at toilet, high rise toilet, 2 walkers, rollator, transport w/c HHC/SNF: Denies hx of Pt states no concerns with going home at time of dc. She is interested in HHC for SN to monitor surgical sites and also a w/c with leg rests. Discussed local DME providers in network with pt insurance, pt chose [employer]. Pt states no further concerns/needs. CM to follow. Advised pt to ask CM if any further question/concerns/needs arise, voices understanding. Pt Goal: Home with HHC Plan: Home with HHC, w/c with leg rests from [employer]
--- NOTE | 2022-11-19 10:25 | PN.SURG_ITS ---
Subjective Subjective Mrs. Godoy is a 57-year-old diabetic female seen at bedside today for evaluation status post application external fixator, surgical prep of skin graft site with application of skin graft substitute to the right lower extremity. Date of surgery: 11/18/2022. Patient is recovering well and states to only using Tylenol for pain control. She is working with physical therapy today and was transferred to her bedside chair successfully. Patient is looking forward to being discharged home. She denies any new onset of trauma or falls while in the hospital. She denies constitutional symptoms. No other pedal complaints at this time. Objective Data Objective Data Vital Signs: Vital Signs Temp Pulse Resp BP Pulse Ox O2 Del Method 99.1 F 84 16 143/64 H 96 Room Air 11/19/22 04:12 11/19/22 09:20 11/19/22 04:12 11/19/22 09:20 11/19/22 04:12 11/19/22 04:12 Oxygen Delivery Method Room Air Weight: 134 kg Body Mass Index (BMI) 46.3 Intake & Output: Intake and Output for Last 24 Hours 11/17/22 11/18/22 11/19/22 23:59 23:59 23:59 Intake Total 1141 / 1141 2000 / 2000 Output Total 1100 / 1100 1000 / 1000 Balance 41 / 41 1000 / 1000 Lab / Micro Data Attestation: I reviewed the patient's lab results. 11/19/22 04:14 11/19/22 04:14 Labs: Laboratory Results - last 24 hr 11/18/22 06:12: Vitamin D 25-Hydroxy 41.7 11/18/22 10:57: POC Glucose 134 H 11/18/22 15:56: POC Glucose 137 H 11/18/22 21:20: POC Glucose 112 H 11/19/22 04:14: WBC 6.4, RBC 3.50 L, Hgb 10.3 L, Hct 33.4 L, MCV 95.4, MCH 29.4, MCHC 30.8 L, RDW Std Deviation 46.9 H, RDW Coeff of Giuliano 13.4, Plt Count 303, MPV 8.9, Immature Gran % (Auto) 0.500, Neut % (Auto) 67.5, Lymph % (Auto) 18.4 L, [place] % (Auto) 10.5 H, Eos % (Auto) 2.5, Baso % (Auto) 0.6, Absolute Neuts (auto) 4.3, Absolute Lymphs (auto) 1.17, Nucleated RBC % 0, Sodium 140, Potassium 4.3, Chloride 109 H, Carbon Dioxide 27.0, Anion Gap 4 L, BUN 19 H, Creatinine 0.60, Estim Creat Clear Calc 100.60, Est GFR (MDRD) Af Amer 132, Est GFR (MDRD) Non-Af 109, BUN/Creatinine Ratio 31.7 H, Glucose 121 H, Calcium 8.6 11/19/22 06:42: POC Glucose 105 Radiography Diagnostic Testing: Radiology Impression Ankle X-Ray 11/18/22 09:02 IMPRESSION: External fixation of right ankle fracture. Electronically Signed: Otilia Zuniga MD at 11:02 EDT , Lower Extremity CT 11/18/22 11:50 IMPRESSION: External fixation of comminuted right ankle fractures as above. Electronically Signed: Otilia Zuniga MD at 15:01 EDT , Rhythm Strip Rhythm Strip: Sinus Rhythm Rate: 90 Ectopy: None Physical Exam Narrative Vascular: DP and PT pulses are triphasic on Doppler to the right lower extremity. Capillary refill time is brisk. Nonpitting edema appreciated to the right lower extremity. Skin temperature is warm to warm from proximal distal Errol wrap to the right lower extremity. Neurological: Light touch intact. Protective sensation is diminished. Dermatological: Nonpitting edema appreciated to the right lower extremity proximal and distal to Errol wrap. No evidence of strikethrough to the right hallux dressing. Mild strikethrough to the distal proximal lateral portion of the right lower extremity. Musculoskeletal: Active and passive range of motion to lesser digits on the right lower extremity is pain-free. No pain on palpation to the plantar aspect of the right hallux. External fixator is secured well with no evidence of loosening as tested today at bedside. No pain with calf compression. Const oriented x3 and no apparent distress Assessment & Plan Assessment/Plan (1) Pilon fracture of right tibia: QUALIFIERS: Encounter type: initial encounter Fracture type: closed Fracture alignment: displaced Qualified Code(s): S82.871A - Displaced pilon fracture of right tibia, initial encounter for closed fracture PLAN: Patient was examined and evaluated. All findings were discussed with the patient. All questions were answered to the patient's satisfaction. The patient's dressing to the right lower extremity will stay intact for approximately 7 days. She will follow-up in office for dressing changes. External fixator to the right lower extremity is intact with no evidence of loosening. Please keep the dressing clean dry and intact do not remove. I will personally do this in office. Patient will follow-up in 1 week postdischarge. Patient's definitive procedure will take place in approximately 2 weeks. This will consist of TTC fusion with plates and screws. All risk and benefits were discussed with the patient in great detail. She is understanding of this. Patient is anticipating discharge home and not to SNF either today or tomorrow. Medicine: On board PT/OT: On board Patient is clear from a podiatry perspective to discharge home when cleared by medicine team. We will continue to follow while patient is in house. Thank you for letting us be involved in the patient's care!. (2) Closed fibular fracture: QUALIFIERS: Encounter type: initial encounter Fibula location: shaft Fracture morphology: comminuted Fracture alignment: displaced Laterality: right Qualified Code(s): S82.451A - Displaced comminuted fracture of shaft of right fibula, initial encounter for closed fracture (3) Type 2 diabetes mellitus with foot ulcer: QUALIFIERS: Diabetes mellitus regional intermodal truck driver insulin use: without regional intermodal truck driver use Qualified Code(s): E11.621 - Type 2 diabetes mellitus with foot ulcer; L97.509 - Non-pressure chronic ulcer of other part of unspecified foot with unspecified severity
[2022-11-19] MEDS: Influenza Virus Vac Quad 23-24 60 MCG/0.5 ML SYRINGE IM (11:28)
[2022-11-19] MEDS: Insulin Lispro 100 UNIT/ML INSULN.PEN SC ×2 (11:30→17:15)
--- NOTE | 2022-11-19 11:41 | CASEMGMT ---
Discharge Planning A list of?SNF?providers including quality and resource use data and consistent with the patient's preferred geographic region, medical needs, and insurance network was created in [facility] Guide.? This list was provided to the RN EVANS. Sarah Swift, Discharge Planning Asst.
[2022-11-19 11:54] LABS: Bedside Glucose 187 mg/dL (74-106)
--- NOTE | 2022-11-19 11:57 | CASEMGMT ---
Addendum entered by Katherine Rogers 11/19/22 16:29: Received tc back from Dr. Knapp's office, they will not follow for homecare. Pt was accepted by [facility] with following. Pt aware they will see her on and that this RN EVANS will call her when an appt with Virginia Ruvalcaba is set up. Addendum entered by Katherine Rogers 11/19/22 15:00: [facility] declined referral d/t no pcp for pt and pod unwilling to cover the [facility] POC. RN EVANS made pt aware. Pt asked for Valerie Rowland to follow from 's office. TC to 's office, left message with this request. Pt is willing to see Nicanor Gillis at [facility] now. Pt asked S[facility]DHAR[facility] KRUEGER to set up appt. TC to , explained the situation of why pt could not have [facility]. He did agree to follow the [facility] for the pt. TC to [facility], left message to make aware that has decided to follow the [facility] and requested the referral to be reviewed again. TC to [facility] Ruvalcaba, left message with clinical pharmacologist to set up an appt for pt. Spoke with Jessica at [facility], they plan to have w/c delivered to pt home today yet. Pt is aware of the above. Addendum entered by Katherine Rogers 11/19/22 13:02: Pt [facility] choices are 1. [facility] 2. [facility] 3. [facility]. TC to [facility], referral left via . Will await acceptance. Referral sent to [facility] for w/c via [facility] at this time. Original Note: RN EVANS provided pt with a list of [facility] providers prepared by breanna garnett. Pt to review and SIDDHAR[facility] KRUEGER to check back. Provided pt with a local healthcare directory list.
--- NOTE | 2022-11-19 12:02 | DCINST_ITS ---
Discharge Instructions Diet Discharge Diet: Low fat / Low cholesterol and 1800 Calorie Control Diet Activity Discharge Activity: Return to Normal Activity Weight Bearing Status: Weight bearing as tolerated Dressing / Incision Call your doctor if you observe: Shortness of breath, Dizziness, Chest pain, Calf discomfort and Uncontrolled pain Follow Up Care Test Results: Test results from this visit will be discussed in further detail at your follow- up appointment, if applicable. Discharge Plan Admission Admit Date/Time: 11/17/22 20:36 Primary Reason for Your Visit: comminuted fracture of the right tibia and fibula Attending Provider: Monica Rangel Primary Care Provider: Care Physician,No Primary Consulting Providers: Luis Jean; Michael Kingston; Melonie Landry Instructions Patient Instructions: ED Ankle Fracture, Distal Fibula Discharge Orders/Prescriptions Prescriptions: New oxycodone 5 mg tablet 5 mg PO Q6H PRN (Reason: pain) 3 Days Qty: 12 0RF aspirin 81 mg capsule 81 mg PO BID Qty: 60 0RF Continued apple cider vinegar 600 mg capsule 600 mg PO DAILY Advil Dual Action 125-250 mg tablet 1 tab PO Q8H PRN (Reason: Pain) vitamin B complex [B Complex-Vitamin B12] Tablet 1 tab PO DAILY melatonin 3 mg tablet 10 mg PO HS PRN (Reason: sleep) cranberry 400 mg capsule 400 mg PO DAILY Rx Instructions: administer with a meal multivitamin Tablet 1 tab PO DAILY Culturelle 10 billion cell capsule 1 cap PO DAILY glimepiride 4 mg tablet 4 mg PO DAILY cholecalciferol (vitamin D3) 1,250 mcg (50,000 unit) capsule 1,000 unit PO DAILY metoprolol succinate 50 mg tablet extended release 24 hr 50 mg PO DAILY Qty: 30 5RF metformin 500 mg tablet 1,000 mg PO BIDCM Qty: 120 5RF Farxiga 10 mg tablet 10 mg PO DAILY Qty: 30 5RF Discontinued doxycycline hyclate 100 mg tablet 100 mg PO BID Qty: 20 0RF Referrals / Follow Up: Leonardo Moctezuma MD [Med Staff - Active Staff] - Within 1 Month (see to establish PCP care) Michael Kingston DPM [Med Staff - Active Staff] - Within 1 Week Care Physician,No Primary [Primary Care Provider] - Disposition Disposition (needs filled in before D/C Order can be placed): Home, Self Care
--- NOTE | 2022-11-19 12:47 | PCM.DC.SUM ---
Providers Date of Admission: 11/17/22 Date of Discharge: 11/19/22 Primary Care Physician: Cherie Primary Care Phys Consultations 11/17/22 21:53 Consult: Podiatry Routine Consulting Provider: Michael Kingston Reason for Consult: Fractures involving the distal tibia and fibula EMERGENT Consult: No MD Notified: Yes Date Notified: 11/17/22 Time Notified: 20:45 Method of Notification: ED Physician Initiated Reason For Visit: FRACTURES INVOLVING THE DISTAL TIBIA AND FIBULA Diagnosis Discharge Diagnosis (1) Pilon fracture of right tibia: Status: Acute Code(s): S82.871A - Displaced pilon fracture of right tibia, initial encounter for closed fracture Qualifiers: Encounter type: initial encounter Fracture alignment: displaced Fracture type: closed Qualified Code(s): S82.871A - Displaced pilon fracture of right tibia, initial encounter for closed fracture (2) Closed fibular fracture: Status: Acute Code(s): S82.409A - Unspecified fracture of shaft of unspecified fibula, initial encounter for closed fracture Qualifiers: Encounter type: initial encounter Fibula location: shaft Fracture alignment: displaced Fracture morphology: comminuted Laterality: right Qualified Code(s): S82.451A - Displaced comminuted fracture of shaft of right fibula, initial encounter for closed fracture (3) Type 2 diabetes mellitus with foot ulcer: Status: Chronic Code(s): E11.621 - Type 2 diabetes mellitus with foot ulcer; L97.509 - Non-pressure chronic ulcer of other part of unspecified foot with unspecified severity Qualifiers: Diabetes mellitus intermediate frame tender insulin use: without residential use Qualified Code(s): E11.621 - Type 2 diabetes mellitus with foot ulcer; L97.509 - Non-pressure chronic ulcer of other part of unspecified foot with unspecified severity Medications at Discharge Home Medications multivitamin 1 tab PO DAILY SUPPLEMENT 09/22/20 apple cider vinegar 600 mg capsule 600 mg PO DAILY VITAMIN 09/27/20 ibuprofen 125 mg-acetaminophen 250 mg tablet (Advil Dual Action) 1 tab PO Q8H PRN Pain 09/27/20 vitamin B complex (B Complex-Vitamin B12 tablet) 1 tab PO DAILY VITAMIN 09/27/20 melatonin 3 mg tablet 10 mg PO HS PRN sleep 04/24/21 metoprolol succinate 50 mg tablet,extended release 24 hr 50 mg PO DAILY BP #30 tabs 06/12/23 metformin 500 mg tablet 1,000 mg (2 x 500 mg) PO BIDCM DM #120 tabs 10/08/22 dapagliflozin propanediol 10 mg tablet (Farxiga) 10 mg PO DAILY DM #30 tabs 10/29/22 cranberry 400 mg capsule 400 mg PO DAILY VITAMIN 11/15/22 Lactobacillus rhamnosus GG 10 billion cell capsule (Culturelle) 1 cap PO DAILY PROBIOTIC 11/17/22 cholecalciferol (vitamin D3) 1,250 mcg (50,000 unit) capsule 1,000 unit PO DAILY VITAMIN 11/17/22 glimepiride 4 mg tablet 4 mg PO DAILY DM 11/17/22 aspirin 81 mg capsule 81 mg PO BID #60 caps 11/19/22 oxycodone 5 mg tablet 5 mg PO Q6H PRN pain 3 days #12 tabs 11/19/22 Hospital Course Operations - (application of external fixaator, application of skin graft substitute to RLE) Procedures None Summary of Care Provided Minutes Spent on Discharge: 55 Hospital Course: Patient is a 57-year-old female with past medical history as outlined including type 2 diabetes mellitus with peripheral neuropathy and hypertension as well as chronic wound on the plantar side of her right great toe. She was admitted through the ED on 11/17/2022 with a complaint of instability of her right ankle. She had twisted her right ankle causing her podiatry boot. Afterwards her right ankle became unstable. On admission, images done showed fractures involving the distal tibia and fibula. She was admitted and managed for debility due to comminuted displaced fractures of the right tibia and fibula. Podiatry was consulted. She was placed on IV morphine and oxycodone as well as Tylenol for pain. She was kept n.p.o. preparation for surgery. She had application of external fixator to the RLE, with application of skin graft substitute to the right lower extremity. She worked with PT./OT and pain was well controlled. She remained stable and was discharged home on 11/19/2022 with home health care. She is to follow up with her PCP and podiatry within 1-2 weeks. She was discharged on PO aspirin 81mg bid for 30 days for DVT prophylaxis. Patient seen and examined. She had no active complaints and had an uneventful night. Review of systems is otherwise negative. Labs and vitals reviewed. Home meds reviewed and reconciled. Physical Exam Const alert, oriented x3 and no apparent distress General Appearance: cooperative and comfortable Orientation / Consciousness: awake HEENT normocephalic, head/scalp atraumatic, hearing grossly normal bilaterally and moist oral mucous membranes Mouth: oral and palatal mucosa normal Eyes PERRL, EOMs intact bilaterally and conjunctivae normal Neck no lymphadenopathy and supple Resp normal respiratory effort, no retractions, no use of accessory muscles and clear to auscultation bilaterally Cardio regular rate, regular rhythm, S1 normal heart sound, S2 normal heart sound and no murmurs GI normal to inspection, nondistended, normoactive bowel sounds, soft to palpation, non-tender and non-distended Extremity Extremity Narrative: external fixator in place. RLE bandaged. Skin Skin Narrative: as under extremities. Neuro oriented x3, CN's II-XII intact bilaterally and no focal motor deficits Sensorium / Orientation: awake and alert Coordination / Balance: [id number] test normal Psych affect normal Weight / BMI Weight Weight: 295 lb 6.711 oz Body Mass Index (BMI) 46.3 ABG / Lab / Microbiology Data 11/19/22 04:14 11/19/22 04:14 Laboratory: Laboratory Results - last 24 hr 11/18/22 06:12: Vitamin D 25-Hydroxy 41.7 11/18/22 15:56: POC Glucose 137 H 11/18/22 21:20: POC Glucose 112 H 11/19/22 04:14: WBC 6.4, RBC 3.50 L, Hgb 10.3 L, Hct 33.4 L, MCV 95.4, MCH 29.4, MCHC 30.8 L, RDW Std Deviation 46.9 H, RDW Coeff of Giuliano 13.4, Plt Count 303, MPV 8.9, Immature Gran % (Auto) 0.500, Neut % (Auto) 67.5, Lymph % (Auto) 18.4 L, [place] % (Auto) 10.5 H, Eos % (Auto) 2.5, Baso % (Auto) 0.6, Absolute Neuts (auto) 4.3, Absolute Lymphs (auto) 1.17, Nucleated RBC % 0, Sodium 140, Potassium 4.3, Chloride 109 H, Carbon Dioxide 27.0, Anion Gap 4 L, BUN 19 H, Creatinine 0.60, Estim Creat Clear Calc 100.60, Est GFR (MDRD) Af Amer 132, Est GFR (MDRD) Non-Af 109, BUN/Creatinine Ratio 31.7 H, Glucose 121 H, Calcium 8.6 11/19/22 06:42: POC Glucose 105 11/19/22 11:07: POC Glucose 187 H Radiography Diagnostic Testing: Radiology Impression Lower Extremity CT 11/18/22 11:50 IMPRESSION: External fixation of comminuted right ankle fractures as above. Electronically Signed: Otilia Zuniga MD at 15:01 EDT , D/C Instructions Discharge Diet: Low fat / Low cholesterol and 1800 Calorie Control Diet Weight Bearing Status: Weight bearing as tolerated Call your doctor if you observe: Shortness of breath, Dizziness, Chest pain, Calf discomfort and Uncontrolled pain Meaningful Use Info Meaningful Use Diagnoses (Choose all that apply): None applicable Discharge Plan Admission Admit Date/Time: 11/17/22 20:36 Primary Reason for Your Visit: comminuted fracture of the right tibia and fibula Attending Provider: Monica Rangel Primary Care Provider: Care Physician,No Primary Consulting Providers: Luis Jena; Michael Kingston; Melonie Landry Instructions Patient Instructions: ED Ankle Fracture, Distal Fibula Discharge Orders/Prescriptions Prescriptions: New oxycodone 5 mg tablet 5 mg PO Q6H PRN (Reason: pain) 3 Days Qty: 12 0RF aspirin 81 mg capsule 81 mg PO BID Qty: 60 0RF Continued apple cider vinegar 600 mg capsule 600 mg PO DAILY Advil Dual Action 125-250 mg tablet 1 tab PO Q8H PRN (Reason: Pain) vitamin B complex [B Complex-Vitamin B12] Tablet 1 tab PO DAILY melatonin 3 mg tablet 10 mg PO HS PRN (Reason: sleep) cranberry 400 mg capsule 400 mg PO DAILY Rx Instructions: administer with a meal multivitamin Tablet 1 tab PO DAILY Culturelle 10 billion cell capsule 1 cap PO DAILY glimepiride 4 mg tablet 4 mg PO DAILY cholecalciferol (vitamin D3) 1,250 mcg (50,000 unit) capsule 1,000 unit PO DAILY metoprolol succinate 50 mg tablet extended release 24 hr 50 mg PO DAILY Qty: 30 5RF metformin 500 mg tablet 1,000 mg PO BIDCM Qty: 120 5RF Farxiga 10 mg tablet 10 mg PO DAILY Qty: 30 5RF Discontinued doxycycline hyclate 100 mg tablet 100 mg PO BID Qty: 20 0RF Referrals / Follow Up: Leonardo Moctezuma MD [Med Staff - Active Staff] - Within 1 Month (see to establish PCP care) Michael Kingston DPM [Med Staff - Active Staff] - Within 1 Week Care Physician,No Primary [Primary Care Provider] - Disposition Disposition (needs filled in before D/C Order can be placed): Home, Self Care Charges/Coding Visit Charges Inpatient E&M: 37662 Disch Hosp >30min
--- NOTE | 2022-11-19 13:54 | PHA.DC.MC.R ---
Pharmacy [facility] Pharm[facility] Service has performed discharge medication reconciliation and counseling for this patient. The patient's discharge medication list was reviewed for discrepancies and discrepancies were resolved. The patient was counseled on the following discharge medications and changes in medications for homegoing were reviewed. The Reason for Use, instructions for use, and potential side effects were reviewed for all new medications. The patient's questions regarding all of their medications were answered. 1. Aspirin 81 mg PO BID 2. Oxycodone 5 mg PO Q6H PRN pain The patient and patients were able to verbally demonstrate an understanding of their discharge medications. Medications at Discharge Home Medications multivitamin 1 tab PO DAILY SUPPLEMENT 09/22/20 apple cider vinegar 600 mg capsule 600 mg PO DAILY VITAMIN 09/27/20 ibuprofen 125 mg-acetaminophen 250 mg tablet (Advil Dual Action) 1 tab PO Q8H PRN Pain 09/27/20 vitamin B complex (B Complex-Vitamin B12 tablet) 1 tab PO DAILY VITAMIN 09/27/20 melatonin 3 mg tablet 10 mg PO HS PRN sleep 04/24/21 metoprolol succinate 50 mg tablet,extended release 24 hr 50 mg PO DAILY BP #30 tabs 07/30/22 metformin 500 mg tablet 1,000 mg (2 x 500 mg) PO BIDCM DM #120 tabs 10/08/22 dapagliflozin propanediol 10 mg tablet (Farxiga) 10 mg PO DAILY DM #30 tabs 10/29/22 cranberry 400 mg capsule 400 mg PO DAILY VITAMIN 11/15/22 Lactobacillus rhamnosus GG 10 billion cell capsule (Culturelle) 1 cap PO DAILY PROBIOTIC 11/17/22 cholecalciferol (vitamin D3) 1,250 mcg (50,000 unit) capsule 1,000 unit PO DAILY VITAMIN 11/17/22 glimepiride 4 mg tablet 4 mg PO DAILY DM 11/17/22 aspirin 81 mg capsule 81 mg PO BID #60 caps 11/19/22 oxycodone 5 mg tablet 5 mg PO Q6H PRN pain 3 days #12 tabs 11/19/22
[2022-11-19] MEDS: hydrALAZINE 20 MG/ML Vial 5 MG IV (15:52)
[2022-11-19 17:14] LABS: Bedside Glucose 153 mg/dL (74-106)
--- NOTE | 2022-11-20 09:05 | CASEMGMT ---
Addendum entered by Katherine Rogers 11/20/22 16:40: TC to pt to make aware that the ELR's were added to the rx for w/c. Also made aware that this RN CM has not heard from Virginia Ruvalcaba for appt time but will call her as soon as appt is made. Pt states she would like a zoom appt. Will see if that is available. Pt states she did speak to 's office who ordered her a hospital bed from [facility]. She has not received it yet. Pt again asks for [facility] phone number, provided at this time. Nathaly from [facility] requests dc summary be updated with need for w/c. Updated who will complete this. Original Note: Pt called in and states that she would like a w/c with elevated leg rests. She is aware that this RN CM will reach out to [facility] to obtain this since the w/c was ordered from the hospital. Pt also is requesting a hospital bed. She states her bed is too low at home. Pt is aware that she will need to speak to 's office about this. Pt asks for transportation to medical appts by ambulance. Provided pt with [facility] phone number and made pt aware that this may not be covered by her insurance. Pt questions PCP appt. She is aware that once RN CM hears from Virginia Ruvalcaba for appt, RN CM will call her. Pt denies further needs at this time. TC to Jil at [facility], rx updated for w/c and resubmitted via [facility]port.
--- NOTE | 2022-11-21 13:24 | CASEMGMT ---
Addendum entered by Katherine Rogers 11/21/22 15:11: Pt called back and states that she received the appt information. She states she has not yet received the ELR's. [facility] have not been able to reach pt by phone and are doing a drive by today to deliver. TC to pt to make aware of this. Addendum entered by Katherine Rogers 11/21/22 14:48: TC to pt to make aware of appt, left vm with this information for her. Sent message to Luna at [facility] to make aware as well. Addendum entered by Katherine Rogers 11/21/22 14:42: Received tc from Markus ROSALES at [facility]. She is aware this RN CM is working on PCP appt. Discussed information already provided to pt. Received tc from Tara at [facility], appt made for Nov 27 at 2pm. She states they can do zoom appts but after the first appt. Original Note: TC to [facility], left message with strategic debriefing specialist to schedule appt and asked if they do zoom appts per pt request.
--- NOTE | 2022-11-22 08:49 | CASEMGMT ---
Addendum entered by Katherine Rogers 11/22/22 10:23: Sent ammended dc summary to [facility] per request for w/c via careport. Original Note: Received tc from pt who states that the w/c does not fit through her doorways and that she did not receive the ELR's yesterday. TC to [facility], spoke with Jessica, she states if pt was measured hip to hip (which this RN CM measured at 28 in) that she could not be provided with a smaller w/c. She states she will reach out to pt for this. Confirmed pt phone number as pt reported she has not had any missed calls from them. TC to pt to make aware that [facility] will reach out and phone number given. Pt sig other measured her hip to hip and got 34 inches. Jil at [facility] to follow up.
== END 2022-11-19 18:48 | disposition home or self-care (01) | DRG 313 ==
LOC: ED 20:33 → MS3 22:08
PROVIDERS: Internal Medicine; Podiatrist Foot & Ankle Surgery; Admitting Provider Hospitalist; Emergency Provider Emergency Medicine; Visit Provider Student in an Organized Health Care Education/Training Program
PROC: 0JBQ0ZZ Excision of Right Foot Subcutaneous Tissue and Fascia, Open Approach (ICD-10-PCS; CPT 27814; principal; 2022-11-18 09:00)
DX: S82.871A Displaced pilon fracture of right tibia, initial encounter for closed fracture (principal); N17.9 Acute kidney failure, unspecified; E11.621 Type 2 diabetes mellitus with foot ulcer; E11.42 Type 2 diabetes mellitus with diabetic polyneuropathy; E66.01 Morbid (severe) obesity due to excess calories; L97.512 Non-pressure chronic ulcer of other part of right foot with fat layer exposed; Z68.42 Body mass index [BMI] 45.0-49.9, adult; I10 Essential (primary) hypertension; S82.451A Displaced comminuted fracture of shaft of right fibula, initial encounter for closed fracture; W07.XXXA Fall from chair, initial encounter; L03.115 Cellulitis of right lower limb; Z79.84 Long term (current) use of oral hypoglycemic drugs; Z79.899 Other long term (current) drug therapy; Z23 Encounter for immunization
CPT/HCPCS: 36415; 71045; 73600; 73610; 73630; 73700; 76000; 80048; 82306; 82962; 85025; 93005; 97162; 97166; 99285; C1713; J7030; J7120; 90686; A4216; J2405

== ENCOUNTER 2022-12-03 05:39 | Day surgery (SDC) | payer MEDICAID, SELFPAY ==
[2022-12-03] VITALS (7 sets, daily range): BP systolic 145–162; BP diastolic 54–99; PULSE 80–93; RESP 16–18; TEMP 36.6; O2SAT 94–100; BMI 45.4
--- NOTE | 2022-12-03 06:30 | RAD_ITS ---
INDICATION: ORIF PILON FX W/FIBULAR REPAIR -- -- 700.9 SEC FLUORO, 33.92 MGY, 9 IMAGES COMPARISON: Ankle radiographs 11/17/2022. FINDINGS: Multiple intraoperative fluoroscopic images of the ankle. Cumulative air kerma: 33.92 mGy RAD/Ankle min 3 Views IMPRESSION: Fluoroscopic images submitted. See operative report for details. Electronically Signed: Carlo Youssef MD at 23:10 EDT ,
[2022-12-03] MEDS: Lactated Ringers 1,000 ML 15 ML IV (06:52)
[2022-12-03 07:20] LABS: Bedside Glucose 143 mg/dL (74-106)
[2022-12-03] MEDS: Cefazolin 3 GM in 0.9% Normal Saline (100mL Bag) 100 ML IV (07:42)
--- NOTE | 2022-12-03 13:26 | OP.PCM_ITS ---
Problems Associated Problem List Diagnoses (1) Non-pressure chronic ulcer of other part of right foot with fat layer exposed: (2) Fracture of fibula, right, closed: (3) Chronic painful diabetic polyneuropathy: (4) Osteoarthritis of right foot joint: Report of Operation Date of Procedure: 12/03/22 Pre-Operative Diagnosis: 1. Pilon fracture closed, right lower extremity 2. Fibular fracture closed, right lower extremity 3. Full-thickness ulceration plantar hallux, right 4. Osteoarthritis, right lower extremity 5. Edema, right lower extremity 6. Diabetes mellitus type 2 with peripheral neuropathy, controlled Post-Operative Diagnosis: 1. Pilon fracture closed, right lower extremity 2. Fibular fracture closed, right lower extremity 3. Full-thickness ulceration plantar hallux, right 4. Osteoarthritis, right lower extremity 5. Edema, right lower extremity 6. Diabetes mellitus type 2 with peripheral neuropathy, controlled Surgery/Procedure Performed:: 1. Removal of external fixator, right lower ex tremity 2. Excisional debridement of bone, right lower extremity 3. Delayed primary closure, right lower extremity 4. Wall of bone marrow aspirate, right foot 5. Surgical prep of skin graft site, right hallux 6. Application of skin graft substitute, right hallux 7. Hallux, interphalangeal joint arthroplasty, right foot 8. Open reduction internal fixator displaced fibular fracture, right lower extremity 9. Open reduction internal fixator of displaced pilon fracture, grade 2, right lower extremity 10. PRP Injection, right lower extremity 11. Application of posterior AO splint, right lower extremity Description of Surgical Findings:: 1. Comminuted displaced fracture of the fibula, right lower extremity regain anatomical alignment withi 90/90 plating. 2. Comminuted displaced fracture of the tibia, right lower extremity regained anatomical alignment with medial mall plating as well as buttress plating. 3. Surgical prep of full-thickness ulceration to the plantar aspect of the right hallux with application of skin graft substitute 2 x 2 cm Biovance. Surgeon: Michael Kingston security systems sales representative: Jersey Ramsey Type of Anesthesia: Block,Regional and General Anesthesiologist: Hayden Rodriguez Special Medications: None Specimen's removed: None Drains: None Estimated Blood Loss (mL): 150 mL Fluids Replaced: 1500 cc Per anesthesia Description of Procedure: Indications For Operation: Mrs Godoy is a 57-year-old diabetic female who was admitted to [facility] for right lower extremity external fixator removal followed by debridement of bone with delayed primary closure, hallux IPJ arthroplasty with surgical skin graft site prep with application of skin graft substitute, followed by open reduction internal fixation of the pilon and fibula comminuted fracture. The patient had initially sustained comminuted pilon and fibular fracture approximately 2 weeks ago where I was consulted from the emergency department and the following day applied an external fixator to allow diastases to the ankle as well as getting the the pilon and fibular fractures out to length. Patient was seen in the office for surgical consultation with all risk and benefits discussed in great detail. Patient is currently receiving home health care for PT and occupational health as well as dressing changes and pin care to the external fixator. However due to the state of the fracture to the right lower extremity it had deemed necessary at this time to perform the procedures as listed above to help repair her leg back to anatomical alignment and decrease her constant pain. The nature of the problem, anticipated procedures, postop recovery/convalences and risk/complications include but not limited to infection, wound healing complications, hypertrophic scarring, numbness, tingling, chronic pain, CRPS, over and under correction, recurrence of deformity, DVT and or PE and the need for further surgery have been discussed in great detail with the patient. All questions have been answered to the patient's satisfaction. There are no guarantees given as to the outcome of the procedure. Description of Procedure: Under mild sedation, the patient was brought into the operating room and placed on the operating table in supine position. Once the patient was under general anesthesia with endotracheal tube, the right lower extremity was not blocked in the operating room at the time of the procedures, the popliteal and saphenous r egional block will be administered per anesthesia after the case in PACU. Next, a well-padded thigh tourniquet was applied to the right lower extremity. Next, a timeout was then undertaken verifying the correct patient, extremity, visibility of preoperative markings, availability of the equipment. Next, attention was directed to the right lower extremity external fixator. Using the Arthrex T-handle the external fixator was removed without incident. Next the right lower extremity half pins and cross pins were prepped with Betadine scrub and paint. Using the additional T-handle, all pins to the proximal tibia removed without incident followed by the distal calcaneal and tibial pins. Next, the right lower extremity was reprepped, draped in normal aseptic manner. Using a bone curette, all external fixator openings were excisionally debrided down to and including bone to the proximal tibia, distal tibia, and calcaneus without incident. Next copious amounts of normal saline was used to flush out all openings. Using 2-0 nylon, the proximal tibial openings were delayed primarily closed with simple interrupted suture technique, followed by the distal tibia openings which were closed via a delayed primary closure with simple interrupted suture technique followed by the 2 calcaneal openings which were closed via delayed primary closure with simple interrupted suture technique. Next, using a Jamshidi needle, attention was directed to the lateral aspect of the calcaneus where the Jamshidi needle was inserted for harvest of bone marrow aspirate. 60 cc of bone marrow aspirate were harvested and passed to the back table to be sent off for Bumex harvest, PRP and PPP aliquots. Next, attention was directed to the plantar aspect of the right hallux. Using a #15 blade, excisional debridement down to and including subcutaneous tissue of the full-thickness ulceration to the plantar hallux ulcer was done for surgical prep of skin graft application. The ulceration was flushed with saline, then wiped clean and patted dry. A 2 x 2 application of biovance was applied to the ulceration, 100% of use of the graft is noted, the graft was secured in place with Adaptic and Steri-Strips. Next, attention was directed to the hallux at the level of the interphalangeal joint. The joint was put through range of motion which showed decreased range of motion at the time of the operation. Using the Arthrex bur a percutaneous incision was made to the medial aspect of the IPJ. The bur was inserted across the joint. Placement was identified using clinical judgment as well as fluoroscopy. A minimally invasive joint arthroplasty was done at this time. The small percutaneous incision was opened slightly for a total of approximately 1 cm which was flushed with copious zeinab of normal saline to evacuate all bony debris. The interphalangeal joint of the right hallux were put through range of motion and showed to be increased with no evidence of crepitus or remaining bone fragments noted. The incision was closed with 2-0 nylon in horizontal mattress suture technique. Next, using large fluoroscopy, fibular fracture which was comminuted and displaced was marked out prior to incision. Using a #15 blade, full-thickness incision down to subcutaneous tissue was made. Blunt dissection was carried down to level of the comminuted fibular fracture. Akita Hair was used to remove all soft tissue around the fibula. After exposure of the fibular comminuted fracture there showed evidence of overlapping of the proximal and distal fragments. Next, a Arthrex 8 hole one third tubular plate was applied to the lateral aspect of the fibula. The distal plate was held in place with 3 5 locking screws. Using push pull technique the fibula and the plate were pushed out to length. Using tenaculums the plate and the fibula were held in place. The proximal holes to the fibula were held in place with a combination of 3 5 locking and nonlocking screws. Additional locking and nonlocking screws were applied to the distal fibular plate. A decision was made for more stability to the comminuted fracture of the fibula and a anterior 5 hole plate was held in place for 9090 plating using combination of 3 5 locking and nonlocking screws. After application of both plates, arthrocell, BMAC with alllosync bone graft was applied to the defect of the mid diaphysis of the fibula fracture. Next attention was directed to the tibia. Next, using a #15 blade a full- thickness incision down to subcutaneous tissue was made over the tibia medially. Further blunt dissection was carried down to the level of the medial malleolus and metaphysis of the tibia. It is noted that there showed evidence of comminution to the distal metaphysis as well as to the central aspect of the tibia with a displaced tillaux-chaput fragments. The distal tibia as well as the tillaux-chaput fragments were rebuilt using a combination of [id number] tenaculums and K wires. Next, a partially-threaded screw with washer was inserted from the medial malleolus through the fracture for initial stability followed by a posterior malleolus plate which was used on the medial malleolus. The plate was held in place with a combination of locking and nonlocking screws. A decision to apply a 5 hole plate in buttress technique was then applied to the anterior medial aspect of the tibia. A 5 hole plate was held in place with a combination of locking and nonlocking screws. There was noted to be some bone deficit secondary to the comminuted fracture. An additional application of arthrocell, BMAC with alllosync bone graft was applied to the defect to the distal tibia. After application of all hardware to the distal tibia the ankle was put through range of motion and showed no evidence of crepitus or locking. After the range of motion of the ankle to the right lower extremity stress views of the syndesmosis was applied and showed evidence of gapping with decreased tib-fib overlap. Decision was made to remove 2 distal locking screws and replaced them with fully threaded screws to close down the syndesmosis. Next, an injection of PRP, 3 cc was made to the level of the fibula, distal t ibia and ankle joint. Each area received approximately 1 cc of PRP. Next, all incisions were closed in layers with the deep layer being closed with 2-0 Vicryl in running locking suture technique. The subcutaneous layer was closed with 2-0 Vicryl and running suture technique. Retention sutures using 2- 0 nylon were put in place in a horizontal mattress suture technique to all incisions. The skin was reapproximated with latisha to all incisions. The right lower extremity was cleansed with hydrogen peroxide, wiped clean and patted dry. All incisions were covered with jumpstart from Arthrex, 4 x 4's and dry sterile dressing, the hallux was dressed with a bolster dressing and all dry sterile dressing was secured with Kerlix followed by a double layer Bailey AO splint which was donned to the right lower extremity. The patient tolerated the procedure and anesthesia well and apparent satisfactory condition and was transported to the PACU for further monitoring prior to discharge home. Vital signs stable and vascular status intact to all digits bilateral. Need for skilled assistant football coach: Jersey Ramsey DPM was critical to the outcome of the case. During the course of the procedure the assistant football coach physician played a vital role. His intimate knowledge of my steps in the procedure aided in safe and expedient completion of the procedure. The assistant football coach surgeon played a vital role in positioning particularly in obtaining the appropriate positioning. The assistant football coach surgeon was also vital in the retraction of soft tissues during the exposure and protecting vital structures when needed. The surgeon was also vital and obtaining fracture reduction and assisting with hardware placement throughout the case. Post Operative Plan: Weightbearing: Patient to be nonweightbearing to the right lower extremity with assistance of crutches or walker or wheelchair. Antibiotics: 3 g Ancef delivered via IV and redosed one-time for 3 g Ancef duri ng the procedure DVT Prophylaxis: 81 mg aspirin twice daily for 30 days Guardado: None Dressing: Jumpstart, 4 x 4's, Kobi wrap, double layer Bailey AO splint, right lower extremity X-Rays: Post-operative films taken on the operating room. Pain Medication: Percocet 3/325, Flexeril 10 mg, [id number] Tylenol and or Motrin Follow-up: Patient to follow-up [address] Kingston for a of splint change with application of triple layer Bailey compression AO splint. Grafts/Implants Used: 1. 2 x 2 cm Biovance applied to the full thickness ulceration, Right Hallux Complications None Admit VTE Documentation VTE Mechan Device Prophylaxis: SCD's VTE Pharm Prophylaxis ordered?: Yes
[2022-12-03 13:51] LABS: Bedside Glucose 186 mg/dL (74-106)
== END 2022-12-03 16:20 | disposition home or self-care (01) ==
LOC: SDC 05:41 → AC 05:54
PROVIDERS: Referring Provider Podiatrist Foot & Ankle Surgery; Visit Provider Podiatrist Foot & Ankle Surgery
PROC: (CPT 20694; principal; 2022-12-03 07:10)
DX: E11.621 Type 2 diabetes mellitus with foot ulcer (principal); L97.512 Non-pressure chronic ulcer of other part of right foot with fat layer exposed; E11.42 Type 2 diabetes mellitus with diabetic polyneuropathy; R60.0 Localized edema; S82.451A Displaced comminuted fracture of shaft of right fibula, initial encounter for closed fracture; M19.071 Primary osteoarthritis, right ankle and foot; S82.871A Displaced pilon fracture of right tibia, initial encounter for closed fracture; I10 Essential (primary) hypertension; Z79.84 Long term (current) use of oral hypoglycemic drugs; Z79.899 Other long term (current) drug therapy; X50.1XXA Overexertion from prolonged static or awkward postures, initial encounter; Y93.89 Activity, other specified; Y92.019 Unspecified place in single-family (private) house as the place of occurrence of the external cause
CPT/HCPCS: 20694; 0232T; 15275; 15004; 28755; 27784; 11044; 27827; 01480; 64445; 73610; 76000; 82962; C1713; J7120; J2405

== ENCOUNTER → 2022-12-14 | Outpatient (CLI) | payer MEDICAID, SELFPAY | END | disposition home or self-care (01) | PROVIDERS: Visit Provider Podiatrist Foot & Ankle Surgery | DX: L97.921 Non-pressure chronic ulcer of unspecified part of left lower leg limited to breakdown of skin (principal) | CPT/HCPCS: 87070; 87075; 87077; 87186; 87205 ==

== ENCOUNTER 2023-04-22 16:00 | Outpatient (RCR) | payer MEDICAID, SELFPAY ==
--- NOTE | 2023-03-12 11:55 | HP.PTEVAL ---
Patient's Visit Information Visit Information Visit Information: SARAI MURILLO is a 57 year old F referred to Physical Therapy by Dr. Michael Kingston DPM with a diagnosis of R pilon ankle fracture, DOS 12/03/22.. Date of Evaluation: 03/12/23 Physical Therapist: Andrew Melton DPT Visit Plan Frequency: 1-2x /Week Duration: 6 Weeks Plan: Start with ankle stretching into all ranges as tolerated, focus on DF. Ankle strengthening, gait progression with FWW and CAM boot. Progress to rollator as tolerated. Subjective Subjective: Pt. is here today for her initial evaluation with diagnosis of R pilon ankle fracture, DOS 12/03/22. Pt. reports falling in November when she tripped over her surgical shoe. Pt. fell on her gliding chair and had a resultant fracture. She has surgery, initially with external fixator then another surgery for an ORIF of her tib/fib. Pt. has been NWBing, until recently. Pt. arrives today using WC. She is now WBAT, but is to ease into WBing. Pt. previously had uncontrolled DMII, but is better controlled now. PMH: uncontrolled DMII, distal LE ulcers, peripheral neuropathy, cellulitis RLE. Due to her neuropathy she does not have much pain at all. She is in the process of trialing either an Dorothy boot or a [employer] brace to increase her stability in her ankle. Pt. is hopeful to get back to walking better in home and with least needed device. She was using a rollator prior to her injury. Objective Objective: POSTURE: Pt. is able to stand with FWW with good WBing with CAM boot in place. PALPATION: Pt. has good healing incision. Pt. had a previously wound on her great toe (plantar surface) looks good now. Pt. has skin changes due to cellulitis and marked pes planus in BLEs. NEURO: Pt. has limited sensation in distal BLEs, Pt. has slight reduction in B patellar DTR. DNT heel raises. ROM: R ankle: AROM: PF 32deg, DF 0deg, INV 1 deg, EVR 6deg. PROM PF 35deg tight, DF 3deg calf stretch, inv 4deg, EVR 8deg. Pt. has tight B HS as well. Fairly normal B knee ROM. MMT: LLE: 4+/5; RLE: ankle: DF 4/5, PF 4/5, INV 4-/5, EVR 4-/5; knee: ext 4/5, flexion 4/5. GAIT: Pt. ambulates with FWW. Pt. heavily uses FWW with gait. Pt. in CAM boot. She reports no pain, but does have increased LBP (fatigue) after ambulating 50feet this date. DNT stairs. Balance/Special Test Scores Lower Extremity Functional Score: 36 Goals Goal 1:: LTG: Pt. to be I with HEP. Goal Time Frame: 4-6 Weeks Goal 2:: STG: Pt. to have increased ROM of L ankle to 10deg of DF Goal Time Frame: 2-4 Weeks Goal 3:: LTG: Pt. to have increased RLE and core strength to 5/5 throughout. Goal Time Frame: 4-6 Weeks Goal 4:: LTG: Pt. to ambulate with CAM boot for at least 150feet without increase in symptoms of RLE or her back. Goal Time Frame: 4-6 Weeks Goal 5:: LTG: Pt. to complete TUG in less than 15 seconds with FWW. Goal Time Frame: 4-6 Weeks Rehabilitation Potential Physical Therapy Diagnosis: Pt. has signs and symptoms consistent with R pilon fx with subsequent ORIF, DOS 12/03/22. Pt. has marked hypomobility, weakness, difficulty with walking. Pt. would benefit from PT to work on the above limitations. Rehabilitation Potential: Good Anticipated Interventions Patient/Client Instruction: Educate patient on: Condition, Plan of Care, Risk Factors and Benefits of Fitness Program For the Purpose of:: To improve decision making, To facilitate caregiver knowledge, To improve self management, To prevent re-injury, To improve ability to perform tasks related to life management and To improve tolerance to ADL's Therapeutic Exercise to Include: Strength training, Power training, Endurance training, Postural training, Flexibilty training, Gait and locomotor training, Passive ROM and Active ROM For the Purpose of:: To decrease pain, To increase ROM, To improve nutrient delivery to tissue, To increase oxygenation perfusion, To improve muscle performance and motor function, To improve ability to perform ADL's, To improve gait and locomotor functions, To improve health of tissue, To decrease soft tissue restriction and To increase flexibility/ROM Text: Thank you for the opportunity to evaluate your patient. For Medicare and Medicare HMO plans, please review the plan of care and approve it. It will need to be FAXED BACK to us at [phone] for Medicare purposes. For Medicare only, by signing this I certify the plan of care. Please let me know if there are questions or concerns regarding this plan of care. Physician Signature: Date:
--- NOTE | 2023-04-23 08:56 | HP.PTREVAL ---
Re-Evaluation Intro: Dr. Michael Kingston, DPDoris, It has been my pleasure to treat SARAI MURILLO over the last 5 visits for R pilon ankle fracture, DOS 12/03/22.. Please see the progress note below for an update on the physical therapy plan of care! Subjective Subjective: Pt. reports overall doing well. She reports no pain. Pt. does have reported fairly severe neuropathy. She is walking at home with rollator/FWW. Pt. is using CAM boot, but is to get Dorothy boot once received. She reported being HEP compliant. Objective Objective/Function: ROM: 10deg of DF, 31deg PF, INV 5deg, EVR 10deg. MMT: 5/5 throughout ankle with MMT, except 4/5 , but unable to complete heel raise gait: pt. ambulates with FWW with good tolerance. Pt. does have some foot EVR in stance, No antalgic pattern. STAIRS: Pt. is able to ascend/descend with 2 HR without LOB. Pt. wishes to continue with all PT on her own at this point in time. Pt. is to complete for 2-3 weeks to determine if she can complete on her own. Plan Plan Plan: Pt. to trial her exercises and walking on her own at this point in time. I will leave her case open for 3 weeks, incase she starts to regress. At that point in time I will DC back to physician. Balance/Gait/Functional tests Balance/Special Test Scores Lower Extremity Functional Score: 42 TUG Test Time Seconds: 12 Tug Test: <20 sec.=mostly independent Goals Goals Goal 1:: LTG: Pt. to be I with HEP. Goal Time Frame: 4-6 Weeks Goal Progress: Goal Met Goal 2:: STG: Pt. to have increased ROM of L ankle to 10deg of DF Goal Time Frame: 2-4 Weeks Goal Progress: Goal Met Goal 3:: LTG: Pt. to have increased RLE and core strength to 5/5 throughout. Goal Time Frame: 2-4 Weeks Goal Progress: Progressing Goal 4:: LTG: Pt. to ambulate with CAM boot for at least 150feet without increase in symptoms of RLE or her back. Goal Time Frame: 4-6 Weeks Goal Progress: Goal Met Goal 5:: LTG: Pt. to complete TUG in less than 15 seconds with FWW. Goal Time Frame: 4-6 Weeks Goal Progress: Goal Met Anticipated Interventions Anticipated Interventions Patient/Client Instruction: Educate patient on: Condition, Plan of Care, Risk Factors and Benefits of Fitness Program For the Purpose of:: To improve decision making, To facilitate caregiver knowledge, To improve self management, To prevent re-injury, To improve ability to perform tasks related to life management and To improve tolerance to ADL's Therapeutic Exercise to Include: Strength training, Power training, Endurance training, Postural training, Flexibilty training, Gait and locomotor training, Passive ROM and Active ROM For the Purpose of:: To decrease pain, To increase ROM, To improve nutrient delivery to tissue, To increase oxygenation perfusion, To improve muscle performance and motor function, To improve ability to perform ADL's, To improve gait and locomotor functions, To improve health of tissue, To decrease soft tissue restriction and To increase flexibility/ROM Re-Evaluation Ending Re-evaluation ending: Please do not hesitate to contact me at [phone] by phone or if you have questions or concerns regarding this new plan of care! Sincerely, Andrew Melton DPT
== END 2023-04-22 19:00 | disposition home or self-care (01) ==
LOC: PT 16:00
PROVIDERS: Referring Provider Podiatrist Foot & Ankle Surgery; Visit Provider Podiatrist Foot & Ankle Surgery
DX: S82.871D Displaced pilon fracture of right tibia, subsequent encounter for closed fracture with routine healing (principal)
CPT/HCPCS: 97110; 97116; 97140; 97161; 97164

== ENCOUNTER → 2024-11-24 | Outpatient (CLI) | payer MEDICAID, SELFPAY ==
[2024-11-24 10:33] LABS: Creatinine, Urine (random) 206.00 mg/dL (28.00-217.00); Microalbumin,Random Urine 23.2 mg/L (<20 mg/L)
[2024-11-24 10:37] LABS: AST(SGOT) 16 U/L (<=31); Alanine Aminotransfer ALT/SGPT 11 U/L (<=34); Albumin, Serum 4.1 g/dL (3.5-5.0); Alkaline Phosphatase 59 U/L (35-104); Anion Gap 14 (5-15); BUN 20 mg/dL (4-19); BUN/Creat Ratio 27.7 RATIO (10-20); Calcium,Total 9.4 mg/dL (7.6-11.0); Carbon Dioxide 22.9 mmol/L (21.0-32.0); Chloride 104 mmol/L (98-108); Cholesterol 160 mg/dL (<=200); Globulin 3.2 g/dL (2.2-4.2); Glucose 102 mg/dL (70-99); Low Density Lipoprotein Calc. 88 mg/dL; Potassium 4.0 mmol/L (3.3-5.1); Triglycerides 82 mg/dL; Very Low Density Lipoprotein 16 mg/dL (5-40); cholesterol:hdl ratio screen 2.85
[2024-11-24 10:39] LABS: Vitamin D,25 Hydroxy 51.9 ng/mL (30-100)
== END | disposition home or self-care (01) ==
LOC: MTLAB 08:34
PROVIDERS: PCP Nurse Practitioner Family; Referring Provider Nurse Practitioner Family; Visit Provider Nurse Practitioner Family
DX: E11.65 Type 2 diabetes mellitus with hyperglycemia (principal)
CPT/HCPCS: 36415; 80053; 80061; 82043; 82306; 82570; 84443